=== PATIENT | female | born 1950 | race Caucasian/White ===

== ENCOUNTER 2023-10-06 13:03 | Outpatient (OUT) | payer MEDICARE, OTHER, SELFPAY ==
[2023-10-06 13:44] LABS: Microalbumin Urine Random <1.3 mg/dL (<=30.0)
[2023-10-06 13:48] LABS: Estimated Average Glucose 117 mg/dL; Glycohemoglobin A1C 5.7 % (4.5-6.2)
[2023-10-06 13:50] LABS: Basophils Absolute Auto 0.1 10^3/uL (0.0-0.1); Eosinophils Absolute Auto 0.1 10^3/uL (0.0-0.7); Hematocrit 39.3 % (36.0-48.0); Hemoglobin 13.2 g/dL (12.0-16.0); Immature Granulocytes Abs Auto 0.02 10^3/uL (0.00-0.03); Immature Granulocytes Pct Auto 0.2 % (0.0-0.5); Lymphocytes Absolute Auto 2.1 10^3/uL (1.2-3.8); Lymphocytes Percent Auto 24.6 % (20.5-60.0); Mean Corpuscular HGB Conc 33.6 g/dL (29.9-35.2); Mean Corpuscular Hemoglobin 33.3 pg (26.7-34.0); Mean Corpuscular Volume 99.2 fL (81.0-99.0); Mean Platelet Volume 9.7 fL (9.5-13.5); Monocytes Absolute Auto 0.8 10^3/uL (0.3-0.8); Monocytes Percent Auto 9.2 % (1.7-12.0); Neutrophils Absolute Auto 5.4 10^3/uL (1.4-6.5); Platelet Count 231 10^3/uL (150-450); Red Blood Count 3.96 10^6/uL (4.20-5.40); Red Cell Distribution Width 11.8 % (11.0-15.0); White Blood Count 8.4 10^3/uL (4.0-11.0)
[2023-10-06 14:02] LABS: Alanine Aminotransferase 23 U/L (14-59); Albumin Globulin Ratio 0.9; Albumin Level 3.4 g/dL (3.4-5.0); Alkaline Phosphatase 86 U/L (46-116); Anion Gap 11.9; Aspartate Amino Transferase 17 U/L (15-37); BUN Creatinine Ratio 17.5; Bilirubin Total 0.3 mg/dL (0.2-1.0); Carbon Dioxide 27.6 mmol/L (21.0-32.0); Chloride 104 mmol/L (98-107); Chol HDL Ratio 1.6; Cholesterol 119 mg/dL (<=200); Estimated GFR (African America >60 (>=60); Estimated GFR (Non-African Ame >60 (>=60); Globulin 3.6 g/dL; Glucose 82 mg/dL (74-106); HDL Cholesterol 74 mg/dL (40-60); Potassium 3.5 mmol/L (3.5-5.1); Sodium 140 mmol/L (136-145); Triglycerides 78 mg/dL (<=150); VLDL CHOLESTEROL 15.6 mg/dL
[2023-10-06 14:35] LABS: Bilirubin Urine NEGATIVE (NEGATIVE); Blood Urine NEGATIVE (NEGATIVE); Clarity Urine CLEAR (CLEAR); Color Urine YELLOW (YELLOW); Glucose Urine UA NEGATIVE (NEGATIVE); Ketones Urine NEGATIVE (NEGATIVE); Leukocyte Esterase Urine NEGATIVE (NEGATIVE); Nitrite Urine NEGATIVE (NEGATIVE); Protein Urine NEGATIVE (NEG/TRACE); Specific Gravity Urine 1.015 (1.005-1.025); Urobilinogen Urine 0.2 EU/dL (0.2-1.0)
[2023-10-06 14:56] LABS: Bacteria Urine NONE SEEN #/HPF (NONE SEEN); RBC Urine NONE SEEN #/HPF (0-2); WBC Urine NONE SEEN #/HPF (NONE SEEN)
[2023-10-06 14:57] LABS: Cast Seen? NONE SEEN #/LPF (NONE SEEN); Crystals Seen? None Seen #/HPF (None Seen); Mucus Urine NONE SEEN (NONE SEEN); Squamous Epithelial Cell Urine NONE SEEN #/LPF (NONE/RARE)
== END 2023-10-06 13:04 | disposition home or self-care (01) ==
LOC: LAB 13:08
PROVIDERS: PCP Nurse Practitioner; Visit Provider Nurse Practitioner
DX: I10 Essential (primary) hypertension (principal); E55.9 Vitamin D deficiency, unspecified; E11.9 Type 2 diabetes mellitus without complications; E78.5 Hyperlipidemia, unspecified
CPT/HCPCS: 36415; 80053; 80061; 81001; 82043; 82306; 83036; 85025

== ENCOUNTER 2023-12-25 12:46 | Outpatient (OUT) | payer MEDICARE, OTHER, SELFPAY ==
--- NOTE | 2023-12-25 12:52 | MM_ITS ---
Patient Name: SHAHRAM DAVIS MR#: [id number] : 1950 Exam Date: 12/25/2023 Ordering Doctor: PHILIP Medrano CNP RADIOLOGY REPORT PROCEDURE: MM TOMOSYNTHESIS SCREENING BI COMPARISON: MG MAMM SCREEN 3D ARIAN CAD, 12/23/2022. INDICATIONS: Screening Calculator Name NCI Breast Cancer Risk Assessment Tool 5 Year Breast Cancer Risk 1.50% Lifetime Breast Cancer Risk 4.10% Personal Breast Cancer No Personal Ovarian Cancer Yes, age 42 Treatments None Family Cancers Father with lung cancer at age 78. LOCATION: [facility] BREAST COMPOSITION: Heterogeneously dense,which may obscure small masses. FINDINGS: DIAGNOSTIC CATEGORY 2--BENIGN FINDING. NO CHANGE FROM COMPARISON. Scattered benign-appearing nodules are present. Scattered benign-appearing calcifications are present. Scattered benign-appearing lymph nodes are present. RIGHT BREAST: No significant suspicious finding. LEFT BREAST: No significant suspicious finding. RECOMMENDATIONS: ROUTINE MAMMOGRAM AND CLINICAL EVALUATION IN 12 MONTHS. PLEASE NOTE: A NORMAL MAMMOGRAM DOES NOT EXCLUDE THE POSSIBILITY OF BREAST CANCER. A CLINICALLY SUSPICIOUS PALPABLE LUMP SHOULD BE BIOPSIED. Dictated by: Pedro Anders MD on 12/25/2023 at 14:12 Approved by: Pedro Anders MD on 12/25/2023 at 14:24
--- OUTSIDE RECORDS SUMMARY | 2023-12-25 13:02 | XMS_ITS | CCD ---
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 Helper Name Role Phone Pedro Perez Primary Care Provider [phone] AICHHOLZ, SECURITIES BROKER NATALIE Admitting Unavailable AICHHOLZ, SECURITIES BROKER NATALIE Primary Care Unavailable AICHHOLZ, SECURITIES BROKER NATALIE Consulting Unavailable AICHHOLZ, SECURITIES BROKER NATALIE Attending Unavailable AICHHOLZ, SECURITIES BROKER NATALIE Primary Care Unavailable AICHHOLZ, SECURITIES BROKER NATALIE Attending Unavailable AICHHOLZ, SECURITIES BROKER NATALIE Admitting Unavailable DR LEDA CARRILLO V Consulting Unavailable AICHHOLZ, PHILIP NATALIE Consulting Unavailable Aichholz MICROARRAY SPECIALIST, Natalie Unavailable Daniel Lutz MD Primary Care Provider [phone] AICHHOLZ, NATALIE Attending Unavailable Allergies Allergy Classification Reported Allergen(s) Allergy Type Date of Onset Reaction(s) Facility Niacin (1 source) Niacin Drug Allergy 5 Itching [facility] (1 source) Niacin Drug Allergy 5 [facility] (3 sources) Niacin Drug Allergy 5 Itching, Unknown [facility] Work Phone: Medications Current Medications Medication Drug Class(es) Dates Sig (Normalized) Sig (Original) alendronic acid 35 mg oral tablet (4 sources) Bisphosphonate take 1 tablet by linda th in the morning alendronate (Fosamax) 35 MG tablet Take 35 mg by mouth every 7 (seven) days Take in the morning with a full glass of water, on an empty stomach, and do not take anything else by mouth or lie down for the next 30 min. 0 Active take 1 tablet by mouth every wee k alendronate (FOSAMAX) 35 mg tablet Take 35 mg by mouth once each week. 0 Active Comment on above: Take 35 mg by mouth once each week. aspirin 81 mg delayed release oral tablet (4 sources) Platelet Aggregation Inhibitor, Nonsteroidal Anti-inflammatory Drug take 1 tablet by mouth in the morning aspirin 81 MG EC tablet Take 81 mg by mouth in the morning. 0 Active Comment on above: Take 81 mg by mouth once daily. cholecalciferol 0.05 mg oral tablet (4 sources) Vitamin D take 1 tablet by mouth in the morning cholecalciferol 50 MCG (2000 UT) tablet Take 2,000 Units by mouth in the morning. 0 Active cholecalciferol (VITAMIN D3) 1,000 unit tab Take 6,000 Units by mouth once daily. 0 Active Comment on above: Take 6,000 Units by mouth once daily. dilTIAZem hydrochloride 30 mg oral tablet (4 sources) Calcium Channel Kateryna take 1 tablet by mouth every eight hours dilTIAZem (Cardizem) 30 MG immediate release tablet Take 30 mg by mouth every 8 (eight) hours 0 Active take 1 tablet by mouth three jose es daily diltiazem (CARDIZEM) 30 mg tablet Take 30 mg by mouth three times daily. 0 Active Comment on above: Take 30 mg by mouth three times daily. glipiZIDE 5 mg oral tablet (4 sources) Sulfonylurea take 1 tablet by mouth once daily glipiZIDE (Glucotrol) 5 MG tablet Take 5 mg by mouth 1 (one) time each day 0 Active take 1 tablet by linda th twice daily before mealtime glipiZIDE (GLUCOTROL) 10 mg tablet Take 10 mg by mouth twice daily before meals. 0 Active Comment on above: Take 10 mg by mouth twice daily before meals. 24 hr isosorbide mononitrate 30 mg extended release oral tablet (3 sources) Nitrate Vasodilator take 1 tablet by mouth in the morning, then take 1 tablet by mouth every twenty-four hours isosorbide mononitrate ER (Imdur) 30 MG 24 hr tablet Take 30 mg by mouth in the morning. Do not crush or chew.. 0 Active lisinopril 20 mg oral tablet (4 sources) Angiotensin Converting Enzyme Inhibitor take 1 tablet by mouth in the morning lisinopril 20 MG tablet Take 20 mg by mouth in the morning. 0 Active take 1 tablet by mouth once harman y lisinopril (ZESTRIL, PRINIVIL) 10 mg tablet Take 10 mg by mouth once daily. 0 Active Comment on above: Take 10 mg by mouth once daily. loratadine 10 mg oral capsule (4 sources) take 1 capsule by mouth once daily Loratadine 10 MG capsule Take 10 mg by mouth 1 (one) time each day 0 Active take 1 tablet by mouth once harman y loratadine (CLARITIN) 10 mg tablet Take 10 mg by mouth once daily. 0 Active Comment on above: Take 10 mg by mouth once daily. magnesium oxide 600 mg / pyridoxine hydrochloride 25 mg oral tablet (3 sources) take 1 tablet by mouth in the morning magnesium oxide-pyridoxine (Beelith) 362-20 MG tablet Take 1 tablet by mouth in the morning. 0 Active metFORMIN hydrochloride 500 mg oral tablet (4 sources) Biguanide take 1 tablet by mouth at mealtime metFORMIN (Glucophage) 500 MG tablet Take 500 mg by mouth in the morning. Take with meals. 0 Active Comment on above: Take 500 mg by mouth once daily. Multiple Vitamins-Minerals (CENTRUM SILVER PO) (3 sources) Multiple Vitamins-Minerals (CENTRUM SILVER PO) Take by mouth 0 Active [place]-3 Fatty Acids (Fish Oil) 1000 MG capsule delayed-release (3 sources) take 1 capsule by mouth in the morning [place]-3 Fatty Acids (Fish Oil) 1000 MG capsule delayed-release Take 1,000 mg by mouth in the morning and 1,000 mg before bedtime. 0 Active rosuvastatin calcium 20 mg oral tablet (3 sources) HMG-CoA Reductase Inhibitor take 1 tablet by mouth in the morning rosuvastatin (Crestor) 20 MG tablet Take 20 mg by mouth in the morning. 0 Active vitamin e 180 mg oral capsule (3 sources) take 1 capsule by mouth in the morning Vitamin E (E-400-Clear) 268 MG (400 UNIT) capsule Take 400 Units by mouth in the morning. 0 Active Completed/Discontinued Medications Medication Drug Class(es) Dates Sig (Normalized) Sig (Original) ascorbic acid 500 mg chewable tablet (1 source) Vitamin C take 500 mg by mouth once daily Ascorbic Acid chew Take 500 mg by mouth once daily. 0 Active Comment on above: Take 500 mg by mouth once daily. gemfibrozil 600 mg oral tablet (1 source) Peroxisome Proliferator Receptor alpha Agonist take 1 tablet by mouth once daily gemfibrozil (LOPID) 600 mg tablet Take 600 mg by mouth once daily. 0 Active Comment on above: Take 600 mg by mouth once daily. multivitamin tablet (1 source) take 1 tablet by mouth once daily multivitamin tablet Take 1 tablet by mouth once daily. 0 Active Comment on above: Take 1 tablet by linda th once daily. omeprazole 20 mg delayed release oral capsule (1 source) Proton Pump Inhibitor take 1 capsule by mouth once daily omeprazole (PRILOSEC) 20 mg capsule Take 20 mg by mouth once daily. 0 Active Comment on above: Take 20 mg by mouth once daily. simvastatin 20 mg oral tablet (1 source) HMG-CoA Reductase Inhibitor take 1 tablet by mouth once daily at bedtime simvastatin (ZOCOR) 20 mg tablet Take 20 mg by mouth daily at bedtime. 0 Active Comment on above: Take 20 mg by mouth daily at bedtime. Problems Active Problems Problem Classification Problem Date Documented Date Episodic/Chronic Chronic obstructive pulmonary disease and bronchiectasis (5 sources) Chronic obstructive lung disease; Translations: [Chronic obstructive pulmonary disease, unspecified] Onset: 10-26-2023 10-26-2023 Chronic Diabetes mellitus without complication (6 sources) Type 2 diabetes mellitus without complications; Translations: [Type 2 diabetes mellitus] Onset: 08-28-2022 10-26-2023 Chronic Disorders of lipid metabolism (4 sources) Hyperlipidemia, unspecified; Translations: [Hyperlipidemia] Onset: 08-28-2022 10-26-2023 Chronic Esophageal disorders (5 sources) Gastroesophageal reflux disease; Translations: [Gastro-esophageal reflux disease without esophagitis] Onset: 10-26-2023 10-26-2023 Chronic Essential hypertension (9 sources) Essential (primary) hypertension; Translations: [Hypertensive disorder] Onset: 08-24-2022 Chronic Nutritional deficiencies (6 sources) Vitamin D deficiency, unspecified; Translations: [Vitamin D deficiency] Onset: 08-28-2022 10-26-2023 Chronic Nutritional deficiencies (3 sources) Vitamin deficiency; Translations: [Vitamin deficiency, unspecified] Onset: 10-26-2023 10-26-2023 Episodic Osteoporosis (5 sources) Osteoporosis; Translations: [Age-related osteoporosis without current pathological fracture] Onset: 10-26-2023 10-26-2023 Chronic Other and ill-defined heart disease (3 sources) Heart disease; Translations: [Heart disease, unspecified] Onset: 10-26-2023 10-26-2023 Chronic Other ear and sense organ disorders (3 sources) Chronic right myringitis; Translations: [Chronic myringitis, right ear] Onset: 10-26-2023 10-26-2023 Chronic Other ear and sense organ disorders (3 sources) Mixed conductive and sensorineural hearing loss, bilateral; Translations: [Mixed conductive and sensorineural hearing loss, bilateral] Onset: 10-26-2023 10-26-2023 Chronic Other screening for suspected conditions (not mental disorders or infectious disease) (13 sources) Encounter for screening mammogram for malignant neoplasm of breast; Translations: [Patient encounter status] Onset: 12-23-2022 Episodic Otitis media and related conditions (6 sources) Otitis media; Translations: [Unspecified nonsuppurative otitis media, bilateral] Onset: 10-26-2023 10-26-2023 Episodic Residual codes; unclassified (1 source) Family history of malignant neoplasm of trachea, bronchus and lung; Translations: [FAM HX MALIG NEOPLSM TRACH BRON LNG] Onset: 12-29-2022 Episodic Residual codes; unclassified (3 sources) Tobacco user; Translations: [Tobacco use] Onset: 10-26-2023 10-26-2023 Episodic Spondylosis; intervertebral disc disorders; other back problems (3 sources) Lumbar radiculopathy; Translations: [Radiculopathy, lumbar region] Onset: 10-26-2023 10-26-2023 Episodic Past or Other Problems Problem Classification Problem Date Documented Da te Episodic/Chronic Mood disorders (2 sources) Mood disorders Onset: 10-26-2023 10-26-2023 Results Test Name Value Interpretation Reference Range Facility [facility] MAMM SCREEN 3D ARIAN CADon 12-23-2022 MG MAMM SCREEN 3D ARIAN CAD Patient: MARITZA ZAVALA Exam Date: 12/23/2022 : 1950 Gender:F Ordering : PHILIP MEDRANO CNP Admission #: [id number] Family : Order #: [id number] CLICK HERE TO VIEW EXAM RADIOLOGY REPORT PROCEDURE: MAMMOGRAM SCREENING 3D BILATERAL CAD COMPARISON: MG MAMM SCREEN ARIAN W CAD, 11/08/2018. MG MAMM SCREEN 3D ARIAN CAD, 01/13/2021. INDICATIONS: Screening mammography Calculator Name NCI Breast Cancer Risk Assessment Tool 5 Year Breast Cancer Risk 1.50% Lifetime Breast Cancer Risk 4.30% Personal Breast Cancer No Personal Ovarian Cancer No Treatments None Family Cancers Father with lung cancer at age 78. LOCATION: [facility] BREAST COMPOSITION: Heterogeneously dense,which may obscure small masses. FINDINGS: DIAGNOSTIC CATEGORY 2--BENIGN FINDING. NO CHANGE FROM COMPARISON. Scattered benign-appearing calcifications are present. Scattered benign-appearing lymph nodes are present. RIGHT BREAST: No significant suspicious finding. LEFT BREAST: No significant suspicious finding. RECOMMENDATIONS: ROUTINE MAMMOGRAM AND CLINICAL EVALUATION IN 12 MONTHS. PLEASE NOTE: A NORMAL MAMMOGRAM DOES NOT EXCLUDE THE POSSIBILITY OF BREAST CANCER. A CLINICALLY SUSPICIOUS PALPABLE LUMP SHOULD BE BIOPSIED. Dictated by: Leda Carrillo MD on 12/26/2022 at 10:01 Approved by: Leda Carrillo MD on 12/26/2022 at 10:[address] [facility] CBC AUTO DIFFon 08-24-2022 BASO # 0.1 103/ul Normal 0.0-0.1 [facility] Comment on above: Performed By: #### C BC #### [facility] [address] [place] [address] Dr. Steven Jones Basophils/100 WBC (Bld) 0.9 % Normal 0.2-2.0 [facility] Comment on above: Performed By: #### C BC #### [facility] [address] [place] [address] Dr. Steven Jones EO # 0.1 103/ul Normal 0.0-0.7 [facility] Comment on above: Performed By: #### C BC #### [facility] [address] [place] [address] Dr. Steven Jones Eosinophils/100 WBC (Bld) 0.9 % Normal 0.9-7.0 [facility] Comment on above: Performed By: #### C BC #### [facility] [address] [place] [address] Dr. Steven Jones Erythrocyte distribution width (RBC) [Ratio] 12.0 % Normal 11.0-15.0 [facility] Comment on above: Performed By: #### C BC #### [facility] [address] [place] [address] Dr. Steven Jones Hematocrit (Bld) [Volume fraction] 39.2 % Normal 36.0-48.0 [facility] Comment on above: Performed By: #### C BC #### [facility] [address] [place] [address] Dr. Steven Jones Hemoglobin (Bld) [Mass/Vol] 13.3 g/dL Normal 12.0-16.0 [facility] Comment on above: Performed By: #### C BC #### [facility] [address] [place] [address] Dr. Steven Jones IG # 0.02 10e3/ul Normal 0.00-0.03 [facility] Comment on above: Performed By: #### C BC #### [facility] [address] [place] [address] Dr. Steven Jones IG % 0.3 % Normal 0.0-0.5 [facility] Comment on above: Performed By: #### C BC #### [facility] [address] [place] [address] Dr. Steven Jones LYMPH # 2.1 103/ul Normal 1.2-3.8 [facility] Comment on above: Performed By: #### C BC #### [facility] [address] [place] [address] Dr. Steven Jones Lymphocytes/100 WBC (Bld) 25.8 % Normal 20.5-60.0 [facility] Comment on above: Performed By: #### C BC #### [facility] [address] [place] [address] Dr. Steven Jones MANUAL DIFF REQ NO Normal [facility] Comment on above: Performed By: #### C BC #### [facility] [address] [place] [address] Dr. Steven Jones MCH (RBC) [Entitic mass] 33.2 pg Normal 26.7-34.0 [facility] Comment on above: Performed By: #### C BC #### [facility] [address] [place] [address] Dr. Steven Jones MCHC (RBC) [Mass/Vol] 33.9 g/dL Normal 29.9-35.2 [facility] Comment on above: Performed By: #### C BC #### [facility] [address] [address] [address] Steven Jones MCV (RBC) [Entitic vol] 97.8 fL Normal 81.0-99.0 [facility] Comment on above: Performed By: #### C BC #### [facility] [address] [address] [address] Steven Jones MONO # 0.7 103/ul Normal 0.3-0.8 [facility] Comment on above: Performed By: #### C BC #### [facility] [address] [place] [address] Dr. Steven Jones Monocytes/100 WBC (Bld) 8.8 % Normal 1.7-12.0 [facility] Comment on above: Performed By: #### C BC #### [facility] [address] [place] [address] Dr. Steven Jones NEUT # 5.1 103/ul Normal 1.4-6.5 [facility] Comment on above: Performed By: #### C BC #### [facility] [address] [place] [address] Dr. Steven Jones Neutrophils/100 WBC (Bld) 63.3 % Normal 43.0-75.0 [facility] Comment on above: Performed By: #### C BC #### [facility] [address] [place] [address] Dr. Steven Jones Platelet mean volume (Bld) [Entitic vol] 9.6 fL Normal 9.5-13.5 [facility] Comment on above: Performed By: #### C BC #### [facility] [address] [place] [address] Dr. Steven Jones PLT 199 103/ul Normal 150-[address] [facility] Comment on above: Performed By: #### C BC #### [facility] [address] [place] [address] Dr. Steven Jones RBC 4.01 106/ul Critically low 4.20-5.40 [facility] Comment on above: Performed By: #### C BC #### [facility] [address] [address] [address] Steven Jones WBC 8.0 103/ul Normal 4.0-11.0 [facility] Comment on above: Performed By: #### C BC #### [facility] [address] [address] [address] Steven Jones GLYCOHEMOGLOBIN A1Con 2021 ADA RECOMMENDATION SEE BELOW Normal [facility] Comment on above: Result Comment: ADA RECOMMENDED LIMIT 4.0 - 6.0 ADA THERAPEUTIC TARGET < 7.0 ACTION SUGGESTED > 7.0 Performed By: #### A 1C #### [facility] [address] [place] [address] Dr. Steven Jones Glucose [Mass/Vol] 117 mg/dL Normal [facility] Comment on above: Performed By: #### A 1C #### [facility] [address] [place] [address] Dr. Steven Jones HbA1c (Bld) [Mass fraction] 5.7 % Normal 4.5-6.2 [facility] Comment on above: Performed By: #### A 1C #### [facility] [address] [place] [address] Dr. Steven Jones LIPID PROFILEon 08-24-2022 CHOL-HDL RATIO NORM SEE BELOW Normal [facility] Comment on above: Result Comment: 3.3 - 4.4 LOW RISK 4.4 - 7.1 AVERAGE RISK 7.1 - 11.0 MODERATE RISK >11.0 HIGH RISK Performed By: #### L IPID, CMP #### [facility] [address] [place] [address] Dr. Steven Jones Cholesterol [Mass/Vol] 110 mg/dL Normal <=200 [facility] Comment on above: Performed By: #### L IPID, CMP #### [facility] [address] [place] [address] Dr. Steven Jones Cholesterol in HDL [Mass/Vol] 64 mg/dL Critically high 40-60 [facility] Comment on above: Performed By: #### L IPID, CMP #### [facility] [address] [address] [address] Steven Jones Cholesterol in LDL [Mass/Vol] 21.2 mg/dL Normal [facility] Comment on above: Performed By: #### L IPID, CMP #### [facility] [address] [address] [address] Steven Jones Cholesterol.total/Cho lesterol in HDL [Mass ratio] 1.7 {ratio} Normal [facility] Comment on above: Performed By: #### L IPID, CMP #### [facility] [address] [address] [address] Steven Jones HDL NORMAL > or = 60 mg/dl - LO W CARDIOVASCULAR RISK <40 mg/dl - HIGH CARDIOVASCULAR RISK Normal [facility] Comment on above: Performed By: #### L IPID, CMP #### [facility] [address] [address] [address] Steven Jones LDL CALC NORMAL SEE BELOW Normal [facility] Comment on above: Result Comment: <100 mg/dl OPTIMAL 100 - 129 mg/dl NEAR OR ABOVE OPTIMAL 130 - 159 mg/dl BORDERLINE HIGH 160 - 189 mg/dl HIGH >190 mg/dl VERY HIGH Performed By: #### L IPID, CMP #### [facility] [address] [place] [address] Dr. Steven Jones Triglyceride [Mass/Vol] 124 mg/dL Normal <=150 [facility] Comment on above: Performed By: #### L IPID, CMP #### [facility] [address] [address] [address] Steven Jones VLDL CALC 24.8 mg/dL Normal [facility] Comment on above: Performed By: #### L IPID, CMP #### [facility] [address] [address] [address] Steven Jones MICROALBUMIN, RAND URon 12- mALB <1.3 Normal <=30.[address] [facility] Comment on above: Performed By: #### M ALBR #### [facility] [address] [address] [address] Steven Jones PROF 14(COMP METB)on 022 Albumin [Mass/Vol] 3.3 g/dL Critically low 3.4-5.0 [facility] Comment on above: Performed By: #### L IPID, CMP #### [facility] [address] [address] [address] Steven Jones Albumin/Globulin [Mass ratio] 0.9 {ratio} Normal [facility] Comment on above: Performed By: #### L IPID, CMP #### [facility] [address] [address] [address] Steven Jones ALP [Catalytic activity/Vol] 79 U/L Normal 46-116 [facility] Comment on above: Performed By: #### L IPID, CMP #### [facility] [address] [address] [address] Steven Jones ALT [Catalytic activity/Vol] 20 U/L Normal 14-59 [facility] Comment on above: Performed By: #### L IPID, CMP #### [facility] [address] [address] [address] Steven Jones Anion gap [Moles/Vol] 9.3 mmol/L Normal [facility] Comment on above: Performed By: #### L IPID, CMP #### [facility] [address] [address] [address] Steven Jones AST [Catalytic activity/Vol] 18 U/L Normal 15-37 [facility] Comment on above: Performed By: #### L IPID, CMP #### [facility] [address] [address] [address] Steven Jones Bilirubin [Mass/Vol] 0.4 mg/dL Normal 0.2-1.0 [facility] Comment on above: Performed By: #### L IPID, CMP #### [facility] [address] [address] [address] Steven Jones Calcium [Mass/Vol] 8.5 mg/dL Normal 8.5-10.1 [facility] Comment on above: Performed By: #### L IPID, CMP #### [facility] [address] [address] [address] Steven Jones Chloride [Moles/Vol] 105 mmol/L Normal 98-[address] [facility] Comment on above: Performed By: #### L IPID, CMP #### [facility] [address] [address] [address] Steven Jones CO2 [Moles/Vol] 29.7 mmol/L Normal 21.0-32.0 [facility] Comment on above: Performed By: #### L IPID, CMP #### [facility] [address] [address] [address] Steven Jones Creatinine [Mass/Vol] 0.54 mg/dL Critically low 0.55-1.[address] [facility] Comment on above: Performed By: #### L IPID, CMP #### [facility] [address] [address] [address] Steven Jones EGFR-AF PUERTO RICAN >60 Normal >=60 [facility] Comment on above: Performed By: #### L IPID, CMP #### [facility] [address] [address] [address] Steven Jones EGFR-NON AF PUERTO RICAN >60 Normal >=60 [facility] Comment on above: Performed By: #### L IPID, CMP #### [facility] [address] [address] [address] Steven Jones Globulin (S) [Mass/Vol] 3.5 g/dL Normal [facility] Comment on above: Performed By: #### L IPID, CMP #### [facility] [address] [address] [address] Steven Jones Glucose [Mass/Vol] 86 mg/dL Normal 74-106 [facility] Comment on above: Performed By: #### L IPID, CMP #### [facility] [address] [address] [address] Steven Jones Potassium [Moles/Vol] 4.0 mmol/L Normal 3.5-5.1 [facility] Comment on above: Performed By: #### L IPID, CMP #### [facility] [address] [place] [address] Dr. Steven Jones Protein [Mass/Vol] 6.8 g/dL Normal 6.4-8.2 [facility] Comment on above: Performed By: #### L IPID, CMP #### [facility] [address] [place] [address] Dr. Steven Jones Sodium [Moles/Vol] 140 mmol/L Normal 136-145 [facility] Comment on above: Performed By: #### L IPID, CMP #### [facility] [address] [place] [address] Dr. Steven Jones Urea nitrogen [Mass/Vol] 9.0 mg/dL Normal 7.0-18.0 [facility] Comment on above: Performed By: #### L IPID, CMP #### [facility] [address] [place] [address] Dr. Steven Jones Urea nitrogen/Creatinine [Mass ratio] 16.7 mg/mg Normal [facility] Comment on above: Performed By: #### L IPID, CMP #### [facility] [address] [place] [address] Dr. Steven Jones UA RANDOM W/MICROSCOPICon BACTERIA NONE SEEN Normal NONE SEEN [facility] Comment on above: Performed By: #### U AMIC #### [facility] [address] [place] [address] Dr. Steven Jones Bilirubin Ql (U) Negative Normal NEGATIVE [facility] Comment on above: Performed By: #### U AMIC #### [facility] [address] [place] [address] Dr. Steven Jones CAST NONE SEEN Normal NONE SEEN [facility] Comment on above: Performed By: #### U AMIC #### [facility] [address] [place] [address] Dr. Steven Jones Clarity (U) CLEAR Normal CLEAR [facility] Comment on above: Performed By: #### U AMIC #### [facility] [address] [place] [address] Dr. Steven Jones Color (U) YELLOW Normal YELLOW [facility] Comment on above: Performed By: #### U AMIC #### [facility] [address] [address] [address] Steven Jones Crystals LM Nom (Urine sed) NONE SEEN Normal NONE SEEN [facility] Comment on above: Performed By: #### U AMIC #### [facility] [address] [address] [address] Steven Jones Epithelial cells LM Ql (Urine sed) RARE Normal NONE SEEN /RARE [facility] Comment on above: Performed By: #### U AMIC #### [facility] [address] [address] [address] Steven Jones Glucose Ql (U) Negative Normal NEGATIVE [facility] Comment on above: Performed By: #### U AMIC #### [facility] [address] [address] [address] Steven Jones Hemoglobin Ql (U) Negative Normal NEGATIVE [facility] Comment on above: Performed By: #### U AMIC #### [facility] [address] [address] [address] Steven Jones Ketones Ql (U) Negative Normal NEGATIVE [facility] Comment on above: Performed By: #### U AMIC #### [facility] [address] [address] [address] Steven Jones LEUKOCYTES Negative Normal NEGATIVE [facility] Comment on above: Performed By: #### U AMIC #### [facility] [address] [address] [address] Steven Jones MUCOUS TRACE Abnormal NONE SEEN [facility] Comment on above: Performed By: #### U AMIC #### [facility] [address] [address] [address] Steven Jones Nitrite Ql (U) Negative Normal NEGATIVE [facility] Comment on above: Performed By: #### U AMIC #### [facility] [address] [address] [address] Steven Jones pH (U) 7.0 [pH] Normal 5-[address] [facility] Comment on above: Performed By: #### U AMIC #### [facility] [address] [place] [address] Dr. Steven Jones RBC 0-2 Normal 0-[address] [facility] Comment on above: Performed By: #### U AMIC #### [facility] [address] [place] [address] Dr. Steven Jones SPEC GRAVITY 1.020 Normal 1.005-<=1.025 [facility] Comment on above: Performed By: #### U AMIC #### [facility] [address] [place] [address] Dr. Steven Jones UA PROTEIN Negative Normal NEGATIVE/ TRACE [facility] Comment on above: Performed By: #### U AMIC #### [facility] [address] [place] [address] Dr. Steven Jones Urobilinogen Qn (U) 1.0 {Oracio'U}/dL Normal 0.2 - 1. 0 [facility] Comment on above: Performed By: #### U AMIC #### [facility] [address] [place] [address] Dr. Steven Jones WBC 0-2 Abnormal NONE SEEN [facility] Comment on above: Performed By: #### U AMIC #### [facility] [address] [place] [address] Dr. Steven Jones VITAMIN D 25 OHon 08-24-2022 VIT D 25-OH 36.1 ng/mL Normal [facility] Comment on above: Performed By: #### V ITAD #### [facility] [address] [place] [address] Dr. Steven Jones VIT D RANGES SEE BELOW Normal [facility] Comment on above: Result Comment: <20 ng/mL Vit D deficient 20 - <30 ng/mL Vit D insufficient 30 - 100 ng/mL Vit D sufficient >100 ng/mL Potential Toxicity Performed By: #### V ITAD #### [facility] [address] [place] [address] Dr. Steven Jones Vital Signs Date Time Vital Sign Value Performing Clinician Faci lity 10-26-2023 17:31-0500 Body height 165.1 cm Natalie Medrano MICROARRAY SPECIALIST Work Phone: [facility] 10-26-2023 17:31-0500 Body mass index (BMI) [Ratio] 20.97 kg/m2 Natalie Mitchell MICROARRAY SPECIALIST Work Phone: [facility] 10-26-2023 17:31-0500 Body temperature 97.11 [degF] Natalie Mitchell MICROARRAY SPECIALIST Work Phone: [facility] 10-26-2023 17:31-0500 Body weight 57.15 kg Natalie Mitchell MICROARRAY SPECIALIST Work Phone: [facility] 10-26-2023 17:31-0500 Diastolic blood pressure 78 mm[Hg] Natalie Mitchell MICROARRAY SPECIALIST Work Phone: [facility] 10-26-2023 17:31-0500 Heart rate 87 /min Natalie Mitchell MICROARRAY SPECIALIST Work Phone: [facility] 10-26-2023 17:31-0500 Respiratory rate 18 /min Natalie Mitchell MICROARRAY SPECIALIST Work Phone: [facility] 10-26-2023 17:31-0500 SaO2% (BldA) [Mass fraction] 97 % Natalie Mitchell MICROARRAY SPECIALIST Work Phone: [facility] 10-26-2023 17:31-0500 Systolic blood pressure 124 mm[Hg] Natalie Mitchell MICROARRAY SPECIALIST Work Phone: [facility] Healthcare Encounters Encounter Date Encounter Type Care Provider Facility Start: 10-26-2023 End: 10-26-2023 ambulatory NATALIE MITCHELL Not Available Start: 10-26-2023 Bamboo flowsheet Natalie Mitchell MICROARRAY SPECIALIST Work Phone: [facility] Start: 10-26-2023 Bamboo flowsheet Natalie Mitchell MICROARRAY SPECIALIST Work Phone: [facility] Start: 10-26-2023 End: 10-26-2023 Patient encounter procedure Natalie Medrano MICROARRAY SPECIALIST Work Phone: [facility] Comment on above: Encounter for subseq uent annual wellness visit (AWV) in Medicare patient (Primary Dx); Screening mammogram for breast cancer; Primary hypertension ([facility]); Chronic obstructive pulmonary disease, unspecified COPD type ([facility]); Gastroesophageal reflux disease, unspecified whether esophagitis present; Vitamin D deficiency; Type 2 diabetes mellitus without complication, without long-term current use of insulin ([facility]); Colon cancer screening; Osteoporosis, unspecified osteoporosis type, unspecified pathological fracture presence ([facility]) Start: 12-23-2022 End: 12-24-2022 ambulatory [employer] [facility] NATALIE MEDRANO Facility:[facility] Start: 08-24-2022 End: 08-25-2022 ambulatory [employer] NATALIE MEDRANO Facility:[facility] Start: 11-22-2016 End: 11-22-2016 Telephone encounter Caleb Avila MD Work Phone: Ophthalmology Comment on above: Future Appointment Procedures Date Procedure Procedure Detail Performing Clinician Start: 12-23-2022 Mammography Natalie rojas NP Work Phone: Plan of Treatment Date Care Activity Detail Author Start: 02-09-2025 Glaucoma screening Diabetes: R etinopathy Screening [facility] Start: 10-26-2024 Medicare Annual Wellness (AWV) Medicare Annual Wellness (AWV) [facility] Start: 10-06-2024 Urine screening for protein Diabetes: Urine Protein Screening [facility] Start: 04-25-2024 End: 04-25-2024 Patient encounter procedure 04/25/2024 1:20 PM EDT Office Visit [facility] [address] [place] [phone] Natalie Medrano NP [address] [place] [phone] [facility] Start: 04-11-2024 Pneumococcal Vaccine : 65+ Years (3 of 3 - PPSV23 or PCV20) Pneumococcal Vaccine: 65+ Years (3 of 3 - PPSV23 or PCV20) [facility] Comment on above: Postponed from 06/22 (Other Patient Reasons) Start: 01-05-2024 Hemoglobin A1c measurement Diabetes: Hemoglobin A1C [facility] Start: 12-25-2023 End: 12-24-2024 MG Breast - bilateral Screening Bilateral screening mammogram Imaging Routine Screening mammogram for breast cancer Expected: 12/25/2023 (Approximate), Expires: 12/24/2024 [facility] Work Phone: Comment on above: Expected: 12/25/2023 (Approximate), Expires: 12/24/2024 Start: 12-24-2023 Screening for malign ant neoplasm of breast Mammogram [facility] Start: 10-26-2023 End: 10-26-2023 Patient encounter procedure 10/26/2023 5:30 PM EST Office Visit [facility] [address] [place] [phone] Natalie Medrano NP [address] [place] [phone] Screening mammogram for breast cancer (Primary Dx) [facility] Comment on above: Screening mammogram for breast cancer (Primary Dx) Start: 10-26-2023 End: 10-26-2024 DXA Skeletal system Views for bone density DEXA bone density Imaging Routine Osteoporosis, unspecified osteoporosis type, unspecified pathological fracture presence ([facility]) Expected: 10/26/2023, Expires: 10/26/2024 [facility] Comment on above: Expected: 10/26/2023 , Expires: 10/26/2024 Start: 06-22-2021 Pneumococcal Vaccine : 65+ Years (3 of 3 - PPSV23 or PCV20) Pneumococcal Vaccine: 65+ Years (3 of 3 - PPSV23 or PCV20) [facility] Start: 05-12-2021 Influenza vaccination INFLUENZ A (Season Ended) [facility] Start: 2017 ADVANCE DIRECTIVE DISCUSSION ADVANCE DIRECTIVE DISCUSSION [facility] Start: 2017 BONE DENSITY BONE DENSITY [facility] Start: 2017 PNEUMOVAX AGE 65 AND OVER WITH 5YR LOOKBACK (#1) PNEUMOVAX AGE 65 AND OVER WITH 5YR LOOKBACK (#1) [facility] Start: 2002 Screening for malign ant neoplasm of colon [facility] Start: 2002 SHINGRIX VACCINE (1 of 2) SHINGRIX VACCINE (1 of 2) [facility] Start: 1997 DIABETES SCREEN DIABETES SCREEN [facility] Start: 1997 LIPID SCREEN LIPID SCREEN [facility] Start: 1992 Mammography MAMMOGRAM [facility] Start: 1971 Urine microalbumin profile DTAP,TDAP,TD (1 - Tdap) [facility] Start: 1970 HEPATITIS C SCREENING HEPATITIS C SC REENING [facility] Start: 1964 Adult depression screening assessment DEPRESSION SCREENING [facility] Start: 1962 Glaucoma screening Diabetes: R etinopathy Screening [facility] Start: 1952 Medicare Annual Wellness (AWV) Medicare Annual Wellness (AWV) [facility] Noninvasive colorect al cancer DNA and occult blood screening [Presence] in Stool Cologuard colon cancer screening Lab Routine Colon cancer screening Ordered: 10/26/2023 [facility] Comment on above: Ordered: 10/26/2023 Immunizations Immunization Date Immunization Notes Care Provider Fa [facility] 07-06-2023 Influenza, High-dose Seasonal, Quadrivalent, Preservative Free Natalie Aichholz MICROARRAY SPECIALIST Work Phone: [facility] 06-01-2022 Influenza, High-dose Seasonal, Quadrivalent, Preservative Free Natalie Aichholz MICROARRAY SPECIALIST Work Phone: [facility] 07-29-2021 Seasonal, quadrivale nt, recombinant, injectable influenza vaccine, preservative free Natalie Aichholz MICROARRAY SPECIALIST Work Phone: [facility] 06-06-2020 influenza, high dose seasonal, preservative-free Natalie Aichholz MICROARRAY SPECIALIST Work Phone: [facility] 06-05-2020 influenza, seasonal, injectable Natalie Aichholz MICROARRAY SPECIALIST Work Phone: [facility] 05-18-2019 influenza, high dose seasonal, preservative-free Natalie Aichholz MICROARRAY SPECIALIST Work Phone: [facility] 05-18-2019 pneumococcal conjuga te vaccine, 13 valent Natalie Aichholz MICROARRAY SPECIALIST Work Phone: [facility] 06-12-2018 influenza, high dose seasonal, preservative-free Natalie Aichholz MICROARRAY SPECIALIST Work Phone: [facility] 07-06-2017 influenza, high dose seasonal, preservative-free Natalie Aichholz MICROARRAY SPECIALIST Work Phone: [facility] 06-28-2017 influenza, injectabl e, quadrivalent, preservative free Natalie Aichholz MICROARRAY SPECIALIST Work Phone: [facility] 06-22-2016 pneumococcal polysaccharide vaccine, 23 valent Natalie Aichholz MICROARRAY SPECIALIST Work Phone: [facility] 06-22-2016 zoster vaccine, live Natalie chholz MICROARRAY SPECIALIST Work Phone: [facility] 06-17-2015 influenza, seasonal, injectable, preservative free Natalie Aichholz MICROARRAY SPECIALIST Work Phone: [facility] 04-07-2014 pneumococcal polysaccharide vaccine, 23 valent Natalie Aichholz MICROARRAY SPECIALIST Work Phone: [facility] 01-28-2014 zoster vaccine, live Natalie chholz MICROARRAY SPECIALIST Work Phone: [facility] 07-24-2013 influenza, seasonal, injectable Natalie Aichholz MICROARRAY SPECIALIST Work Phone: [facility] Healthcare Payers Date Payer Category Payer Unknown [employer] [id number] 2022-Present [address] [employer] [place] [address] [id number] 2017 Medicare MEDICARE MEDICAR E PART B [id number] 2017-[place] [address] [place] [address] Medicare [id number] 2015 Unknown [employer] [id number] 2015-Present PPO [id number] 1959 Medicare [id number] 1959 Unknown [id number] 1952 Unknown [id number] 1952 Unknown [id number] 1952 Unknown [id number] Social History Date Type Detail Facility Start: 07-31-2015 End: 10-26-2023 Tobacco smoking status DEIS Current every day smoker [facility] History of tobacco use Cigarette Smoker [facility] Start: 07-31-2015 End: 10-26-2023 Cigarettes smoked current (pack per day) - Reported [facility] Start: 07-31-2015 End: 10-26-2023 Alcohol intake Current drinker of alcohol (finding) [facility] Start: 1950 Sex Assigned [facility] Start: 10-23-2023 End: 10-26-2023 Tobacco use panel [facility] Start: 10-23-2023 Alcohol Comment caffeine 2-3 c ups per day [facility] Start: 10-26-2023 Tobacco use and exposure Smoke less tobacco non-user [facility] Within the last year , have you been afraid of your partner or ex-partner? No [facility] Do you belong to any clubs or organizations such as sikhism groups, unions, fraternal or athletic groups, or school groups? Yes [facility] Are you now , , , , never or living with a partner? [facility] How often to you hav e a drink containing alcohol? Monthly or less [facility] How many standard dr inks containing alcohol do you have on a typical day? Patient does not drink [facility] How often do you hav e 6 or more drinks on 1 occasion? Never [facility] Do you feel stress - tense, restless, nervous, or anxious, or unable to sleep at night because your mind is troubled all the time - these days [OSQ] Not at all [facility] (I/We) worried wheth er (my/our) food would run out before (I/we) got money to buy more. Never true [facility] History of Present illness Narrative 10-26-2023 Natalie Medrano NP - 10/26/2023 6:04 PM Jose Medrano, NURIA - 10/26/2023 6:03 PM Jose Medrano, NURIA - 10/26/2023 6:03 PM Jose Medrano, NURIA - 10/26/2023 6:02 PM EST Note Date & Type Note Facility 10-26-2023 History of Presen t illness Narrative Associated Problem(s): Encounter for subsequent annual wellness visit (AWV) in Medicare patient Reviewed Ht/Wt/BMI Recommend eye exam yearly Recommend dental exams twice a year Balance work/leisure activities Exercises is recommended most days of the week (appropriate as chronic conditions allow) Follow up yearly and prn Associated Problem(s): Type 2 diabetes mellitus ([facility]) Check blood sugars daily, notify if <70 or >200. Take medications (pills or insulin) as directed. Monitor for s/s of hypoglycemia (sweaty, dizziness, nausea, vomiting, or shakiness). Watch for increase in thirst, urination, or appetite. Inspect feet frequently monitoring for open wounds , and also recommend yearly eye exam. Pt should attempt to remain as physically active as chronic conditions allow, as well as trying to follow a diet low in carbohydrates, and simple sugars. Associated Problem(s): Vitamin D deficiency Reviewed labs Associated Problem(s): GERD (gastroesophageal reflux disease) stable Associated Problem(s): Hypertension (CMS/HCC) At goal Associated Problem(s): COPD (chronic obstructive pulmonary disease) (CMS/HCC) No changes in meds Stomach bug last week with cramps, gas, and diarrhea that lasted for a few days. 130/69 BP this morning Images from the original note were not included. Maritza Zavala is a 73 y.o. female presents with chief complaint of No chief complaint on file. HPI: AWV today Diabetes She has type 2 diabetes mellitus. Her disease course has been stable. There are no hypoglycemic associated symptoms. Pertinent negatives for hypoglycemia include no dizziness, headaches, nervousness/anxiousness, seizures or tremors. There are no diabetic associated symptoms. Pertinent negatives for diabetes include no chest pain, no foot ulcerations, no polydipsia, no polyphagia and no polyuria. There are no hypoglycemic complications. Symptoms are stable. There are no diabetic complications. Risk factors for coronary artery disease include dyslipidemia, diabetes mellitus, hypertension and tobacco exposure. Current diabetic treatment includes oral agent (monotherapy). She is compliant with treatment all of the time. She has not had a previous visit with a dietitian. Her overall blood glucose range is 110-130 mg/dl. An JENN inhibitor/angiotensin II receptor kateryna is being taken. She does not see a agronomy professor.Eye exam is current. Hypertension This is a chronic problem. The current episode started more than 1 year ago. The problem is unchanged. The problem is controlled. Pertinent negatives include no chest pain, headaches, palpitations or shortness of breath. There are no associated agents to hypertension. Risk factors for coronary artery disease include dyslipidemia, smoking/tobacco exposure and post-menopausal state. Past treatments include JENN inhibitors. The current treatment provides significant improvement. There are no compliance problems. SUBJECTIVE: MEDICATIONS: Current Outpatient Medications Medication Instructions alendronate (FOSAMAX) 35 mg, Oral, Every 7 days, Take in the morning with a full glass of water, on an empty stomach, and do not take anything else by mouth or lie down for the next 30 min. aspirin 81 mg, Oral, Daily cholecalciferol (CHOLECALCIFEROL) 2,000 Units, Oral, Daily dilTIAZem (CARDIZEM) 30 mg, Oral, Every 8 hours Fish Oil 1,000 mg, Oral, 2 times daily glipiZIDE (GLUCOTROL) 5 mg, Oral, Daily isosorbide mononitrate ER (IMDUR) 30 mg, Oral, Daily, Do not crush or chew. lisinopril 20 mg, Oral, Daily Loratadine 10 mg, Oral, Daily magnesium oxide-pyridoxine (Beelith) 362-20 MG tablet 1 tablet, Oral, Daily metFORMIN (GLUCOPHAGE) 500 mg, Oral, Daily with breakfast Multiple Vitamins-Minerals (CENTRUM SILVER PO) Oral rosuvastatin (CRESTOR) 20 mg, Oral, Daily Vitamin E (E-400-CLEAR) 400 Units, Oral, Daily ALLERGIES: Allergies Allergen Reactions Niacin Itching and Unknown REVIEW OF SYMPTOMS: Review of Systems Constitutional: Negative for appetite change, chills and fever. HENT: Negative for congestion, ear pain and sore throat. Eyes: Negative for pain, discharge, redness and visual disturbance. Respiratory: Negative for cough, shortness of breath and wheezing. Cardiovascular: Negative for chest pain, palpitations and leg swelling. Gastrointestinal: Negative for abdominal pain, blood in stool, constipation, diarrhea, nausea and vomiting. Genitourinary: Negative for difficulty urinating, dysuria and frequency. Musculoskeletal: Negative for arthralgias, back pain, joint swelling and myalgias. Skin: Negative for rash and wound. Neurological: Negative for dizziness, tremors, seizures, syncope and headaches. Psychiatric/Behavioral: Negative for behavioral problems, self-injury and suicidal ideas. The patient is not nervous/anxious. Hematological: Does not bruise/bleed easily. Endocrine: Negative for polydipsia, polyphagia and polyuria. Allergic/Immunologic: Negative for environmental allergies and food allergies. PAST MEDICAL HISTORY Past Medical History: Diagnosis Date Bilateral otitis media with effusion 10/26/2023 Chronic myringitis of right ear 10/26/2023 COPD (chronic obstructive pulmonary disease) ([facility] 10/26/2023 ETD (Eustachian tube dysfunction), bilateral 10/26/2023 GERD (gastroesophageal reflux disease) 10/26/2023 Heart problem 10/26/2023 Hyperlipidemia ([facility]) 10/26/2023 Hypertension ([facility]) 10/26/2023 Lumbar back pain with radiculopathy affecting left lower extremity 10/26/2023 Mixed conductive and sensorineural hearing loss of both ears 10/26/2023 Osteoporosis ([facility]) 10/26/2023 Tobacco user 10/26/2023 Type 2 diabetes mellitus ([facility]) 10/26/2023 Vitamin D deficiency 10/26/2023 Vitamin deficiency 10/26/2023 Past Surgical History: Procedure Laterality Date APPENDECTOMY 2007 with r/o 18 intestines BREAST LUMPECTOMY Right COLECTOMY Right MYRINGOTOMY W/ TUBES 08/25/2020 BMT, Timmis OTHER SURGICAL HISTORY 06/16/2015 bilat. T-tubes TONSILLECTOMY TOTAL ABDOMINAL HYSTERECTOMY 1993 family history includes Cancer in her paternal grandfather; Crohn's disease in her mother; Diabetes in her brother and paternal grandmother; Heart disease in her brother, maternal grandmother, and mother; fire in her maternal grandfather; high triglycerides in her mother. OBJECTIVE: Visit Vitals BP 124/78 (BP Location: Left arm, Patient Position: Sitting, BP Cuff Size: Adult long) Pulse 87 Temp 97.1 F (Temporal) Resp 18 Ht 5' 5 Wt 126 lb SpO2 97% BMI 20.97 kg/m Smoking Status Every Day BSA 1.62 m Physical Exam Vitals reviewed. Constitutional: General: She is not in acute distress. Appearance: Normal appearance. HENT: Head: Normocephalic and atraumatic. Right Ear: Tympanic membrane, ear canal and external ear normal. Left Ear: Tympanic membrane, ear canal and external ear normal. Ears: Comments: Scarring to TM's Nose: Nose normal. Mouth/Throat: Mouth: Mucous membranes are moist. Eyes: Extraocular Movements: Extraocular movements intact. Conjunctiva/sclera: Conjunctivae normal. Neck: Vascular: No carotid bruit. Cardiovascular: Rate and Rhythm: Normal rate and regular rhythm. Pulses: Normal pulses. Heart sounds: Normal heart sounds. Pulmonary: Effort: Pulmonary effort is normal. Breath sounds: Normal breath sounds. Abdominal: General: Bowel sounds are normal. There is no distension. Palpations: Abdomen is soft. There is no mass. Tenderness: There is no abdominal tenderness. Musculoskeletal: General: Normal range of motion. Cervical back: Normal range of motion and neck supple. Skin: General: Skin is warm and dry. Capillary Refill: Capillary refill takes 2 to 3 seconds. Findings: No rash. Neurological: General: No focal deficit present. Mental Status: She is alert and oriented to person, place, and time. Psychiatric: Mood and Affect: Mood normal. Behavior: Behavior normal. Thought Content: Thought content normal. Judgment: Judgment normal. ASSESSMENT AND PLAN: No follow-ups on file. Problem List Items Addressed This Visit COPD (chronic obstructive pulmonary disease) (CMS/HCC) No changes in meds Hypertension (CMS/[facility]) At goal GERD (gastroesophageal reflux disease) stable Osteoporosis ([facility]) Relevant Orders DEXA bone density Vitamin D deficiency Reviewed labs Type 2 diabetes mellitus ([facility]) Check blood sugars daily, notify if <70 or >200. Take medications (pills or insulin) as directed. Monitor for s/s of hypoglycemia (sweaty, dizziness, nausea, vomiting, or shakiness). Watch for increase in thirst, urination, or appetite. Inspect feet frequently monitoring for open wounds , and also recommend yearly eye exam. Pt should attempt to remain as physically active as chronic conditions allow, as well as trying to follow a diet low in carbohydrates, and simple sugars. Screening mammogram for breast cancer Relevant Orders Bilateral screening mammogram Encounter for subsequent annual wellness visit (AWV) in Medicare patient - Primary Reviewed Ht/Wt/BMI Recommend eye exam yearly Recommend dental exams twice a year Balance work/leisure activities Exercises is recommended most days of the week (appropriate as chronic conditions allow) Follow up yearly and prn Colon cancer screening Relevant Orders Cologuard colon cancer screening documented in this encounter [facility] Healthcare Note 11-22-2016 Telephone Encounter - Sole Fischer - 11/22/2016 12:30 PM EDT Note Date & Type Note Facility 11-22-2016 Miscellaneous Notes From: Sole Avila Sent: Tuesday, November 22, 2016 12:30 PM Left message on both # s to call back for scheduling. Thanks. From: Caleb Avila Sent: Tuesday, November 22, 2016 12:[address] Jordana Gallegos called me requesting that we see the patient below. Jennifer Zavala Her mom's cell# [phone] Could you call her and coordinate a time for us to see her in the next 1-3 weeks? documented in this encounter [facility] Evaluation note Note Date & Type Note Facility Evaluation note Diagnosis Encounter for subsequent annual wellness visit (AWV) in Medicare patient- Primary Screening mammogram for breast cancer Primary hypertension (CMS/HCC) Unspecified essential hypertension Chronic obstructive pulmonary disease, unspecified COPD type (CMS/HCC) Gastroesophageal reflux disease, unspecified whether esophagitis present Vitamin D deficiency Type 2 diabetes mellitus without complication, without long-term current use of insulin (CMS/HCC) Colon cancer screening Special screening for malignant neoplasms, colon Osteoporosis, unspecified osteoporosis type, unspecified pathological fracture presence (CMS/HCC) documented in this encounter [facility] Summary Purpose Family History No Family History Records FoundNo Family History Records Found Advance Directives No Advanced Directives Records FoundNo Advanced Directives Records Found Additional Source Comments Source Comments (unrecognize d section and content) In the event this informatio n is protected by the Federal Confidentiality of Alcohol and Drug Abuse Patient Records regulations: The Federal rules restrict any use of the information to criminally investigate or prosecute any alcohol or drug abuse patient.[facility] Reason for Visit (unrecogniz ed section and content) Reason Onset Date Comments Future Appointment 11/22/2016 INFORMATION SOURCE (unrecogn ized section and content) DATE CREATED AUTHOR 12/29/2022 [facility] DATE CREATED AUTHOR AUTHOR'S ORGANIZ ATION 10/28/2023 [facility] Care Teams (unrecognized sec tion and content) [employer]ber [employer]amer Helper Relationship Specialty Start Date End Date Daniel Lutz MD [address] [place] [id number] PCP - General Family Medicine 10/23/23 Natalie Medrano NP [address] [place] [phone] Nurse Practitioner Family Medicine 07/12/23 [employer] Helper Relationship Specialty Start Date End Date Daniel Lutz MD [address] [place] [id number] PCP - General Family Medicine 10/23/23 Natalie Medrano NP [address] [place] [phone] Nurse Practitioner Family Medicine 07/12/23 FOR RECORDS PERTAINING TO PATIENTS WHO ARE OR HAVE BEEN ENROLLED IN A CHEMICAL DEPENDENCY/SUBSTANCEABUSE PROGRAM, SOME INFORMATION MAY BE OMITTED. This clinical summary was aggregated from multiple sources. Caution should be exercised in using it in the provision of clinical care. This summary normalizes information from multiple sources, and as a consequence, information in this document may materially change the coding, format and clinical context of patient data. In addition, data may be omitted in some cases. CLINICAL DECISIONS SHOULD BE BASED ON THE PRIMARY CLINICAL RECORDS. [employer] [facility]. provides no warranty or guarantee of the accuracy or completeness of information in this document.
== END 2023-12-25 12:47 | disposition home or self-care (01) ==
LOC: MAMMO 12:46
PROVIDERS: PCP Nurse Practitioner; Visit Provider Nurse Practitioner
DX: Z12.31 Encounter for screening mammogram for malignant neoplasm of breast (principal); M81.0 Age-related osteoporosis without current pathological fracture; Z80.1 Family history of malignant neoplasm of trachea, bronchus and lung
CPT/HCPCS: 77063; 77067

== ENCOUNTER 2024-10-25 14:43 | Outpatient (OUT) | payer MEDICARE, OTHER, SELFPAY ==
--- OUTSIDE RECORDS SUMMARY | 2024-10-25 14:55 | XMS_ITS | CCD ---
Author Organization [facility] Inform ion Partnership [facility] Care Team Providers Care Geological Technician Name Role Phone Pedro Perez Primary Care Provider AICHHOLZ, MOTORCYCLE DESIGNER NATALIE Admitting Unavailable AICHHOLZ, MOTORCYCLE DESIGNER NATALIE Primary Care Unavailable AICHHOLZ, MOTORCYCLE DESIGNER NATALIE Consulting Unavailable AICHHOLZ, MOTORCYCLE DESIGNER NATALIE Attending Unavailable AICHHOLZ, MOTORCYCLE DESIGNER NATALIE Primary Care Unavailable AICHHOLZ, MOTORCYCLE DESIGNER NATALIE Attending Unavailable AICHHOLZ, MOTORCYCLE DESIGNER NATALIE Admitting Unavailable DR LEDA CARRILLO V Consulting Unavailable AICHHOLZ, MOTORCYCLE DESIGNER NATALIE Consulting Unavailable Aichholz PLASTIC MAKER, Natalie Unavailable Daniel Lutz MD Primary Care Provider AICHHOLZ, NATALIE Attending Unavailable AICHHOLZ, NATALIE Attending Unavailable Aichholz PLASTIC MAKER, Natalie Unavailable Allergies Allergy Classification Reported Allergen(s) Allergy Type Date of Onset Reaction(s) Facility Niacin (1 source) Niacin Drug Allergy 5 Itching [facility] (1 source) Niacin Drug Allergy 5 [facility] (6 sources) Niacin Drug Allergy 5 Itching, Unknown [facility] Work Phone: Medications Current Medications Medication Drug Class(es) Dates Sig (Normalized) Sig (Original) alendronic acid 35 mg oral tablet (8 sources) Bisphosphonate Start: 07-23-2024 End: 10-15-2024 take 1 tablet by mouth in the morning alendronate (Fosamax) 35 MG tablet Indications: Age-related osteoporosis without current pathological fracture (CMS/HCC) Take 1 tablet (35 mg) by mouth every 7 (seven) days Take in the morning with a full glass of water, on an empty stomach, and do not take anything else by mouth or lie down for the next 30 min. 12 tablet 1 07/23/2024 10/15/2024 Active take 1 tablet by mouth in the mo rn alendronate (Fosamax) 35 MG tablet Take 35 mg by mouth every 7 (seven) days Take in the morning with a full glass of water, on an empty stomach, and do not take anything else by mouth or lie down for the next 30 min. Active take 1 tablet by mouth every wee k alendronate (FOSAMAX) 35 mg tablet Take 35 mg by mouth once each week. 0 Active Comment on above: Take 35 mg by mouth once each week. aspirin 81 mg delayed release oral tablet (7 sources) Platelet Aggregation Inhibitor, Nonsteroidal Anti-inflammatory Drug take 1 tablet by mouth in the morning aspirin 81 MG EC tablet Take 81 mg by mouth in the morning. Active Comment on above: Take 81 mg by mouth once daily. cholecalciferol 0.05 mg oral tablet (7 sources) Vitamin D take 1 tablet by mouth in the morning cholecalciferol 50 MCG (2000 UT) tablet Take 2,000 Units by mouth in the morning. Active cholecalciferol (VITAMIN D3) 1,000 unit tab Take 6,000 Units by mouth once daily. 0 Active Comment on above: Take 6,000 Units by mouth once daily. dilTIAZem hydrochloride 30 mg oral tablet (8 sources) Calcium Channel Kateryna Start: 4 End: 4 take 1 tablet by mouth every eight hours dilTIAZem (Cardizem) 30 MG immediate release tablet Indications: Essential (primary) hypertension (CMS/HCC) Take 1 tablet (30 mg) by mouth every 8 (eight) hours 270 tablet 1 04/30/2024 Active take 1 tablet by mouth three [...] day 0 Active take 1 tablet by twice daily before mealtime glipiZIDE (GLUCOTROL) 10 mg tablet Take 10 mg by mouth twice daily before meals. 0 Active Comment on above: Take 10 mg by mouth twice daily before meals. 24 hr isosorbide mononitrate 30 mg extended release oral tablet (7 sources) Nitrate Vasodilator Start: 4 End: 4 take 1 tablet by mouth once daily isosorbide mononitrate ER (Imdur) 30 MG 24 hr tablet Indications: Essential (primary) hypertension (CMS/HCC) Take 1 tablet (30 mg) by mouth Daily 90 tablet 1 04/30/2024 Active lisinopril 20 mg oral tablet (7 sources) Angiotensin Converting Enzyme Inhibitor take 1 tablet by mouth in the morning lisinopril 20 MG tablet Take 20 mg by mouth in the morning. Active take 1 tablet by mouth once harman y lisinopril (ZESTRIL, PRINIVIL) 10 mg tablet Take 10 mg by mouth once daily. 0 Active Comment on above: Take 10 mg by mouth once daily. loratadine 10 mg oral capsule (7 sources) take 1 capsule by mouth once daily Loratadine 10 MG capsule Take 10 mg by mouth 1 (one) time each day Active take 1 tablet by mouth once harman y loratadine (CLARITIN) 10 mg tablet Take 10 mg by mouth once daily. 0 Active Comment on above: Take 10 mg by mouth once daily. magnesium oxide 600 mg / pyridoxine hydrochloride 25 mg oral tablet (6 sources) take 1 tablet by mouth in the morning magnesium oxide-pyridoxine (Beelith) 362-20 MG tablet Take 1 tablet by mouth in the morning. Active metFORMIN hydrochloride 500 mg oral tablet (8 sources) Biguanide Start: 04-30-20 24 End: 07-29-20 24 take 1 tablet by mouth at mealtime metFORMIN (Glucophage) 500 MG tablet Indications: Type 2 diabetes mellitus without complications (CMS/HCC) Take 1 tablet (500 mg) by mouth in the morning. Take with meals. 90 tablet 1 04/30/2024 Active Comment on above: Take 500 mg by mouth once daily. Multiple Vitamins-Minerals (CENTRUM SILVER PO) (6 sources) Multiple Vitamins-Minerals (CENTRUM SILVER PO) Take by mouth Active Multiple Vitamin s-Minerals (CENTRUM SILVER PO) Take by mouth 0 Active [place]-3 Fatty Acids (Fish Oi l) 1000 MG capsule delayed-release (6 sources) take 1 capsule by mouth in the morning [place]-3 Fatty Acids (Fish Oil) 1000 MG capsule delayed-release Take 1,000 mg by mouth in the morning and 1,000 mg before bedtime. Active take 1 capsule by mouth in the m orning [place]-3 Fatty Acids (Fish Oil) 1000 MG capsule delayed-release Take 1,000 mg by mouth in the morning and 1,000 mg before bedtime. 0 Active rosuvastatin calcium 20 mg oral tablet (7 sources) HMG-CoA Reductase Inhibitor Start: 04-30-2024 End: 07-29-2024 take 1 tablet by mouth at bedtime rosuvastatin (Crestor) 20 MG tablet Indications: Hyperlipidemia, unspecified (CMS/HCC) Take 1 tablet (20 mg) by mouth at bedtime 90 tablet 1 04/30/2024 Active timolol 2.5 mg/ml ophthalmic solution (3 sources) beta-Adrenergic Kateryna Start: 02-23-2024 take 1 drop(s) into the eye(s) in the morning timolol (Timoptic) 0.25 % ophthalmic solution instill 1 DROP IN BOTH EYES IN THE MORNING 02/23/2024 Active vitamin e 180 mg oral capsule (6 sources) take 1 capsule by mouth in the morning Vitamin E (E-400-Clear) 268 MG (400 UNIT) capsule Take 400 Units by mouth in the morning. Active Completed/Discontinued Medications Medication Drug Class(es) Dates [...] Episodic/Chronic Chronic obstructive pulmonary disease and bronchiectasis (8 sources) Chronic obstructive lung disease; Translations: [Chronic obstructive pulmonary disease, unspecified] Onset: 10-26-2023 10-26-2023 Chronic Diabetes mellitus without complication (10 sources) Type 2 diabetes mellitus without complications; Translations: [Type 2 diabetes mellitus] Onset: 08-28-2022 10-26-2023 Chronic Disorders of lipid metabolism (8 sources) Hyperlipidemia, unspecified; Translations: [Hyperlipidemia] Onset: 08-28-2022 10-26-2023 Chronic Esophageal disorders (8 sources) Gastroesophageal reflux disease; Translations: [Gastro-esophageal reflux disease without esophagitis] Onset: 10-26-2023 10-26-2023 Chronic Essential hypertension (13 sources) Essential (primary) hypertension; Translations: [Hypertensive disorder] Onset: 08-24-2022 Chronic Nutritional deficiencies (9 sources) Vitamin D deficiency, unspecified; Translations: [Vitamin D deficiency] Onset: 08-28-2022 10-26-2023 Chronic Osteoporosis (9 sources) Osteoporosis; Translations: [Age-related osteoporosis without current pathological fracture] Onset: 10-26-2023 10-26-2023 Chronic Other and ill-defined heart disease (6 sources) Heart disease; Translations: [Heart disease, unspecified] Onset: 10-26-2023 10-26-2023 Chronic Other ear and sense organ disorders (6 sources) Chronic right myringitis; Translations: [Chronic myringitis, right ear] Onset: 10-26-2023 10-26-2023 Chronic Other ear and sense organ disorders (6 sources) Mixed conductive and sensorineural hearing loss, bilateral; Translations: [Mixed conductive and sensorineural hearing loss, bilateral] Onset: 10-26-2023 10-26-2023 Chronic Residual codes; unclassified (1 source) Family history of malignant neoplasm of trachea, bronchus and lung; Translations: [FAM HX MALIG NEOPLSM TRACH BRON LNG] Onset: 12-29-2022 Episodic Past or Other Problems Problem Classification Problem Date Documented Date Episodic/Chronic Mood disorders (5 sources) Mood disorders Onset: 10-26-2023 10-26-2023 Nutritional deficiencies (6 sources) Vitamin deficiency; Translations: [Vitamin deficiency, unspecified] Onset: 10-26-2023 10-26-2023 Episodic Other screening for suspected conditions (not mental disorders or infectious disease) (19 sources) Encounter for screening mammogram for malignant neoplasm of breast; Translations: [Patient encounter status] Onset: 12-23-2022 Episodic Otitis media and related conditions (12 sources) Otitis media; Translations: [Unspecified nonsuppurative otitis media, bilateral] Onset: 10-26-2023 10-26-2023 Episodic Residual codes; unclassified (6 sources) Tobacco user; Translations: [Tobacco use] Onset: 10-26-2023 10-26-2023 Episodic Spondylosis; intervertebral disc disorders; other back problems (9 sources) Lumbar radiculopathy; Translations: [Radiculopathy, lumbar region] Onset: 10-26-2023 10-26-2023 Episodic Results Test Name Value Interpretation Reference Range Facility MG MAMM SCREEN 3D ARIAN CADon 12-23-2022 MG MAMM SCREEN 3D ARIAN CAD Patient: MARITZA ZAVALA Exam Date: 12/23/2022 : 1950 Gender:F Ordering : PHILIP MEDRANO [facility] Admission #: [id number] Family : Order #: [id number] CLICK HERE TO VIEW EXAM RADIOLOGY REPORT PROCEDURE: MAMMOGRAM SCREENING 3D BILATERAL CAD COMPARISON: MG MAMM SCREEN ARIAN W CAD, 11/08/2018. MG MAMM SCREEN 3D ARINA CAD, 01/13/2021. INDICATIONS: Screening mammography Calculator Name NCI Breast Cancer Risk Assessment Tool 5 Year Breast Cancer Risk 1.50% Lifetime Breast Cancer Risk 4.30% Personal Breast Cancer No Personal Ovarian Cancer No Treatments None Family Cancers Father with lung cancer at age 78. LOCATION: [facility] BREAST COMPOSITION: Heterogeneously dense,which may obscure [...] MD on 12/26/2022 at 10:03 Normal [facility] CBC AUTO DIFFon 08-24-2022 BASO # 0.1 103/ul Normal 0.0-0.1 [facility] Comment on above: Performed By: #### C BC #### [facility] [address] [place] [address] Dr. Steven Jones Basophils/100 WBC (Bld) 0.9 % Normal 0.2-2.0 [facility] Comment on above: Performed By: #### C BC #### [facility] [address] [place] [address] Dr. Steven Jones EO # 0.1 103/ul Normal 0.0-0.7 [facility] Comment on above: Performed By: #### C BC #### [facility] [address] [place] [address] Dr. Steven Jones Eosinophils/100 WBC (Bld) 0.9 % Normal 0.9-7.0 [facility] Comment on above: Performed By: #### C BC #### [facility] [address] [place] [address] Dr. Steven Jones Erythrocyte distribution width (RBC) [Ratio] 12.0 % Normal 11.0-15.0 [facility] Comment on above: Performed By: #### C BC #### [facility] [address] [place] [address] Dr. Steven Jones Hematocrit (Bld) [Volume fraction] 39.2 % Normal 36.0-48.0 [facility] Comment on above: Performed By: #### C BC #### [facility] [address] [place] [address] Dr. Steven Jones Hemoglobin (Bld) [Mass/Vol] 13.3 g/dL Normal 12.0-16.0 [facility] Comment on above: Performed By: #### C BC #### [facility] [address] [place] [address] Dr. Steven Jones IG # 0.02 10e3/ul Normal 0.00-0.03 [facility] Comment on above: Performed By: #### C BC #### [facility] [address] [place] [address] Dr. Steven Jones IG % 0.3 % Normal 0.0-0.5 [facility] Comment on above: Performed By: #### C BC #### [facility] [address] [place] [address] Dr. Steven Jones LYMPH # 2.1 103/ul Normal 1.2-3.8 [facility] Comment on above: Performed By: #### C BC #### [facility] [address] [place] [address] Dr. Steven Jones Lymphocytes/100 WBC (Bld) 25.8 % Normal 20.5-60.0 [facility] Comment on above: Performed By: #### C BC #### [facility] [address] [place] [address] Dr. Steven Jones MANUAL DIFF REQ NO Normal [facility] Comment on above: Performed By: #### C BC #### [facility] [address] [place] [address] Dr. Steven Jones MCH (RBC) [Entitic mass] 33.2 pg Normal 26.7-34.0 [facility] Comment on above: Performed By: #### C BC #### [facility] [address] [place] [address] Dr. Steven Jones MCHC (RBC) [Mass/Vol] 33.9 g/dL Normal 29.9-35.2 [facility] Comment on above: Performed By: #### C BC #### [facility] [address] [place] [address] Dr. Steven Jones MCV (RBC) [Entitic vol] 97.8 fL Normal 81.0-99.0 [facility] Comment on above: Performed By: #### C BC #### [facility] [address] [place] [address] Dr. Steven Jones MONO # 0.7 103/ul Normal 0.3-0.8 [facility] Comment on above: Performed By: #### C BC #### [facility] [address] [place] [address] Dr. Steven Jones Monocytes/100 WBC (Bld) 8.8 % Normal 1.7-12.0 [facility] Comment on above: Performed By: #### C BC #### [facility] [address] [place] [address] Dr. Steven Jones NEUT # 5.1 103/ul Normal 1.4-6.5 [facility] Comment on above: Performed By: #### C BC #### [facility] [address] [place] [address] Dr. Steven Jones Neutrophils/100 WBC (Bld) 63.3 % Normal 43.0-75.0 [facility] Comment on above: Performed By: #### C BC #### [facility] [address] [place] [address] Dr. Steven Jones Platelet mean volume (Bld) [Entitic vol] 9.6 fL Normal 9.5-13.5 [facility] Comment on above: Performed By: #### C BC #### [facility] [address] [place] [address] Dr. Steven Jones PLT 199 103/ul Normal 150-450 [facility] Comment on above: Performed By: #### C BC #### [facility] [address] [place] [address] Dr. Steven Jones RBC 4.01 106/ul Critically low 4.20-5.[address] [facility] Comment on above: Performed By: #### C BC #### [facility] [address] [place] [address] Dr. Steven Jones WBC 8.0 103/ul Normal 4.0-11.0 [facility] Comment on above: Performed By: #### C BC #### [facility] [address] [place] [address] Dr. Steven Jones GLYCOHEMOGLOBIN A1Con 2021 ADA RECOMMENDATION SEE BELOW Normal [facility] Comment on above: Result Comment: ADA RECOMMENDED LIMIT 4.0 - 6.0 ADA THERAPEUTIC TARGET < 7.0 ACTION SUGGESTED > 7.0 Performed By: #### A 1C #### [facility] [address] [address] [address] Steven Jones Glucose [Mass/Vol] 117 mg/dL Normal [facility] Comment on above: Performed By: #### A 1C #### [facility] [address] [address] [address] Steven Jones HbA1c (Bld) [Mass fraction] 5.7 % Normal 4.5-6.2 [facility] Comment on above: Performed By: #### A 1C #### [facility] [address] [place] [address] Dr. Steven Jones LIPID PROFILEon 08-24-2022 CHOL-HDL RATIO NORM SEE BELOW Normal [facility] Comment on above: Result Comment: 3.3 - 4.4 LOW RISK 4.4 - 7.1 AVERAGE RISK 7.1 - 11.0 MODERATE RISK >11.0 HIGH RISK Performed By: #### L IPID, CMP #### [facility] [address] [place] [address] Dr. Steven Jones Cholesterol [Mass/Vol] 110 mg/dL Normal <=200 [facility] Comment on above: Performed By: #### L IPID, CMP #### [facility] [address] [address] [address] Steven Jones Cholesterol in HDL [Mass/Vol] 64 mg/dL Critically high 40-60 [facility] Comment on above: Performed By: #### L IPID, CMP #### [facility] [address] [address] [address] Steven Jones Cholesterol in LDL [Mass/Vol] 21.2 mg/dL Normal [facility] Comment on above: Performed By: #### L IPID, CMP #### [facility] [address] [address] [address] Steven Jones Cholesterol.total/Cho lesterol in HDL [Mass ratio] 1.7 {ratio} Normal [facility] Comment on above: Performed By: #### L IPID, CMP #### [facility] [address] [address] [address] Steven Jones HDL NORMAL > or = 60 mg/dl - LO W CARDIOVASCULAR RISK <40 mg/dl - HIGH CARDIOVASCULAR RISK Normal [facility] Comment on above: Performed By: #### L IPID, CMP #### [facility] [address] [address] [address] Steven Jones LDL CALC NORMAL SEE BELOW Normal [facility] Comment on above: Result Comment: <100 mg/dl OPTIMAL 100 - 129 mg/dl NEAR OR ABOVE OPTIMAL 130 - 159 mg/dl BORDERLINE HIGH 160 - 189 mg/dl HIGH >190 mg/dl VERY HIGH Performed By: #### L IPID, CMP #### [facility] [address] [address] [address] Steven Jones Triglyceride [Mass/Vol] 124 mg/dL Normal <=150 [facility] Comment on above: Performed By: #### L IPID, CMP #### [facility] [address] [address] [address] Steven Jones VLDL CALC 24.8 mg/dL Normal [facility] Comment on above: Performed By: #### L IPID, CMP #### [facility] [address] [address] [address] Steven Jones MICROALBUMIN, RAND URon 08-11 mALB <1.3 Normal <=30.0 [facility] Comment on above: Performed By: #### M ALBR #### [facility] [address] [address] [address] Steven Jones PROF 14(COMP METB)on 022 Albumin [Mass/Vol] 3.3 g/dL Critically low 3.4-5.0 [facility] Comment on above: Performed By: #### L IPID, CMP #### [facility] [address] [address] [address] Steven Jones Albumin/Globulin [Mass ratio] 0.9 {ratio} Normal [facility] Comment on above: Performed By: #### L IPID, CMP #### [facility] [address] [address] [address] Steven Jones ALP [Catalytic activity/Vol] 79 U/L Normal 46-116 [facility] Comment on above: Performed By: #### L IPID, CMP #### [facility] [address] [address] [address] Steven Jones ALT [Catalytic activity/Vol] 20 U/L Normal 14-59 [facility] Comment on above: Performed By: #### L IPID, CMP #### [facility] [address] [address] [address] Steven Jones Anion gap [Moles/Vol] 9.3 mmol/L Normal [facility] Comment on above: Performed By: #### L IPID, CMP #### [facility] [address] [address] [address] Steven Jones AST [Catalytic activity/Vol] 18 U/L Normal 15-37 [facility] Comment on above: Performed By: #### L IPID, CMP #### [facility] [address] [address] [address] Steven Jones Bilirubin [Mass/Vol] 0.4 mg/dL Normal 0.2-1.0 [facility] Comment on above: Performed By: #### L IPID, CMP #### [facility] [address] [address] [address] Steven Jones Calcium [Mass/Vol] 8.5 mg/dL Normal 8.5-10.1 [facility] Comment on above: Performed By: #### L IPID, CMP #### [facility] [address] [address] [address] Steven Jones Chloride [Moles/Vol] 105 mmol/L Normal 98-107 [facility] Comment on above: Performed By: #### L IPID, CMP #### [facility] [address] [address] [address] Steven Jones CO2 [Moles/Vol] 29.7 mmol/L Normal 21.0-32.0 [facility] Comment on above: Performed By: #### L IPID, CMP #### [facility] [address] [address] [address] Steven Jones Creatinine [Mass/Vol] 0.54 mg/dL Critically low 0.55-1.02 [facility] Comment on above: Performed By: #### L IPID, CMP #### [facility] [address] [address] [address] Steven Jones EGFR-AF NIGERIEN >60 Normal >=60 [facility] Comment on above: Performed By: #### L IPID, CMP #### [facility] [address] [address] [address] Steven Jones EGFR-NON AF NIGERIEN >60 Normal >=60 [facility] Comment on above: Performed By: #### L IPID, CMP #### [facility] [address] [address] [address] Steven Jones Globulin (S) [Mass/Vol] 3.5 g/dL Normal [facility] Comment on above: Performed By: #### L IPID, CMP #### [facility] [address] [address] [address] Steven Jones Glucose [Mass/Vol] 86 mg/dL Normal 74-106 [facility] Comment on above: Performed By: #### L IPID, CMP #### [facility] [address] [address] [address] Steven Jones Potassium [Moles/Vol] 4.0 mmol/L Normal 3.5-5.1 [facility] Comment on above: Performed By: #### L IPID, CMP #### [facility] [address] [address] [address] Steven Jones Protein [Mass/Vol] 6.8 g/dL Normal 6.4-8.2 [facility] Comment on above: Performed By: #### L IPID, CMP #### [facility] [address] [address] [address] Steven Jones Sodium [Moles/Vol] 140 mmol/L Normal 136-145 [facility] Comment on above: Performed By: #### L IPID, CMP #### [facility] [address] [place] [address] Dr. Steven Jones Urea nitrogen [Mass/Vol] 9.0 mg/dL Normal 7.0-18.0 [facility] Comment on above: Performed By: #### L IPID, CMP #### [facility] [address] [place] [address] Dr. Steven Jones Urea nitrogen/Creatinine [Mass ratio] 16.7 mg/mg Normal [facility] Comment on above: Performed By: #### L IPID, CMP #### [facility] [address] [place] [address] Dr. Steven Jones UA RANDOM W/MICROSCOPICon BACTERIA NONE SEEN Normal NONE SEEN [facility] Comment on above: Performed By: #### U AMIC #### [facility] [address] [place] [address] Dr. Steven Jones Bilirubin Ql (U) Negative Normal NEGATIVE [facility] Comment on above: Performed By: #### U AMIC #### [facility] [facility] [address] [place] [address] Dr. Steven Jones CAST NONE SEEN Normal NONE SEEN [facility] Comment on above: Performed By: #### U AMIC #### [facility] [address] [place] [address] Dr. Steven Jones Clarity (U) CLEAR Normal CLEAR [facility] Comment on above: Performed By: #### U AMIC #### [facility] [address] [place] [address] Dr. Steven Jones Color (U) YELLOW Normal YELLOW [facility] Comment on above: Performed By: #### U AMIC #### [facility] [address] [place] [address] Dr. Steven Jones Crystals LM Nom (Urine sed) NONE SEEN Normal NONE SEEN [facility] Comment on above: Performed By: #### U AMIC #### [facility] [address] [place] [address] Dr. Steven Jones Epithelial cells LM Ql (Urine sed) RARE Normal NONE SEEN /RARE [facility] Comment on above: Performed By: #### U AMIC #### [facility] [address] [address] [address] Steven Jones Glucose Ql (U) Negative Normal NEGATIVE [facility] Comment on above: Performed By: #### U AMIC #### [facility] [address] [address] [address] Steven Jones Hemoglobin Ql (U) Negative Normal NEGATIVE [facility] Comment on above: Performed By: #### U AMIC #### [facility] [address] [address] [address] Steven Jones Ketones Ql (U) Negative Normal NEGATIVE [facility] Comment on above: Performed By: #### U AMIC #### [facility] [address] [place] [address] Dr. Steven Jones LEUKOCYTES Negative Normal NEGATIVE [facility] Comment on above: Performed By: #### U AMIC #### [facility] [address] [address] [address] Steven Jones MUCOUS TRACE Abnormal NONE SEEN [facility] Comment on above: Performed By: #### U AMIC #### [facility] [address] [address] [address] Steven Jones Nitrite Ql (U) Negative Normal NEGATIVE [facility] Comment on above: Performed By: #### U AMIC #### [facility] [address] [address] [address] Steven Jones pH (U) 7.0 [pH] Normal 5-9 [facility] Comment on above: Performed By: #### U AMIC #### [facility] [address] [address] [address] Steven Jones RBC 0-2 Normal 0-2 [facility] Comment on above: Performed By: #### U AMIC #### [facility] [address] [address] [address] Steven Jones SPEC GRAVITY 1.020 Normal 1.005-<=1.025 [facility] Comment on above: Performed By: #### U AMIC #### [facility] [address] [address] [address] Steven Jones UA PROTEIN Negative Normal NEGATIVE/ TRACE [facility] Comment on above: Performed By: #### U AMIC #### [facility] [address] [address] [address] Steven Jones Urobilinogen Qn (U) 1.0 {Oracio'U}/dL Normal 0.2 - 1. 0 [facility] Comment on above: Performed By: #### U AMIC #### [facility] [address] [address] [address] Steven Jones WBC 0-2 Abnormal NONE SEEN [facility] Comment on above: Performed By: #### U AMIC #### [facility] [address] [place] [address] Dr. Steven Jones VITAMIN D 25 OHon 08-24-2022 VIT D 25-OH 36.1 ng/mL Normal [facility] Comment on above: Performed By: #### V ITAD #### [facility] [address] [place] [address] Dr. Steven Jones VIT D RANGES SEE BELOW Normal [facility] Comment on above: Result Comment: <20 ng/mL Vit D deficient 20 - <30 ng/mL Vit D insufficient 30 - 100 ng/mL Vit D sufficient >100 ng/mL Potential Toxicity Performed By: #### V ITAD #### [facility] [address] [place] [address] Dr. Steven Jones Vital Signs Date Time Vital Sign Value Performing Clinician Faci lity 10-26-2023 17:31-0500 Body height 165.1 cm Natalie Medrano PLASTIC MAKER Work Phone: [facility] 10-26-2023 17:31-0500 Body mass index (BMI) [Ratio] 20.97 kg/m2 Natalie Medrano PLASTIC MAKER Work Phone: [facility] 10-26-2023 17:31-0500 Body temperature 97.11 [degF] Natalie Medrano PLASTIC MAKER Work Phone: [facility] 10-26-2023 17:31-0500 Body weight 57.15 kg Natalie Aichholz PLASTIC MAKER Work Phone: [facility] 10-26-2023 17:31-0500 Diastolic blood pressure 78 mm[Hg] Natalie Aichholz PLASTIC MAKER Work Phone: [facility] 10-26-2023 17:31-0500 Heart rate 87 /min Natalie Aichholz PLASTIC MAKER Work Phone: [facility] 10-26-2023 17:31-0500 Respiratory rate 18 /min Natalie Aichholz PLASTIC MAKER Work Phone: [facility] 10-26-2023 17:31-0500 SaO2% (BldA) [Mass fraction] 97 % Natalie Aichholz PLASTIC MAKER Work Phone: [facility] 10-26-2023 17:31-0500 Systolic blood pressure 124 mm[Hg] Natalie Aichholz PLASTIC MAKER Work Phone: [facility] Healthcare Encounters Encounter Date Encounter Type Care Provider Facility Start: 07-23-2024 End: 07-23-2024 Refill Natalie Aichholz PLASTIC MAKER Work Phone: [facility] Comment on above: Age-related osteopor osis without current pathological fracture ([facility]/HCC) Start: 04-30-2024 End: 04-30-2024 Refill Natalie Aichholz PLASTIC MAKER Work Phone: [facility] Comment on above: Hyperlipidemia, unsp ecified (CMS/HCC); Essential (primary) hypertension ([facility]) Type 2 diabetes ana itus without complications ([facility]) Start: 04-25-2024 End: 04-25-2024 ambulatory NATALIE AICHHOLZ Not Available Start: 10-26-2023 End: 10-26-2023 ambulatory NATALIE AICHHOLZ Not Available Start: 10-26-2023 Bamboo flowsheet Natalie Aichholz PLASTIC MAKER Work Phone: [facility] Start: 10-26-2023 Bamboo flowsheet Natalie Medrano PLASTIC MAKER Work Phone: [facility] Start: 10-26-2023 End: 10-26-2023 Patient encounter procedure Natalie Medrano PLASTIC MAKER Work Phone: [facility] Comment on above: Encounter for subseq uent annual wellness visit (AWV) in Medicare patient (Primary Dx); Screening mammogram for breast cancer; Primary hypertension ([facility]/HCC); Chronic obstructive pulmonary disease, unspecified COPD type ([facility]); Gastroesophageal reflux disease, unspecified whether esophagitis present; Vitamin D deficiency; Type 2 diabetes mellitus without complication, without long-term current use of insulin ([facility]); Colon cancer screening; Osteoporosis, unspecified osteoporosis type, unspecified pathological fracture presence ([facility]) Start: 12-23-2022 End: 12-24-2022 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:[facility] Start: 08-24-2022 End: 08-25-2022 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 LELIA Facility:[facility] Start: 11-22-2016 End: 11-22-2016 Telephone encounter Caleb Avila MD Work Phone: Ophthalmology Comment on above: Future Appointment Procedures Date Procedure Procedure Detail Performing Clinician Start: 12-25-2023 Mammography Natalie rojas PLASTIC MAKER Work Phone: Start: 12-23-2022 Mammography Natalie rojas PLASTIC MAKER Work Phone: Plan of Treatment Date Care Activity Detail Author Start: 02-09-2025 Glaucoma screening Diabetes: R etinopathy Screening [facility] Start: 12-24-2024 Screening for malign ant neoplasm of breast Mammogram [facility] Start: 10-30-2024 End: 10-30-2024 Patient encounter procedure 10/30/2024 4:30 PM EST Office Visit [facility] [address] [place] [phone] Natalie Medrano NP [address] [place] [phone] [facility] Start: 10-26-2024 Medicare Annual Wellness (AWV) Medicare Annual Wellness (AWV) [facility] Start: 10-06-2024 Urine screening for protein Diabetes: Urine Protein Screening [facility] Start: 05-12-2024 Influenza vaccination Influenza Vacc ine (#1) [facility] Start: 04-25-2024 End: 04-25-2024 Patient encounter procedure 04/25/2024 1:20 PM EDT Office Visit [facility] [address] [place] [phone] Natalie Medrano, NURIA [address] [place] [phone] [facility] Start: 04-11-2024 Pneumococcal Vaccine : 65+ Years (3 of 3 - PPSV23 or PCV20) Pneumococcal Vaccine: 65+ Years (3 of 3 - PPSV23 or PCV20) [facility] Comment on above: Postponed from 06/22 (Other Patient Reasons) Start: 01-05-2024 Hemoglobin A1c measurement Diabetes: Hemoglobin A1C [facility] Start: 12-25-2023 End: 12-24-2024 MG Breast - bilateral Screening Bilateral screening mammogram Imaging Routine Screening mammogram for breast cancer Expected: 12/25/2023 (Approximate), Expires: 12/24/2024 [facility] Work Phone: Comment on above: Expected: 12/25/2023 (Approximate), Expires: 12/24/2024 Start: 12-24-2023 Screening for malign ant neoplasm of breast Mammogram [facility] Start: 10-26-2023 End: 10-26-2023 Patient encounter procedure 10/26/2023 5:30 PM EST Office Visit [facility] [address] [place] [phone] Natalie Medrano, PLASTIC MAKER [address] [place] [phone] Screening mammogram for breast cancer (Primary Dx) [facility] Comment on above: Screening mammogram for breast cancer (Primary Dx) Start: 10-26-2023 End: 10-26-2024 DXA Skeletal system Views for bone density DEXA bone density Imaging Routine Osteoporosis, unspecified osteoporosis type, unspecified pathological fracture presence (CMS/HCC) Expected: 10/26/2023, Expires: 10/26/2024 [facility] Comment on above: Expected: 10/26/2023 , Expires: 10/26/2024 Start: 06-22-2021 Pneumococcal Vaccine : 65+ Years (3 of 3 - PPSV23 or PCV20) Pneumococcal Vaccine: 65+ Years (3 of 3 - PPSV23 or PCV20) [facility] Start: 05-12-2021 Influenza vaccination INFLUENZ A (Season Ended) [facility] Start: 2017 ADVANCE DIRECTIVE DISCUSSION ADVANCE DIRECTIVE DISCUSSION [facility] Start: 2017 BONE DENSITY BONE DENSITY [facility] Start: 2017 PNEUMOVAX AGE 65 AND OVER WITH 5YR LOOKBACK (#1) PNEUMOVAX AGE 65 AND OVER WITH 5YR LOOKBACK (#1) [facility] Start: 2002 Screening for malign ant neoplasm of colon [facility] Start: 2002 SHINGRIX VACCINE (1 of 2) SHINGRIX VACCINE (1 of 2) [facility] Start: 1997 DIABETES SCREEN DIABETES SCREEN [facility] Start: 1997 LIPID SCREEN LIPID SCREEN [facility] Start: 1992 Mammography MAMMOGRAM [facility] Start: 1971 Urine microalbumin profile DTAP,TDAP,TD (1 - Tdap) [facility] Start: 1970 HEPATITIS C SCREENING HEPATITIS C SC MERCEDEZNING [facility] Start: 1964 Adult depression screening assessment DEPRESSION SCREENING [facility] Start: 1962 Glaucoma screening Diabetes: R etinopathy Screening [facility] Start: 1952 Medicare Annual Wellness (AWV) Medicare Annual Wellness (AWV) [facility] Noninvasive colorect al cancer DNA and occult blood screening [Presence] in Stool Cologuard colon cancer screening Lab Routine Colon cancer screening Ordered: 10/26/2023 [facility] Comment on above: Ordered: 10/26/2023 Immunizations Immunization Date Immunization Notes Care Provider Sameer ronquillo 07-06-2023 Influenza, High-dose Seasonal, Quadrivalent, Preservative Free Natalie Aichholz PLASTIC MAKER Work Phone: [facility] 07-06-2023 influenza virus vacc ine, unspecified formulation Natalie Aichholz PLASTIC MAKER Work Phone: [facility] 06-01-2022 Influenza, High-dose Seasonal, Quadrivalent, Preservative Free Natalie Aichholz PLASTIC MAKER Work Phone: [facility] 07-29-2021 Seasonal, quadrivale nt, recombinant, injectable influenza vaccine, preservative free Natalie Aichholz PLASTIC MAKER Work Phone: [facility] 06-06-2020 influenza, high dose seasonal, preservative-free Natalie Aichholz PLASTIC MAKER Work Phone: [facility] 06-05-2020 influenza, seasonal, injectable Natalie Aichholz PLASTIC MAKER Work Phone: [facility] 05-18-2019 influenza, high dose seasonal, preservative-free Natalie Aichholz PLASTIC MAKER Work Phone: [facility] 05-18-2019 pneumococcal conjuga te vaccine, 13 valent Natalie Aichholz PLASTIC MAKER Work Phone: [facility] 06-12-2018 influenza, high dose seasonal, preservative-free Natalie Aichholz PLASTIC MAKER Work Phone: [facility] 07-06-2017 influenza, high dose seasonal, preservative-free Natalie Aichholz PLASTIC MAKER Work Phone: [facility] 06-28-2017 influenza, injectabl e, quadrivalent, preservative free Natalie Aichholz PLASTIC MAKER Work Phone: [facility] 06-22-2016 pneumococcal polysaccharide vaccine, 23 valent Natalie Aichholz PLASTIC MAKER Work Phone: [facility] 06-22-2016 zoster vaccine, live Natalie chholz PLASTIC MAKER Work Phone: [facility] 06-17-2015 influenza, seasonal, injectable, preservative free Natalie Medrano PLASTIC MAKER Work Phone: [facility] Healthcare 04-07-2014 pneumococcal polysaccharide vaccine, 23 valent Natalie Medrano PLASTIC MAKER Work Phone: [facility] 01-28-2014 zoster vaccine, live Natalie chow PLASTIC MAKER Work Phone: [facility] 07-24-2013 influenza, seasonal, injectable Natalie Medrano PLASTIC MAKER Work Phone: [facility] Healthcare Payers Date Payer Category Payer Private Health Insurance [facility] [id number] 2022 Unknown [facility] [id number] 2022- [address] [place] [address] [id number] 2017 Medicare [id number] 2015 Unknown [employer] [id number] 2015-Present PPO [id number] 1959 Medicare [id number] 1959 Unknown [id number] 1952 Unknown [id number] 1952 Unknown [id number] 1952 Unknown [id number] 1952 Unknown [id number] Social History Date Type Detail Facility Start: 07-31-2015 End: 10-26-2023 Tobacco smoking status OKIS Current every day smoker [facility] History of tobacco use Cigarette [facility] Start: 07-31-2015 End: 10-26-2023 Cigarettes smoked current (pack per day) - Reported [facility] Start: 07-31-2015 End: 10-26-2023 Alcohol intake Current drinker of alcohol (finding) [facility] Start: 1950 Sex Assigned At Not on file [facility] Start: 10-23-2023 End: 10-26-2023 Tobacco use panel [facility] Start: 10-23-2023 Alcohol Comment caffeine 2-3 c ups per day [facility] Start: 10-26-2023 Tobacco use and exposure Smoke less tobacco non-user [facility] Within the last year , have you been afraid of your partner or ex-partner? No [facility] Do you belong to any clubs or organizations such as sabianism groups, unions, fraternal or athletic groups, or [...] Medrano, NURIA - 10/26/2023 6:03 PM Jose Medrano NP - 10/26/2023 6:03 PM Jose Medrano, NURIA [...] prn Associated Problem(s): Type 2 diabetes mellitus (CMS/HCC) Check blood sugars daily, notify if <70 [...] Associated Problem(s): COPD (chronic obstructive pulmonary disease) ([facility]) No changes in meds Stomach bug last [...] being taken. She does not see a deposition reporter.Eye exam is current. Hypertension This is a [...] ear 10/26/2023 COPD (chronic obstructive pulmonary disease) ([facility]) 10/26/2023 ETD (Eustachian tube dysfunction), bilateral 10/26/2023 GERD (gastroesophageal reflux disease) 10/26/2023 Heart problem 10/26/2023 Hyperlipidemia ([facility]) 10/26/2023 Hypertension ([facility]) 10/26/2023 Lumbar back pain with radiculopathy affecting left lower extremity 10/26/2023 Mixed conductive and sensorineural hearing loss of both ears 10/26/2023 Osteoporosis ([facility]) 10/26/2023 Tobacco user 10/26/2023 Type 2 diabetes mellitus ([facility]) 10/26/2023 Vitamin D deficiency 10/26/2023 Vitamin deficiency [...] This Visit COPD (chronic obstructive pulmonary disease) ([facility]) No changes in meds Hypertension ([facility]) At goal GERD (gastroesophageal reflux disease) stable Osteoporosis ([facility]) Relevant Orders DEXA bone density Vitamin D deficiency Reviewed labs Type 2 diabetes mellitus ([facility]) Check blood sugars daily, notify if <70 [...] colon cancer screening documented in this encounter [facility] Healthcare Note 11-22-2016 Telephone Encounter - Sole [...] patient below. Jennifer Zavala Her mom's cell# [phone] Could you call her and coordinate a time for us to see her in the next 1-3 weeks? 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 Age-related osteoporosis without current pathological fracture (CMS/HCC) documented in this encounter [facility] Evaluation note Note Date & Type Note Facility Evaluation note Diagnosis Hyperlipidemia, unspecified (CMS/HCC) Essential (primary) hypertension (CMS/HCC) Unspecified essential hypertension documented in this encounter [facility] Evaluation note Note Date & Type Note Facility Evaluation note Diagnosis Type 2 diabetes mellitus without complications (CMS/HCC) documented in this encounter [facility] [...] or prosecute any alcohol or drug abuse patient.[facility] Reason for Visit (unrecogniz ed section and content) Reason Onset Date Comments Future Appointment 11/22/2016 Reason Comments Med Refill INFORMATION SOURCE (unrecogn ized section and content) DATE CREATED AUTHOR 12/29/2022 [facility] DATE CREATED AUTHOR AUTHOR'S ORGANIZ ATION 04/27/2024 [facility] EPIC Care Teams (unrecognized sec tion and content) Geological Technician Relationship Specialty Start Date End Date Daniel Lutz MD [address] [place] [phone] PCP - General Family Medicine 10/23/23 Natalie Medrano NP [address] [place] [address] Nurse Practitioner Family Medicine 07/12/23 Geological Technician Relationship Specialty Start Date End Date Daniel Lutz MD [address] [place] [address] PCP - General Family Medicine 10/23/23 Natalie Medrano NP [address] [place] [address] Nurse Practitioner Family Medicine 07/12/23 Geological Technician Relationship Specialty Start Date End Date Daniel Lutz MD [address] [place] [phone] PCP - General Family Medicine 10/23/23 Natalie Medrano NP [address] [place] [phone] Nurse Practitioner Family Medicine 07/12/23 Geological Technician Relationship Specialty Start Date End Date Daniel Lutz MD [address] [place] [phone] PCP - General Family Medicine 10/23/23 Natalie Medrano NP [address] [place] [phone] Nurse Practitioner Family Medicine 07/12/23 Geological Technician Relationship Specialty Start Date End Date Daniel Lutz MD [address] [place] [phone] PCP - General Family Medicine 10/23/23 Natalie Medrano NP [address] [place] [phone] Nurse Practitioner Family Medicine 07/12/23 FOR RECORDS [...] BE BASED ON THE PRIMARY CLINICAL RECORDS. [facility]. provides no warranty or guarantee of the accuracy or completeness of information in this document.
[2024-10-25 15:23] LABS: Estimated Average Glucose 126 mg/dL
== END 2024-10-25 14:44 | disposition home or self-care (01) ==
LOC: LAB 14:44
PROVIDERS: PCP Nurse Practitioner; Visit Provider Nurse Practitioner
DX: E11.9 Type 2 diabetes mellitus without complications (principal)
CPT/HCPCS: 36415; 83036

== ENCOUNTER 2024-11-28 07:28 | Outpatient (OUT) | payer MEDICARE, OTHER, SELFPAY ==
--- OUTSIDE RECORDS SUMMARY | 2024-11-28 07:33 | XMS_ITS | CCD ---
Author Organization [facility] Inform ion Partnership [facility] Care Team Providers Care Senior Statistical Programmer Name Role Phone Pedro Perez Primary Care Provider [phone] AICHHOLZ, DOCTOR OF NURSE ANESTHESIA PRACTICE NATALIE Admitting Unavailable AICHHOLZ, DOCTOR OF NURSE ANESTHESIA PRACTICE NATALIE Primary Care Unavailable AICHHOLZ, DOCTOR OF NURSE ANESTHESIA PRACTICE NATALIE Consulting Unavailable AICHHOLZ, DOCTOR OF NURSE ANESTHESIA PRACTICE NATALIE Attending Unavailable AICHHOLZ, DOCTOR OF NURSE ANESTHESIA PRACTICE NATALIE Primary Care Unavailable AICHHOLZ, DOCTOR OF NURSE ANESTHESIA PRACTICE NATALIE Attending Unavailable AICHHOLZ, DOCTOR OF NURSE ANESTHESIA PRACTICE NATALIE Admitting Unavailable DR LEDA CARRILLO V Consulting Unavailable AICHHOLZ, DOCTOR OF NURSE ANESTHESIA PRACTICE NATALIE Consulting Unavailable Aichholz LOAN SPECIALIST, Natalie Unavailable Daniel Lutz MD Primary Care Provider Aichholz LOAN SPECIALIST, Natalie Unavailable AICPARUL NATALIE Attending Unavailable AICHHOLZ, NATALIE Attending Unavailable Allergies Allergy Classification Reported Allergen(s) Allergy Type Date of Onset Reaction(s) Facility Niacin (1 source) Niacin Drug Allergy 5 Itching [facility] (1 source) Niacin Drug Allergy 5 [facility] (9 sources) Niacin Drug Allergy 5 Itching, Unknown [facility] Work Phone: Medications Current Medications Medication Drug Class(es) Dates Sig (Normalized) Sig (Original) alendronic acid 35 mg oral tablet (13 sources) Bisphosphonate Start: 07-23-2024 End: 01-22-2025 take 1 tablet by mouth in the [...] the next 30 min. 12 tablet 1 10/30/2024 01/22/2025 Active take 1 tablet by mouth in the mo rning alendronate (Fosamax) 35 MG tablet Take 35 [...] 35 mg by mouth once each week. amoxicillin 875 mg / clavulanate 125 mg oral tablet (2 sources) Penicillin-class Antibacterial Start: End: take 1 tablet by mouth in the morning amoxicillin-clavulanat e (Augmentin) 875-125 MG tablet Indications: Acute non-recurrent maxillary sinusitis Take 1 tablet (875 mg) by mouth in the morning and 1 tablet (875 mg) before bedtime. Do all this for 10 days. Take with food. 20 tablet 10/30/2024 11/09/2024 Active aspirin 81 mg delayed release oral tablet (10 sources) Platelet Aggregation Inhibitor, Nonsteroidal Anti-inflammatory Drug take 1 tablet by mouth in the morning aspirin 81 MG EC tablet Take 81 mg by mouth in the morning. Active Comment on above: Take 81 mg by mouth once daily. benzonatate 100 mg oral capsule (2 sources) Non-narcotic Antitussive Start: End: take 1 capsule by mouth every eight hours for cough benzonatate (Tessalon) 100 MG capsule Indications: Acute cough Take 1 capsule (100 mg) by mouth every 8 (eight) hours if needed for cough for up to 10 days Do not crush or chew. 30 capsule 10/30/2024 11/09/2024 Active cholecalciferol 0.05 mg oral tablet (10 sources) Vitamin D take 1 tablet by mouth in the morning cholecalciferol 50 MCG (2000 UT) tablet Take 2,000 Units by mouth in the morning. Active cholecalciferol (VITAMIN D3) 1,000 unit tab Take 6,000 Units by mouth once daily. 0 Active Comment on above: Take 6,000 Units by mouth once daily. dilTIAZem hydrochloride 30 mg oral tablet (13 sources) Calcium Channel Kateryna Start: 4 End: 5 take 1 tablet by mouth every eight hours dilTIAZem (Cardizem) 30 MG immediate release tablet Indications: Essential (primary) hypertension (CMS/HCC) Take 1 tablet (30 mg) by mouth every 8 (eight) hours 270 tablet 1 10/30/2024 01/28/2025 Active take 1 tablet by mouth three [...] mononitrate 30 mg extended release oral tablet (12 sources) Nitrate Vasodilator Start: 4 End: 5 take 1 tablet by mouth once daily isosorbide mononitrate ER (Imdur) 30 MG 24 hr tablet Indications: Essential (primary) hypertension (CMS/HCC) Take 1 tablet (30 mg) by mouth Daily 90 tablet 1 10/30/2024 01/28/2025 Active lisinopril 20 mg oral tablet (10 sources) Angiotensin Converting Enzyme Inhibitor take 1 [...] once daily. loratadine 10 mg oral capsule (10 sources) take 1 capsule by mouth once daily Loratadine 10 MG capsule Take 10 mg by mouth 1 (one) time each day Active take 1 tablet by mouth once harman y loratadine (CLARITIN) 10 mg tablet Take 10 mg by mouth once daily. 0 Active Comment on above: Take 10 mg by mouth once daily. magnesium oxide 400 mg oral tablet (2 sources) Start: 04-30-20 take 1 tablet by mouth once daily magnesium oxide (Mag-Ox) 400 (240 Mg) MG tablet Take 400 mg by mouth Daily 04/30/2024 Active metFORMIN hydrochloride 500 mg oral tablet (13 sources) Biguanide Start: 04-30-20 End: 01-29-20 take 1 tablet by mouth at mealtime metFORMIN (Glucophage) 500 MG tablet Indications: Type 2 diabetes mellitus without complications (CMS/HCC) Take 1 tablet (500 mg) by mouth in the morning. Take with meals. 90 tablet 1 10/30/2024 01/28/2025 Active Comment on above: Take 500 mg by mouth once daily. Multiple Vitamins-Minerals (CENTRUM SILVER PO) (9 sources) Multiple Vitamins-Minerals (CENTRUM SILVER PO) Take by mouth Active Multiple Vitamin s-Minerals (CENTRUM SILVER PO) Take by mouth 0 Active Tyronza-3 Fatty Acids (Fish Oi l) 1000 MG capsule delayed-release (9 sources) take 1 capsule by mouth in the morning Tyronza-3 Fatty Acids (Fish Oil) 1000 MG capsule delayed-release Take 1,000 mg by mouth in the morning and 1,000 mg before bedtime. Active take 1 capsule by mouth in the m orning Tyronza-3 Fatty Acids (Fish Oil) 1000 MG capsule delayed-release Take 1,000 mg by mouth in the morning and 1,000 mg before bedtime. 0 Active rosuvastatin calcium 20 mg oral tablet (12 sources) HMG-CoA Reductase Inhibitor Start: 04-30-2024 End: 01-28-2025 take 1 tablet by mouth at bedtime rosuvastatin (Crestor) 20 MG tablet Indications: Hyperlipidemia, unspecified (CMS/HCC) Take 1 tablet (20 mg) by mouth at bedtime 90 tablet 1 10/30/2024 01/28/2025 Active timolol 2.5 mg/ml ophthalmic solution (6 sources) beta-Adrenergic Kateryna Start: 02-23-2024 take 1 drop(s) into the eye(s) in the morning timolol (Timoptic) 0.25 % ophthalmic solution instill 1 DROP IN BOTH EYES IN THE MORNING 02/23/2024 Active vitamin e 180 mg oral capsule (9 sources) take 1 capsule by mouth in [...] Take 600 mg by mouth once daily. magnesium oxide 600 mg / pyridoxine hydrochloride 25 mg oral tablet (9 sources) End: 10-30-2024 take 1 tablet by mouth in the morning magnesium oxide-pyridoxine (Beelith) 362-20 MG tablet Take 1 tablet by mouth in the morning. 10/30/2024 Discontinued (Therapy completed) multivitamin tablet (1 source) take 1 tablet [...] Episodic/Chronic Chronic obstructive pulmonary disease and bronchiectasis (13 sources) Chronic obstructive lung disease; Translations: [Chronic obstructive pulmonary disease, unspecified] Onset: 10-26-2023 10-26-2023 Chronic Diabetes mellitus without complication (17 sources) Type 2 diabetes mellitus without complications; Translations: [Type 2 diabetes mellitus] Onset: 08-28-2022 10-26-2023 Chronic Disorders of lipid metabolism (15 sources) Hyperlipidemia, unspecified; Translations: [Hyperlipidemia] Onset: 08-28-2022 10-26-2023 Chronic Esophageal disorders (11 sources) Gastroesophageal reflux disease; Translations: [Gastro-esophageal reflux disease without esophagitis] Onset: 10-26-2023 10-26-2023 Chronic Essential hypertension (20 sources) Essential (primary) hypertension; Translations: [Hypertensive disorder] Onset: 08-24-2022 Chronic Nutritional deficiencies (14 sources) Vitamin D deficiency, unspecified; Translations: [Vitamin D deficiency] Onset: 08-28-2022 10-26-2023 Chronic Osteoporosis (16 sources) Osteoporosis; Translations: [Age-related osteoporosis without current pathological fracture] Onset: 10-26-2023 10-26-2023 Chronic Other and ill-defined heart disease (9 sources) Heart disease; Translations: [Heart disease, unspecified] Onset: 10-26-2023 10-26-2023 Chronic Other ear and sense organ disorders (9 sources) Chronic right myringitis; Translations: [Chronic myringitis, right ear] Onset: 10-26-2023 10-26-2023 Chronic Other ear and sense organ disorders (9 sources) Mixed conductive and sensorineural hearing loss, bilateral; Translations: [Mixed conductive and sensorineural hearing loss, bilateral] Onset: 10-26-2023 10-26-2023 Chronic Other lower respiratory disease (4 sources) Cough; Translations: [Acute cough] Onset: 10-30-2024 10-30-2024 Episodic Other screening for suspected conditions (not mental disorders or infectious disease) (20 sources) Encounter for screening mammogram for malignant neoplasm of breast; Translations: [Patient encounter status] Onset: 12-23-2022 Episodic Other upper respiratory infections (4 sources) Acute maxillary sinusitis; Translations: [Acute maxillary sinusitis, unspecified] Onset: 10-30-2024 10-30-2024 Episodic Residual codes; unclassified (1 source) Family history of malignant neoplasm of trachea, bronchus and lung; Translations: [FAM HX MALIG NEOPLSM TRACH BRON LNG] Onset: 12-29-2022 Episodic Residual codes; unclassified (9 sources) Tobacco user; Translations: [Tobacco use] Onset: 10-26-2023 10-26-2023 Episodic Substance-related disorders (6 sources) Tobacco dependence caused by cigarettes; Translations: [Nicotine dependence, cigarettes, uncomplicated] Onset: 10-26-2023 10-30-2024 Chronic Past or Other Problems Problem Classification Problem Date Documented Date Episodic/Chronic Mood disorders (8 sources) Mood disorders Onset: 10-26-2023 Resolved: 10-30-2024 10-26-2023 Nutritional deficiencies (9 sources) Vitamin deficiency; Translations: [Vitamin deficiency, unspecified] Onset: 10-26-2023 10-26-2023 Episodic Otitis media and related conditions (18 sources) Otitis media; Translations: [Unspecified nonsuppurative otitis media, bilateral] Onset: 10-26-2023 Resolved: 10-30-2024 10-26-2023 Episodic Spondylosis; intervertebral disc disorders; other back problems (15 sources) Lumbar radiculopathy; Translations: [Radiculopathy, lumbar region] Onset: 10-26-2023 10-26-2023 Episodic Unclassified (2 sources) Patient encounter status 10-30-2024 Results Test Name Value Interpretation Reference Range Facility [facility] HEMOGLOBIN A1Con 025 Glucose [Mass/Vol] 126 mg/dL [facility] HbA1c (Bld) [Mass fraction] 6 % 4.5 - 6.2 % [facility] Comment on above: ADA RECOMMENDED LIMI T 4.0 - 6.0 ADA THERAPEUTIC TARGET < 7.0 ACTION SUGGESTED > 7.0 [facility] MG MAMM SCREEN 3D ARIAN CADon 12-23-2022 MG MAMM SCREEN 3D ARIAN CAD Patient: MARITZA ZAVALA Exam Date: 12/23/2022 : 1950 Gender:F Ordering : [facility] Admission #: [id number] Family : Order #: [id number] CLICK HERE TO VIEW EXAM RADIOLOGY REPORT [...] lung cancer at age 80. LOCATION: [facility] BREAST COMPOSITION: Heterogeneously dense,which may obscure small [...] MD on 12/26/2022 at 10:03 Normal [facility] CBC AUTO DIFFon 08-24-2022 BASO # 0.1 103/ul Normal 0.0-0.1 [facility] Comment on above: Performed By: #### C BC #### [facility] [address] [place] [address] Dr. Steven Jones Basophils/100 WBC (Bld) 0.9 % Normal 0.2-2.0 [facility] Comment on above: Performed By: #### C BC #### [facility] [address] [place] [address] Dr. Steven Jones EO # 0.1 103/ul Normal 0.0-0.7 [facility] Comment on above: Performed By: #### C BC #### [facility] [address] [place] [address] Dr. Steven Jones Eosinophils/100 WBC (Bld) 0.9 % Normal 0.9-7.0 [facility] Comment on above: Performed By: #### C BC #### [facility] [address] [place] [address] Dr. Steven Jones Erythrocyte distribution width (RBC) [Ratio] 12.0 % Normal 11.0-15.0 [facility] Comment on above: Performed By: #### C BC #### [facility] [address] [place] [address] Dr. Steven Jones Hematocrit (Bld) [Volume fraction] 39.2 % Normal 36.0-48.0 [facility] Comment on above: Performed By: #### C BC #### [facility] [address] [place] [address] Dr. Steven Jones Hemoglobin (Bld) [Mass/Vol] 13.3 g/dL Normal 12.0-16.0 [facility] Comment on above: Performed By: #### C BC #### [facility] [address] [place] [address] Dr. Steven Jones IG # 0.02 10e3/ul Normal 0.00-0.03 [facility] Comment on above: Performed By: #### C BC #### [facility] [address] [place] [address] Dr. Steven Jones IG % 0.3 % Normal 0.0-0.5 [facility] Comment on above: Performed By: #### C BC #### [facility] [address] [place] [address] Dr. Steven Jones LYMPH # 2.1 103/ul Normal 1.2-3.8 [facility] Comment on above: Performed By: #### C BC #### [facility] [address] [place] [address] Dr. Steven Jones Lymphocytes/100 WBC (Bld) 25.8 % Normal 20.5-60.0 [facility] Comment on above: Performed By: #### C BC #### [facility] [address] [place] [address] Dr. Steven Jones MANUAL DIFF REQ NO Normal [facility] Comment on above: Performed By: #### C BC #### [facility] [address] [place] [address] Dr. Steven Jones MCH (RBC) [Entitic mass] 33.2 pg Normal 26.7-34.0 [facility] Comment on above: Performed By: #### C BC #### [facility] [address] [place] [address] Dr. Steven Jones MCHC (RBC) [Mass/Vol] 33.9 g/dL Normal 29.9-35.2 [facility] Comment on above: Performed By: #### C BC #### [facility] [address] [place] [address] Dr. Steven Jones MCV (RBC) [Entitic vol] 97.8 fL Normal 81.0-99.0 [facility] Comment on above: Performed By: #### C BC #### [facility] [address] [place] [address] Dr. Steven Jones MONO # 0.7 103/ul Normal 0.3-0.8 [facility] Comment on above: Performed By: #### C BC #### [facility] [address] [place] [address] Dr. Steven Jones Monocytes/100 WBC (Bld) 8.8 % Normal 1.7-12.0 [facility] Comment on above: Performed By: #### C BC #### [facility] [address] [place] [address] Dr. Steven Jones NEUT # 5.1 103/ul Normal 1.4-6.5 [facility] Comment on above: Performed By: #### C BC #### [facility] [address] [place] [address] Dr. Steven Jones Neutrophils/100 WBC (Bld) 63.3 % Normal 43.0-75.0 [facility] Comment on above: Performed By: #### C BC #### [facility] [address] [place] [address] Dr. Steven Jones Platelet mean volume (Bld) [Entitic vol] 9.6 fL Normal 9.5-13.5 [facility] Comment on above: Performed By: #### C BC #### [facility] [address] [place] [address] Dr. Steven Jones PLT 199 103/ul Normal 150-450 [facility] Comment on above: Performed By: #### C BC #### [facility] [address] [place] [address] Dr. Steven Jones RBC 4.01 106/ul Critically low 4.20-5.40 [facility] Comment on above: Performed By: #### C BC #### [facility] [address] [place] [address] Dr. Steven Jones WBC 8.0 103/ul Normal 4.0-11.0 [facility] Comment on above: Performed By: #### C BC #### [facility] [address] [address] [address] Steven Jones GLYCOHEMOGLOBIN A1Con 2021 ADA RECOMMENDATION SEE BELOW Normal [facility] Comment on above: Result Comment: ADA RECOMMENDED LIMIT 4.0 - 6.0 ADA THERAPEUTIC TARGET < 7.0 ACTION SUGGESTED > 7.0 Performed By: #### A 1C #### [facility] [address] [address] [address] Steven Jones Glucose [Mass/Vol] 117 mg/dL Normal [facility] Comment on above: Performed By: #### A 1C #### [facility] [address] [place] [address] Dr. Steven Jones HbA1c (Bld) [Mass fraction] 5.7 % Normal 4.5-6.2 [facility] Comment on above: Performed By: #### A 1C #### [facility] [address] [place] [address] Dr. Steven Jones LIPID PROFILEon 08-24-2022 CHOL-HDL RATIO NORM SEE BELOW Normal [facility] Comment on above: Result Comment: 3.3 - 4.4 LOW RISK 4.4 - 7.1 AVERAGE RISK 7.1 - 11.0 MODERATE RISK >11.0 HIGH RISK Performed By: #### L IPID, CMP #### [facility] [address] [place] [address] Dr. Steven Jones Cholesterol [Mass/Vol] 110 mg/dL Normal <=200 [facility] Comment on above: Performed By: #### L IPID, CMP #### [facility] [address] [address] [address] Steven Jones Cholesterol in HDL [Mass/Vol] 64 mg/dL Critically high 40-60 [facility] Comment on above: Performed By: #### L IPID, CMP #### [facility] [address] [place] [address] Dr. Steven Jones Cholesterol in LDL [Mass/Vol] 21.2 mg/dL Normal [facility] Comment on above: Performed By: #### L IPID, CMP #### [facility] [address] [address] [address] Steven Jones Cholesterol.total/Ch olesterol in HDL [Mass ratio] 1.7 {ratio} Normal [facility] Comment on above: Performed By: #### L IPID, CMP #### [facility] [address] [address] [address] Steven Jones HDL NORMAL > or = 60 mg/dl - LOW CARDIOVASCULAR RISK <40 mg/dl - HIGH CARDIOVASCULAR RISK Normal [facility] Comment on above: Performed By: #### L IPID, CMP #### [facility] [address] [address] [address] Steven Jones LDL CALC NORMAL SEE BELOW Normal [facility] Comment on above: Result Comment: <100 mg/dl OPTIMAL 100 - 129 mg/dl NEAR OR ABOVE OPTIMAL 130 - 159 mg/dl BORDERLINE HIGH 160 - 189 mg/dl HIGH >190 mg/dl VERY HIGH Performed By: #### L IPID, CMP #### [facility] [address] [place] [address] Dr. Steven Jones Triglyceride [Mass/Vol] 124 mg/dL Normal <=150 [facility] Comment on above: Performed By: #### L IPID, CMP #### [facility] [address] [place] [address] Dr. Steven Jones VLDL CALC 24.8 mg/dL Normal [facility] Comment on above: Performed By: #### L IPID, CMP #### [facility] [address] [place] [address] Dr. Steven Jones MICROALBUMIN, RAND URon 08-11 mALB <1.3 Normal <=30.0 [facility] Comment on above: Performed By: #### M ALBR #### [facility] [address] [place] [address] Dr. Steven Jones PROF 14(COMP METB)on 022 Albumin [Mass/Vol] 3.3 g/dL Critically low 3.4-5.0 [facility] Comment on above: Performed By: #### L IPID, CMP #### [facility] [address] [address] [address] Steven Jones Albumin/Globulin [Mass ratio] 0.9 {ratio} Normal [facility] Comment on above: Performed By: #### L IPID, CMP #### [facility] [address] [address] [address] Steven Jones ALP [Catalytic activity/Vol] 79 U/L Normal 46-116 [facility] Comment on above: Performed By: #### L IPID, CMP #### [facility] [address] [address] [address] Steven Jones ALT [Catalytic activity/Vol] 20 U/L Normal 14-59 [facility] Comment on above: Performed By: #### L IPID, CMP #### [facility] [address] [address] [address] Steven Jones Anion gap [Moles/Vol] 9.3 mmol/L Normal [facility] Comment on above: Performed By: #### L IPID, CMP #### [facility] [address] [address] [address] Steven Jones AST [Catalytic activity/Vol] 18 U/L Normal 15-37 [facility] Comment on above: Performed By: #### L IPID, CMP #### [facility] [address] [address] [address] Steven Jones Bilirubin [Mass/Vol] 0.4 mg/dL Normal 0.2-1.0 [facility] Comment on above: Performed By: #### L IPID, CMP #### [facility] [address] [address] [address] Steven Jones Calcium [Mass/Vol] 8.5 mg/dL Normal 8.5-10.1 [facility] Comment on above: Performed By: #### L IPID, CMP #### [facility] [address] [address] [address] Steven Jones Chloride [Moles/Vol] 105 mmol/L Normal 98-107 [facility] Comment on above: Performed By: #### L IPID, CMP #### [facility] [address] [address] [address] Steven Jones CO2 [Moles/Vol] 29.7 mmol/L Normal 21.0-32.0 [facility] Comment on above: Performed By: #### L IPID, CMP #### [facility] [address] [address] [address] Steven Jones Creatinine [Mass/Vol] 0.54 mg/dL Critically low 0.55-1.02 [facility] Comment on above: Performed By: #### L IPID, CMP #### [facility] [address] [address] [address] Steven Jones EGFR-AF AFGHAN >60 Normal >=60 [facility] Comment on above: Performed By: #### L IPID, CMP #### [facility] [address] [address] [address] Steven Jones EGFR-NON AF AFGHAN >60 Normal >=60 [facility] Comment on above: Performed By: #### L IPID, CMP #### [facility] [address] [address] [address] Steven Jones Globulin (S) [Mass/Vol] 3.5 g/dL Normal [facility] Comment on above: Performed By: #### L IPID, CMP #### [facility] [address] [address] [address] Steven Jones Glucose [Mass/Vol] 86 mg/dL Normal 74-106 [facility] Comment on above: Performed By: #### L IPID, CMP #### [facility] [address] [address] [address] Steven Jones Potassium [Moles/Vol] 4.0 mmol/L Normal 3.5-5.1 [facility] Comment on above: Performed By: #### L IPID, CMP #### [facility] [address] [address] [address] Steven Jones Protein [Mass/Vol] 6.8 g/dL Normal 6.4-8.2 [facility] Comment on above: Performed By: #### L IPID, CMP #### [facility] [address] [address] [address] Steven Jones Sodium [Moles/Vol] 140 mmol/L Normal 136-145 [facility] Comment on above: Performed By: #### L IPID, CMP #### [facility] [address] [address] [address] Steven Jones Urea nitrogen [Mass/Vol] 9.0 mg/dL Normal 7.0-18.0 [facility] Comment on above: Performed By: #### L IPID, CMP #### [facility] [address] [address] [address] Steven Jones Urea nitrogen/Creatinine [Mass ratio] 16.7 mg/mg Normal [facility] Comment on above: Performed By: #### L IPID, CMP #### [facility] [address] [place] [address] Dr. Steven Jones UA RANDOM W/MICROSCOPICon BACTERIA NONE SEEN Normal NONE SEEN [facility] Comment on above: Performed By: #### U AMIC #### [facility] [address] [place] [address] Dr. Steven Jones Bilirubin Ql (U) Negative Normal NEGATIVE [facility] Comment on above: Performed By: #### U AMIC #### [facility] [address] [place] [address] Dr. Steven Jones CAST NONE SEEN Normal NONE SEEN [facility] Comment on above: Performed By: #### U AMIC #### [facility] [address] [place] [address] Dr. Steven Jones Clarity (U) CLEAR Normal CLEAR [facility] Comment on above: Performed By: #### U AMIC #### [facility] [address] [place] [address] Dr. Steven Jones Color (U) YELLOW Normal YELLOW [facility] Comment on above: Performed By: #### U AMIC #### [facility] [address] [place] [address] Dr. Steven Jones Crystals LM Nom (Urine sed) NONE SEEN Normal NONE SEEN [facility] Comment on above: Performed By: #### U AMIC #### [facility] [address] [address] [address] Steven Jones Epithelial cells LM Ql (Urine sed) RARE Normal NONE SEEN /RARE [facility] Comment on above: Performed By: #### U AMIC #### [facility] [address] [address] [address] Steven Jones Glucose Ql (U) Negative Normal NEGATIVE The [facility] Comment on above: Performed By: #### U AMIC #### [facility] [address] [address] [address] Steven Jones Hemoglobin Ql (U) Negative Normal NEGATIVE The [facility] Comment on above: Performed By: #### U AMIC #### [facility] [address] [place] [address] Dr. Steven Jones Ketones Ql (U) Negative Normal NEGATIVE The [facility] Comment on above: Performed By: #### U AMIC #### [facility] [address] [address] [address] Steven Jnoes LEUKOCYTES Negative Normal NEGATIVE [facility] Comment on above: Performed By: #### U AMIC #### [facility] [address] [address] [address] Steven Jones MUCOUS TRACE Abnormal NONE SEEN [facility] Comment on above: Performed By: #### U AMIC #### [facility] [address] [address] [address] Steven Jones Nitrite Ql (U) Negative Normal NEGATIVE The [facility] Comment on above: Performed By: #### U AMIC #### [facility] [address] [address] [address] Steven Jones pH (U) 7.0 [pH] Normal 5-9 [facility] Comment on above: Performed By: #### U AMIC #### [facility] [address] [place] [address] Dr. Steven Jones RBC 0-2 Normal 0-2 [facility] Comment on above: Performed By: #### U AMIC #### [facility] [address] [address] [address] Steven Jones SPEC GRAVITY 1.020 Normal 1.005-<=1.025 The [facility] Comment on above: Performed By: #### U AMIC #### [facility] [address] [address] [address] Steven Jones UA PROTEIN Negative Normal NEGATIVE/ TRACE [facility] Comment on above: Performed By: #### U AMIC #### [facility] [address] [address] [address] Steven Jones Urobilinogen Qn (U) 1.0 {Oracio'U}/dL Normal 0.2 - 1. 0 [facility] Comment on above: Performed By: #### U AMIC #### [facility] [address] [place] [address] Dr. Steven Jones WBC 0-2 Abnormal NONE SEEN [facility] Comment on above: Performed By: #### U AMIC #### [facility] [address] [place] [address] Dr. Steven Jones VITAMIN D 25 OHon 08-24-2022 VIT D 25-OH 36.1 ng/mL Normal [facility] Comment on above: Performed By: #### V ITAD #### [facility] [address] [place] [address] Dr. Steven Jones VIT D RANGES SEE BELOW Normal [facility] Comment on above: Result Comment: <20 ng/mL Vit D deficient 20 - <30 ng/mL Vit D insufficient 30 - 100 ng/mL Vit D sufficient >100 ng/mL Potential Toxicity Performed By: #### V ITAD #### [facility] [address] [place] [address] Dr. Steven Jones Vital Signs Date Time Vital Sign Value Performing Clinician Faci lity 10-30-2024 16:52-0500 Body mass index (BMI) [Ratio] 20.34 kg/m2 Natalie Medrano NP Work Phone: [facility] 10-30-2024 16:52-0500 Body temperature 98.2 [degF] Natalie Aichholz LOAN SPECIALIST Work Phone: [facility] 10-30-2024 16:52-0500 Body weight 55.43 kg Natalie Aichholz LOAN SPECIALIST Work Phone: [facility] 10-30-2024 16:52-0500 Diastolic blood pressure 70 mm[Hg] Natalie Aichholz LOAN SPECIALIST Work Phone: [facility] 10-30-2024 16:52-0500 Heart rate 116 /min Natalie Aichholz LOAN SPECIALIST Work Phone: [facility] 10-30-2024 16:52-0500 Respiratory rate 18 /min Natalie Aichholz LOAN SPECIALIST Work Phone: [facility] 10-30-2024 16:52-0500 SaO2% (BldA) [Mass fraction] 94 % Natalie Aichholz LOAN SPECIALIST Work Phone: [facility] 10-30-2024 16:52-0500 Systolic blood pressure 102 mm[Hg] Natalie Aichholz LOAN SPECIALIST Work Phone: [facility] 10-26-2023 17:31-0500 Body height 165.1 cm Natalie Aichholz LOAN SPECIALIST Work Phone: [facility] 10-26-2023 17:31-0500 Body mass index (BMI) [Ratio] 20.97 kg/m2 Natalie Aichholz LOAN SPECIALIST Work Phone: [facility] 10-26-2023 17:31-0500 Body temperature 97.11 [degF] Natalie Vipinhholz LOAN SPECIALIST Work Phone: [facility] 10-26-2023 17:31-0500 Body weight 57.15 kg Natalie Aichholz LOAN SPECIALIST Work Phone: [facility] 10-26-2023 17:31-0500 Diastolic blood pressure 78 mm[Hg] Natalie Aichholz LOAN SPECIALIST Work Phone: [facility] 10-26-2023 17:31-0500 Heart rate 87 /min Natalie Hanyz LOAN SPECIALIST Work Phone: [facility] 10-26-2023 17:31-0500 Respiratory rate 18 /min Natalie Medrano LOAN SPECIALIST Work Phone: [facility] 10-26-2023 17:31-0500 SaO2% (BldA) [Mass fraction] 97 % Natalie Maganarfanklyndamian LOAN SPECIALIST Work Phone: [facility] 10-26-2023 17:31-0500 Systolic blood pressure 124 mm[Hg] Natalie Medrano LOAN SPECIALIST Work Phone: [facility] Healthcare Encounters Encounter Date Encounter Type Care Provider Facility Start: 10-30-2024 End: 10-30-2024 ambulatory NATALIE MAGANAFRANKLYNDamian Not Available Start: 10-30-2024 End: 10-30-2024 Patient encounter procedure Natalie Maganajose elias LOAN SPECIALIST Work Phone: [facility] Comment on above: Encounter for screen ing for lung cancer (Primary Dx); Chronic obstructive pulmonary disease, unspecified ([facility]/HCC); Primary hypertension ([facility]/HCC); Osteoporosis, unspecified osteoporosis type, unspecified pathological fracture presence ([facility]); Type 2 diabetes mellitus without complication, without long-term current use of insulin ([facility]); Vitamin D deficiency; Mixed hyperlipidemia ([facility]/HCC); Screening mammogram for breast cancer; Tobacco user; Age-related osteoporosis without current pathological fracture ([facility]/HCC); Essential (primary) hypertension ([facility]/HCC); Type 2 diabetes mellitus without complications ([facility]/HCC); Hyperlipidemia, unspecified ([facility]); Encounter for subsequent annual wellness visit (AWV) in Medicare patient; Acute non-recurrent maxillary sinusitis; Acute cough; Cigarette nicotine dependence without complication Start: 10-25-2024 End: 10-25-2024 Clinisync Result Encounter Natalie Maganajose elias LOAN SPECIALIST Work Phone: [facility] External Department Unsolicited Start: 10-25-2024 End: 10-25-2024 Clinisync Result Encounter Natalie Maganajose elias LOAN SPECIALIST Work Phone: [facility] External Department Unsolicited Start: 07-23-2024 End: 07-23-2024 Refill Natalie Aichholz LOAN SPECIALIST Work Phone: [facility] Comment on above: Age-related osteopor osis without current pathological fracture ([facility]/HCC) Start: 04-30-2024 End: 04-30-2024 Refill Natalie Aichholz LOAN SPECIALIST Work Phone: [facility] Comment on above: Hyperlipidemia, unsp ecified ([facility]/HCC); Essential (primary) hypertension ([facility]/HCC) Type 2 diabetes ana itus without complications ([facility]/HCC) Start: 04-25-2024 End: 04-25-2024 ambulatory NATALIE AICHHOLZ Not Available Start: 10-26-2023 Bamboo flowsheet Natalie Aichholz LOAN SPECIALIST Work Phone: [facility] Start: 10-26-2023 Bamboo flowsheet Natalie Aichholz LOAN SPECIALIST Work Phone: [facility] Start: 10-26-2023 End: 10-26-2023 Patient encounter procedure Natalie Aichholz LOAN SPECIALIST Work Phone: [facility] Comment on above: Encounter for subseq uent annual wellness visit (AWV) in Medicare patient (Primary Dx); Screening mammogram for breast cancer; Primary hypertension ([facility]); Chronic obstructive pulmonary disease, unspecified COPD type ([facility]); Gastroesophageal reflux disease, unspecified whether esophagitis present; Vitamin D deficiency; Type 2 diabetes mellitus without complication, without long-term current use of insulin ([facility]); Colon cancer screening; Osteoporosis, unspecified osteoporosis type, unspecified pathological fracture presence ([facility]) Start: 12-23-2022 End: 12-24-2022 ambulatory DOCTOR OF NURSE ANESTHESIA PRACTICE NATALIE AICHHOLZ Facility:[facility] Start: 08-24-2022 End: 08-25-2022 ambulatory DOCTOR OF NURSE ANESTHESIA PRACTICE NATALIE AICHHOLZ Facility:[facility] Start: 11-22-2016 End: 11-22-2016 Telephone encounter Caleb Avila MD Work Phone: [facility] Comment on above: Future Appointment Procedures Date Procedure Procedure Detail Performing Clinician Start: 10-25-2024 MLR HEMOGLOBIN A1C Natalie Aichholdamian LOAN SPECIALIST Work Phone: Start: 12-25-2023 Mammography Natalie rojas LOAN SPECIALIST Work Phone: Start: 12-23-2022 Mammography Natalie rojas LOAN SPECIALIST Work Phone: Plan of Treatment Date Care Activity Detail Author Start: 08-28-2026 Glaucoma screening Diabetes: R etinopathy Screening [facility] Start: 11-03-2025 End: 11-03-2025 Patient encounter procedure 11/03/2025 4:15 PM EST Office Visit [facility] [address] [place] [phone] Natalie Medrano, NURIA [address] [place] [phone] [facility] Start: 10-30-2025 Medicare Annual Wellness (AWV) Medicare Annual Wellness (AWV) [facility] Start: 04-29-2025 End: 04-29-2025 Patient encounter procedure 04/29/2025 3:40 PM EDT Office Visit [facility] [address] [place] [phone] Natalie Medrano, LOAN SPECIALIST [address] [place] [phone] [facility] Start: 02-09-2025 Glaucoma screening Diabetes: R etinopathy Screening [facility] Start: 12-30-2024 End: 10-30-2025 DXA Skeletal system Views for bone density DEXA bone density Imaging Routine Osteoporosis, unspecified osteoporosis type, unspecified pathological fracture presence ([facility]) Expected: 12/30/2024 (Approximate), Expires: 10/30/2025 [facility] Comment on above: Expected: 12/30/2024 (Approximate), Expires: 10/30/2025 Start: 12-30-2024 End: 12-28-2025 MG Breast - bilateral Screening Bilateral screening mammogram Imaging Routine Screening mammogram for breast cancer Expected: 12/30/2024 (Approximate), Expires: 12/28/2025 [facility] Work Phone: Comment on above: Expected: 12/30/2024 (Approximate), Expires: 12/28/2025 Start: 12-24-2024 Screening for malign ant neoplasm of breast Mammogram [facility] Start: 10-30-2024 End: 10-30-2024 Patient encounter procedure 10/30/2024 4:30 PM EST Office Visit [facility] [address] [place] [phone] Natalie Medrano, LOAN SPECIALIST [address] [place] [phone] [facility] Start: 10-30-2024 End: 10-30-2025 25-hydroxyvitamin D3 [Mass/volume] in Serum or Plasma Vitamin D 25 hydroxy Lab Routine Vitamin D deficiency Expected: 10/30/2024 (Approximate), Expires: 10/30/2025 [facility] Comment on above: Expected: 10/30/2024 (Approximate), Expires: 10/30/2025 Start: 10-30-2024 End: 10-30-2025 CBC W Auto Differential panel - Blood CBC and differential Lab Routine Chronic obstructive pulmonary disease, unspecified (CMS/HCC) Tobacco user Expected: 10/30/2024 (Approximate), Expires: 10/30/2025 [facility] Comment on above: Expected: 10/30/2024 (Approximate), Expires: 10/30/2025 Start: 10-30-2024 End: 10-30-2025 Comprehensive metabolic 2000 panel - Serum or Plasma Comprehensive metabolic panel Lab Routine Primary hypertension (CMS/HCC) Osteoporosis, unspecified osteoporosis type, unspecified pathological fracture presence (CMS/HCC) Type 2 diabetes mellitus without complication, without long-term current use of insulin (CMS/HCC) Vitamin D deficiency Mixed hyperlipidemia (CMS/HCC) Expected: 10/30/2024 (Approximate), Expires: 10/30/2025 [facility] Comment on above: Expected: 10/30/2024 (Approximate), Expires: 10/30/2025 Start: 10-30-2024 End: 10-30-2025 CT Chest for screening WO contrast CT lung screening low dose Imaging Routine Encounter for screening for lung cancer Cigarette nicotine dependence without complication Expected: 10/30/2024 (Approximate), Expires: 10/30/2025 [facility] Comment on above: Expected: 10/30/2024 (Approximate), Expires: 10/30/2025 Start: 10-30-2024 End: 10-30-2025 Lipid 1996 panel - Serum or Plasma Lipid panel Lab Routine Mixed hyperlipidemia (CMS/HCC) Expected: 10/30/2024 (Approximate), Expires: 10/30/2025 [facility] Comment on above: Expected: 10/30/2024 (Approximate), Expires: 10/30/2025 Start: 10-30-2024 End: 10-30-2025 Microalbumin/Creatinine panel in random Urine Microalbumin / creatinine, urine ratio Lab Routine Primary hypertension (CMS/[facility]) Type 2 diabetes mellitus without complication, without long-term current use of insulin (CMS/HCC) Expected: 10/30/2024 (Approximate), Expires: 10/30/2025 [facility] Comment on above: Expected: 10/30/2024 (Approximate), Expires: 10/30/2025 Start: 10-30-2024 End: 10-30-2025 Urinalysis complete panel - Urine Urinalysis with reflex microscopic (clean catch) Lab Routine Primary hypertension (CMS/HCC) Type 2 diabetes mellitus without complication, without long-term current use of insulin ([facility]/HCC) Tobacco user Expected: 10/30/2024 (Approximate), Expires: 10/30/2025 [facility] Comment on above: Expected: 10/30/2024 (Approximate), Expires: 10/30/2025 Start: 10-26-2024 Medicare Annual Wellness (AWV) Medicare Annual Wellness (AWV) [facility] Start: 10-06-2024 Urine screening for protein Diabetes: Urine Protein Screening [facility] Start: 05-12-2024 Influenza vaccination Influenza Vacc ine (#1) [facility] Start: 04-25-2024 End: 04-25-2024 Patient encounter procedure 04/25/2024 1:20 PM EDT Office Visit [facility] [address] [place] [phone] Natalie Medrano, NURIA [address] [place] [phone] [facility] Start: 04-11-2024 Pneumococcal Vaccine : 65+ Years (3 of 3 - PPSV23 or PCV20) Pneumococcal Vaccine: 65+ Years (3 of 3 - PPSV23 or PCV20) [facility] Comment on above: Postponed from 06/22 (Other Patient Reasons) Start: 01-05-2024 Hemoglobin A1c measurement Diabetes: Hemoglobin A1C [facility] Start: 12-25-2023 End: 12-24-2024 MG Breast - bilateral Screening Bilateral screening mammogram Imaging Routine Screening mammogram for breast cancer Expected: 12/25/2023 (Approximate), Expires: 12/24/2024 [facility] Work Phone: Comment on above: Expected: 12/25/2023 (Approximate), Expires: 12/24/2024 Start: 12-24-2023 Screening for malign ant neoplasm of breast Mammogram [facility] Start: 10-26-2023 End: 10-26-2023 Patient encounter procedure 10/26/2023 5:30 PM EST Office Visit [facility] [address] [place] [phone] Natalie Medrano, NURIA [address] [place] [phone] Screening mammogram for breast cancer (Primary Dx) [facility] Comment on above: Screening mammogram for breast cancer (Primary Dx) Start: 10-26-2023 End: 10-26-2024 DXA Skeletal system Views for bone density DEXA bone density Imaging Routine Osteoporosis, unspecified osteoporosis type, unspecified pathological fracture presence (CMS/HCC) Expected: 10/26/2023, Expires: 10/26/2024 [facility] Comment on above: Expected: 10/26/2023 , Expires: 10/26/2024 Start: 06-22-2021 Pneumococcal Vaccine : 65+ Years (3 of 3 - PPSV23 or PCV20) Pneumococcal Vaccine: 65+ Years (3 of 3 - PPSV23 or PCV20) [facility] Start: 05-12-2021 Influenza vaccination INFLUENZA (Sea son Ended) [facility] Start: 2017 ADVANCE DIRECTIVE DISCUSSION ADVANCE DIRECTIVE DISCUSSION [facility] Start: 2017 BONE DENSITY BONE DENSITY [facility] Start: 2017 PNEUMOVAX AGE 65 AND OVER WITH 5YR LOOKBACK (#1) PNEUMOVAX AGE 65 AND OVER WITH 5YR LOOKBACK (#1) [facility] Start: 2002 Screening for malign ant neoplasm of colon [facility] Start: 2002 SHINGRIX VACCINE (1 of 2) SHINGRIX VACCINE (1 of 2) [facility] Start: 1997 DIABETES SCREEN DIABETES SCREEN [facility] Start: 1997 LIPID SCREEN LIPID SCREEN [facility] Start: 1992 Mammography MAMMOGRAM [facility] Start: 1971 Urine microalbumin profile DTAP,TDAP,TD (1 - Tdap) [facility] Start: 1970 HEPATITIS C SCREENING HEPATITIS C SC REENING [facility] Start: 1964 Adult depression screening assessment DEPRESSION SCREENING [facility] Start: 1962 Glaucoma screening Diabetes: R etinopathy Screening [facility] Start: 1952 Medicare Annual Wellness (AWV) Medicare Annual Wellness (AWV) [facility] Noninvasive colorect al cancer DNA and occult blood screening [Presence] in Stool Cologuard colon cancer screening Lab Routine Colon cancer screening Ordered: 10/26/2023 [facility] Comment on above: Ordered: 10/26/2023 Immunizations Immunization Date Immunization Notes Care Provider Sameer [email or web address] 07-06-2023 Influenza, High-dose Seasonal, Quadrivalent, Preservative Free Natalie Aicdellaholz LOAN SPECIALIST Work Phone: [facility] 07-06-2023 influenza virus vacc ine, unspecified formulation Natalie Aichholz LOAN SPECIALIST Work Phone: [facility] 06-01-2022 Influenza, High-dose Seasonal, Quadrivalent, Preservative Free Natalie Aichholz LOAN SPECIALIST Work Phone: [facility] 07-29-2021 Seasonal, quadrivale nt, recombinant, injectable influenza vaccine, preservative free Natalie Aichholz LOAN SPECIALIST Work Phone: [facility] 06-06-2020 influenza, high dose seasonal, preservative-free Natalie Aichholz LOAN SPECIALIST Work Phone: [facility] 06-05-2020 influenza, seasonal, injectable Natalie Aichholz LOAN SPECIALIST Work Phone: [facility] 05-18-2019 influenza, high dose seasonal, preservative-free Natalie Aichholz LOAN SPECIALIST Work Phone: [facility] 05-18-2019 pneumococcal conjuga te vaccine, 13 valent Natalie Aichholz LOAN SPECIALIST Work Phone: [facility] 06-12-2018 influenza, high dose seasonal, preservative-free Natalie Aichholz LOAN SPECIALIST Work Phone: [facility] 07-06-2017 influenza, high dose seasonal, preservative-free Natalie Aichholz LOAN SPECIALIST Work Phone: [facility] 06-28-2017 influenza, injectabl e, quadrivalent, preservative free Natalie Aichholz LOAN SPECIALIST Work Phone: [facility] 06-22-2016 pneumococcal polysaccharide vaccine, 23 valent Natalie Aichholz LOAN SPECIALIST Work Phone: [facility] 06-22-2016 zoster vaccine, live Natalie chholz LOAN SPECIALIST Work Phone: [facility] 06-17-2015 influenza, seasonal, injectable, preservative free Natalie Aichholz LOAN SPECIALIST Work Phone: [facility] 04-07-2014 pneumococcal polysaccharide vaccine, 23 valent Natalie Aichholz LOAN SPECIALIST Work Phone: [facility] 01-28-2014 zoster vaccine, live Natalie chholz LOAN SPECIALIST Work Phone: [facility] 07-24-2013 influenza, seasonal, injectable Natalie Aichholz LOAN SPECIALIST Work Phone: [facility] Payers Date Payer Category Payer Private Health Insurance [facility] [id number] 2022 [place] [facility] [id number] 2022-Present [address] [facility] [place] [address] [id number] 2017 Medicare [id number] 2015 Unknown [employer] [id number] 2015-Present PPO [id number] 1959 Medicare [id number] 1959 Unknown [id number] 1952 Unknown [id number] 1952 Unknown [id number] 1952 Unknown [id number] 1952 Unknown [id number] Social History Date Type Detail Facility Start: 07-31-2015 End: 10-26-2023 Tobacco smoking status NHIS Current every day smoker [facility] History of tobacco use Cigarette Smoker [facility] Start: 07-31-2015 End: 10-26-2023 Cigarettes smoked current (pack per day) - Reported [facility] Start: 07-31-2015 End: 10-30-2024 Alcohol intake Current drinker of alcohol (finding) [facility] Start: 1950 Sex Assigned At Not on file [facility] Start: 10-23-2023 End: 10-26-2023 Tobacco use panel [facility] Start: 10-23-2023 Alcohol Comment caffeine 2-3 c ups per day [facility] Start: 10-26-2023 Tobacco use and exposure Smoke less tobacco non-user [facility] Within the last year , have you been afraid of your partner or ex-partner? No [facility] Do you belong to any clubs or organizations such as restorationist groups, [employer], [employer] or athletic groups, or school groups? Yes [...] [facility] History of Present illness Narrative 10-30-2024 Natalie Medrano NP - 10/30/2024 5:48 PM Jose Medrano NP - 10/30/2024 5:31 PM Jose Medrano NP - 10/30/2024 4:30 PM [facility] - 10/30/2024 4:30 PM EST Note Date & Type Note Facility 10-30-2024 History of Presen t illness Narrative Associated Problem(s): Encounter for screening for lung cancer Patient meets requirements for low dose CT scan for lung cancer screening: age 55-80, patient is a current smoker or has quit in the last 15 years. Smoking history is > or equal to 30 pack-year. If needed the patient is able or willing to receive treatment. The patient is not currently exhibiting any s/s of lung cancer. We have discussed the benefits as well as harms of screening, follow up testing if needed, false positive rates. We have also discussed that this type of CT scan has less radiation exposure than a traditional lung CT scan. We have also discussed that it is important to follow with annual screening for this. The patient has also been counseled on the importance of smoking cessation. Associated Problem(s): Encounter for subsequent annual wellness visit (AWV) in Medicare patient Reviewed Ht/Wt/BMI Recommend eye exam yearly Recommend dental exams twice a year Exercises is recommended most days of the week (appropriate as chronic conditions allow) Follow up yearly and prn Associated Problem(s): Cigarette nicotine dependence without complication >>ASSESSMENT AND PLAN FOR TOBACCO USER WRITTEN ON 10/30/2024 5:46 PM BY NATALIE MEDRANO NP The patient has been advised of the risks of continued smoking: stroke, NM, all forms of cancer, lung disease, and . Options for quitting smoking include: cold turkey, hypnosis, acupuncture, nicotine replacement meds (gum, lozenges, and patches), Buproprion, and Varenicline. Patient meets requirements for low dose CT scan for lung cancer screening: age 55-80, patient is a current smoker or has quit in the last 15 years. Smoking history is > or equal to 30 pack-year. If needed the patient is able or willing to receive treatment. The patient is not currently exhibiting any s/s of lung cancer. We have discussed the benefits as well as harms of screening, follow up testing if needed, false positive rates. We have also discussed that this type of CT scan has less radiation exposure than a traditional lung CT scan. We have also discussed that it is important to follow with annual screening for this. The patient has also been counseled on the importance of smoking cessation. Agrees to CT scan Pt has had a bad cold since last . Symptoms include: headache, right ear plugged, sinus pressure, vertigo, itchy watery eye, fatigue, runny/stuffy nose, chest congestion, wet cough, coughing light yellowing mucus, tightness in the chest, and drainage. No diarrhea, no nausea, no vomiting, no temperature. Images from the original note were not included. Maritza Zavala is a 74 y.o. female presents with chief complaint of No chief complaint on file. HPI: Diet: balanced Activity: no Mental Health Concerns: none Falls in the last year: none Still driving: yes Do you pay your bills:yes Any hearing problems: none Any Vision problems: glasses , every 6 months Any Hospitalizations in the last year: none Specialist: Aleta eye doctor, HCPOA/Living Will: yes Concerns: Pt has had a bad cold since last . Symptoms include: headache, right ear plugged, sinus pressure, vertigo, itchy watery eye, fatigue, runny/stuffy nose, chest congestion, wet cough, coughing light yellowing mucus, tightness in the chest, and drainage. No diarrhea, no nausea, no vomiting, no temperature. Diabetes She has type 2 diabetes mellitus. Her disease course has been stable. There are no hypoglycemic associated symptoms. Pertinent negatives for hypoglycemia include no dizziness, headaches, nervousness/anxiousness, seizures or tremors. Pertinent negatives for diabetes include no chest pain, no foot paresthesias, no polydipsia, no polyphagia, no polyuria, no visual change and no weight loss. There are no hypoglycemic complications. Symptoms are stable. Diabetic complications include heart disease. Risk factors for coronary artery disease include diabetes mellitus, dyslipidemia, hypertension, sedentary lifestyle and tobacco exposure. Current diabetic treatment includes oral agent (monotherapy). Her overall blood glucose range is 90-110 mg/dl. An JENN inhibitor/angiotensin II receptor kateryna is being taken. She does not see a rn clinical review.Eye exam is current. Hypertension This is a chronic problem. The problem is unchanged. The problem is controlled. Pertinent negatives include no chest pain, headaches, neck pain, palpitations, peripheral edema or shortness of breath. There are no associated agents to hypertension. Risk factors for coronary artery disease include diabetes mellitus, dyslipidemia, post-menopausal state and smoking/tobacco exposure. Past treatments include calcium channel blockers and JENN inhibitors. The current treatment provides significant improvement. There are no compliance problems. There is no history of kidney disease. SUBJECTIVE: MEDICATIONS: Current Outpatient Medications Medication Instructions alendronate (FOSAMAX) 35 mg, Oral, Every 7 days, Take in the morning with a full glass of water, on an empty stomach, and do not take anything else by mouth or lie down for the next 30 min. amoxicillin-clavulanate (Augmentin) 875-125 MG tablet 875 mg, Oral, 2 times daily, Take with food aspirin 81 mg, Daily benzonatate (TESSALON) 100 mg, Oral, Every 8 hours PRN, Do not crush or chew. cholecalciferol (VITAMIN D-3) 2,000 Units, Daily dilTIAZem (CARDIZEM) 30 mg, Oral, Every 8 hours Fish Oil 1,000 mg, 2 times daily isosorbide mononitrate ER (IMDUR) 30 mg, Oral, Daily lisinopril 20 mg, Daily Loratadine 10 mg, Daily magnesium oxide (MAG-OX) 400 mg, Daily metFORMIN (GLUCOPHAGE) 500 mg, Oral, Daily with breakfast Multiple Vitamins-Minerals (CENTRUM SILVER PO) Take by mouth rosuvastatin (CRESTOR) 20 mg, Oral, Nightly timolol (Timoptic) 0.25 % ophthalmic solution instill 1 DROP IN BOTH EYES IN THE MORNING Vitamin E (E-400-CLEAR) 400 Units, Daily ALLERGIES: Allergies Allergen Reactions Niacin Itching and Unknown REVIEW OF SYMPTOMS: Review of Systems Constitutional: Negative for appetite change, chills, fever and weight loss. HENT: Positive for congestion, ear pain and sinus pressure. Negative for sore throat. Eyes: Negative for pain, discharge, redness and visual disturbance. Respiratory: Positive for cough and wheezing. Negative for shortness of breath. Cardiovascular: Negative for chest pain, palpitations and leg swelling. Gastrointestinal: Negative for abdominal pain, blood in stool, constipation, diarrhea, nausea and vomiting. Genitourinary: Negative for difficulty urinating, dysuria and frequency. Musculoskeletal: Negative for arthralgias, back pain, joint swelling, myalgias and neck pain. Skin: Negative for rash and wound. Neurological: [...] ear 10/26/2023 COPD (chronic obstructive pulmonary disease) ([facility]) 10/26/2023 ETD (Eustachian tube dysfunction), bilateral 10/26/2023 GERD (gastroesophageal reflux disease) 10/26/2023 Heart problem 10/26/2023 Hyperlipidemia ([facility]) 10/26/2023 Hypertension ([facility]) 10/26/2023 Lumbar back pain with radiculopathy affecting left lower extremity 10/26/2023 Mixed conductive and sensorineural hearing loss of both ears 10/26/2023 Osteoporosis ([facility]) 10/26/2023 Tobacco user 10/26/2023 Type 2 diabetes mellitus ([facility]) 10/26/2023 Vitamin D deficiency 10/26/2023 Vitamin deficiency 10/26/2023 Past Surgical History: Procedure Laterality Date APPENDECTOMY 2007 with r/o 18 intestines BREAST LUMPECTOMY Right COLECTOMY Right MYRINGOTOMY W/ TUBES 08/25/2020 Salome JARVIS OTHER SURGICAL HISTORY 06/16/2015 bilat. T-tubes TONSILLECTOMY TOTAL ABDOMINAL HYSTERECTOMY 1993 family history includes Cancer in her paternal grandfather; Crohn's disease in her mother; Diabetes in her brother and paternal grandmother; Heart disease in her brother, maternal grandmother, and mother; fire in her maternal grandfather; high triglycerides in her mother. OBJECTIVE: Visit Vitals BP 102/70 (BP Location: Left arm, Patient Position: Sitting, BP Cuff Size: Adult) Pulse (!) 116 Temp 98.2 F (Temporal) Resp 18 Wt 122 lb 3.2 oz SpO2 94% BMI 20.34 kg/m Smoking Status Every Day BSA 1.59 m Physical Exam Vitals and nursing note reviewed. Constitutional: General: She is not in acute distress. Appearance: Normal appearance. She is not ill-appearing. HENT: Head: Normocephalic and atraumatic. Right Ear: Ear canal and external ear normal. Left Ear: Ear canal and external ear normal. Ears: Comments: Fluid bilat TM's Nose: Congestion present. No rhinorrhea. Mouth/Throat: Mouth: Mucous membranes are moist. Pharynx: No oropharyngeal exudate or posterior oropharyngeal erythema. Eyes: Extraocular Movements: Extraocular movements intact. Conjunctiva/sclera: Conjunctivae normal. Neck: Vascular: No carotid bruit. Cardiovascular: Rate and Rhythm: Regular rhythm. Tachycardia present. Pulses: Normal pulses. Heart sounds: Normal heart sounds. Comments: Pt took an allergy decongestant prior to coming today, likely side effect Rhythm is regular Pulmonary: Effort: Pulmonary effort is normal. Breath sounds: Normal breath sounds. No wheezing, rhonchi or rales. Comments: Moist hacky cough Abdominal: General: Bowel sounds are normal. There is no distension. Palpations: Abdomen is soft. There is no mass. Tenderness: There is no abdominal tenderness. Musculoskeletal: General: Normal range of motion. Cervical back: Normal range of motion and neck supple. Right lower leg: No edema. Left lower leg: No edema. Lymphadenopathy: Cervical: No cervical adenopathy. Skin: General: Skin is warm and dry. Capillary Refill: Capillary refill takes 2 to 3 seconds. Findings: No rash. Neurological: General: No focal deficit present. Mental Status: She is alert and oriented to person, place, and time. Psychiatric: Mood and Affect: Mood normal. Behavior: Behavior normal. Thought Content: Thought content normal. Judgment: Judgment normal. ASSESSMENT AND PLAN: Follow up in about 6 months (around 04/29/2025) for Recheck. Problem List Items Addressed This Visit Chronic obstructive pulmonary disease, unspecified (CMS/HCC) Current meds: none Relevant Orders CBC and differential Hypertension (CMS/HCC) - Primary Please check blood pressure daily and record DASH diet Limit caffeine Take medication as directed Contact office if chest pain, pressure, dizziness, shortness of breath, swelling legs Recommend slow position changes Current meds: cardizem, imdur, lisinopril, Relevant Orders Comprehensive metabolic panel Microalbumin / creatinine, urine ratio Urinalysis with reflex microscopic (clean catch) Osteoporosis ([facility]) Calcium and Vit D Order DEXA Relevant Medications alendronate (Fosamax) 35 MG tablet Other Relevant Orders DEXA bone density Comprehensive metabolic panel Vitamin D deficiency Takes supplement Check labs yearly and prn Relevant Orders Comprehensive metabolic panel Vitamin D 25 hydroxy Type 2 diabetes mellitus ([facility]) Check blood sugars daily, notify if <70 [...] diet low in carbohydrates, and simple sugars. Current meds: asa, jenn, metformin, statin A1c 6% on 10/25/24 Relevant Orders Comprehensive metabolic panel Microalbumin / creatinine, urine ratio Urinalysis with reflex microscopic (clean catch) Hyperlipidemia ([facility]) On statin therapy Check labs yearly and prn dose changes Relevant Orders Comprehensive metabolic panel Lipid panel Screening mammogram for breast cancer Relevant Orders Bilateral screening mammogram Encounter for subsequent annual wellness visit (AWV) in Medicare patient Reviewed Ht/Wt/BMI Recommend eye exam yearly Recommend dental exams twice a year Exercises is recommended most days of the week (appropriate as chronic conditions allow) Follow up yearly and prn Acute non-recurrent maxillary sinusitis Relevant Medications amoxicillin-clavulanate (Augmentin) 875-125 MG tablet Acute cough Relevant Medications benzonatate (Tessalon) 100 MG capsule Encounter for screening for lung cancer Patient meets requirements for low dose CT scan for lung cancer screening: age 55-80, patient is a current smoker or has quit in the last 15 years. Smoking history is > or equal to 30 pack-year. If needed the patient is able or willing to receive treatment. The patient is not currently exhibiting any s/s of lung cancer. We have discussed the benefits as well as harms of screening, follow up testing if needed, false positive rates. We have also discussed that this type of CT scan has less radiation exposure than a traditional lung CT scan. We have also discussed that it is important to follow with annual screening for this. The patient has also been counseled on the importance of smoking cessation. Relevant Orders CT lung screening low dose Cigarette nicotine dependence without complication >>ASSESSMENT AND PLAN FOR TOBACCO USER WRITTEN ON 10/30/2024 5:46 PM BY NATALIE MEDRANO NP The patient has been advised of the risks of continued smoking: stroke, NM, all forms of cancer, lung disease, and . Options for quitting smoking include: cold turkey, hypnosis, acupuncture, nicotine replacement meds (gum, lozenges, and patches), Buproprion, and Varenicline. Patient meets requirements for low dose CT scan for lung cancer screening: age 55-80, patient is a current smoker or has quit in the last 15 years. Smoking history is > or equal to 30 pack-year. If needed the patient is able or willing to receive treatment. The patient is not currently exhibiting any s/s of lung cancer. We have discussed the benefits as well as harms of screening, follow up testing if needed, false positive rates. We have also discussed that this type of CT scan has less radiation exposure than a traditional lung CT scan. We have also discussed that it is important to follow with annual screening for this. The patient has also been counseled on the importance of smoking cessation. Agrees to CT scan Relevant Orders CT lung screening low dose Other Visit Diagnoses Tobacco user Relevant Orders CBC and differential Urinalysis with reflex microscopic (clean catch) Essential (primary) hypertension (CMS/HCC) Relevant Medications dilTIAZem (Cardizem) 30 MG immediate release tablet isosorbide mononitrate ER (Imdur) 30 MG 24 hr tablet Type 2 diabetes mellitus without complications (CMS/HCC) Relevant Medications metFORMIN (Glucophage) 500 MG tablet Other Relevant Orders Comprehensive metabolic panel Microalbumin / creatinine, urine ratio Urinalysis with reflex microscopic (clean catch) Hyperlipidemia, unspecified (CMS/HCC) Relevant Medications rosuvastatin (Crestor) 20 MG tablet Other Relevant Orders Comprehensive metabolic panel Lipid panel Associated Problem(s): Tobacco user (Deleted) The patient has been advised of the risks of continued smoking: stroke, NM, all forms of cancer, lung disease, and . Options for quitting smoking include: cold turkey, hypnosis, acupuncture, nicotine replacement meds (gum, lozenges, and patches), Buproprion, and Varenicline. Patient meets requirements for low dose CT scan for lung cancer screening: age 55-80, patient is a current smoker or has quit in the last 15 years. Smoking history is > or equal to 30 pack-year. If needed the patient is able or willing to receive treatment. The patient is not currently exhibiting any s/s of lung cancer. We have discussed the benefits as well as harms of screening, follow up testing if needed, false positive rates. We have also discussed that this type of CT scan has less radiation exposure than a traditional lung CT scan. We have also discussed that it is important to follow with annual screening for this. The patient has also been counseled on the importance of smoking cessation. Agrees to CT scan Associated Problem(s): Hyperlipidemia (CMS/HCC) On statin therapy Check labs yearly and prn dose changes Associated Problem(s): Vitamin D deficiency Takes supplement Check labs yearly and prn Associated Problem(s): Type 2 [...] diet low in carbohydrates, and simple sugars. Current meds: asa, jenn, metformin, statin A1c 6% on 10/25/24 Associated Problem(s): Osteoporosis (CMS/HCC) Calcium and Vit D Order DEXA Associated Problem(s): Hypertension (CMS/HCC) Please check blood pressure daily and record DASH diet Limit caffeine Take medication as directed Contact office if chest pain, pressure, dizziness, shortness of breath, swelling legs Recommend slow position changes Current meds: cardizem, imdur, lisinopril, Associated Problem(s): Chronic obstructive pulmonary disease, unspecified (CMS/HCC) Current meds: none documented in this encounter [facility] Instructions 10-30-2024 Patient Instructions Note Date & Type Note Facility 10-30-2024 Instructions Natalie Medrano NP - 10/30/2024 4:30 PM EST Take atb twice a day for 10 days with food, also take tessalon 100mg every 8 hours as needed for cough Get labs Needs mammogram and bone density in December 2024-I will fax to [facility] documented in this encounter [facility] History of Present illness Narrative 10-26-2023 Natalie Medrano NP - 10/26/2023 6:04 PM Jose Medrano NP - 10/26/2023 6:03 PM Jose Medrano NP - 10/26/2023 6:03 PM Jose Medrano NP - 10/26/2023 6:02 PM EST Note Date [...] being taken. She does not see a rn clinical review.Eye exam is current. Hypertension This is a [...] ear 10/26/2023 COPD (chronic obstructive pulmonary disease) ([facility]) 10/26/2023 ETD (Eustachian tube dysfunction), bilateral 10/26/2023 GERD (gastroesophageal reflux disease) 10/26/2023 Heart problem 10/26/2023 Hyperlipidemia ([facility]) 10/26/2023 Hypertension ([facility]) 10/26/2023 Lumbar back pain with radiculopathy affecting left lower extremity 10/26/2023 Mixed conductive and sensorineural hearing loss of both ears 10/26/2023 Osteoporosis ([facility]) 10/26/2023 Tobacco user 10/26/2023 Type 2 diabetes mellitus ([facility]) 10/26/2023 Vitamin D deficiency 10/26/2023 Vitamin deficiency 10/26/2023 Past Surgical History: Procedure Laterality Date APPENDECTOMY 2007 with r/o 18 intestines BREAST LUMPECTOMY Right COLECTOMY Right MYRINGOTOMY W/ TUBES 08/25/2020 BMT, Salome OTHER SURGICAL HISTORY 06/16/2015 bilat. T-tubes TONSILLECTOMY [...] This Visit COPD (chronic obstructive pulmonary disease) ([facility]) No changes in meds Hypertension ([facility]) At goal GERD (gastroesophageal reflux disease) stable Osteoporosis ([facility]) Relevant Orders DEXA bone density Vitamin D deficiency Reviewed labs Type 2 diabetes mellitus ([facility]) Check blood sugars daily, notify if <70 [...] colon cancer screening documented in this encounter [facility] Healthcare Note 11-22-2016 Telephone Encounter - Sole [...] patient below. Jennifer Zavala Her mom's cell# [phone] Could you call her and coordinate a time for us to see her in the next 1-3 weeks? documented in this encounter [facility] Evaluation note Note Date & Type [...] fracture presence (CMS/HCC) documented in this encounter [facility] Healthcare Evaluation note Note Date & Type [...] pathological fracture (CMS/HCC) documented in this encounter [facility] Evaluation note Note Date & Type Note Facility Evaluation note Diagnosis Hyperlipidemia, unspecified (CMS/HCC) Essential (primary) hypertension (CMS/HCC) Unspecified essential hypertension documented in this encounter [facility] Evaluation note Note Date & Type Note Facility Evaluation note Diagnosis Type 2 diabetes mellitus without complications (CMS/HCC) documented in this encounter [facility] Evaluation note Note Date & Type [...] complication, without long-term current use of insulin ([facility]) Colon cancer screening Special screening for malignant neoplasms, colon Osteoporosis, unspecified osteoporosis type, unspecified pathological fracture presence ([facility]) Primary hypertension ([facility])- Primary Unspecified essential hypertension Type 2 diabetes mellitus without complication, without long-term current use of insulin ([facility]) Tobacco user Tobacco use disorder Chronic SI joint pain Disorders of sacrum Encounter for screening for lung cancer- Primary Chronic obstructive pulmonary disease, unspecified ([facility]) Primary hypertension ([facility]) Unspecified essential hypertension Osteoporosis, unspecified osteoporosis type, unspecified pathological fracture presence ([facility]) Type 2 diabetes mellitus without complication, without long-term current use of insulin ([facility]) Vitamin D deficiency Mixed hyperlipidemia ([facility]) Mixed hyperlipidemia Screening mammogram for breast cancer Tobacco user Tobacco use disorder Age-related osteoporosis without current pathological fracture ([facility]) Essential (primary) hypertension ([facility]) Unspecified essential hypertension Type 2 diabetes mellitus without complications ([facility]) Hyperlipidemia, unspecified ([facility]) Encounter for subsequent annual wellness visit (AWV) in Medicare patient Acute non-recurrent maxillary sinusitis Acute cough Cigarette nicotine dependence without complication documented in this encounter [facility] Summary [...] or prosecute any alcohol or drug abuse patient.[facility] Reason for Visit (unrecogniz ed section and content) Reason Onset Date Comments Future Appointment 11/22/2016 Reason Comments Med Refill INFORMATION SOURCE (unrecogn ized section and content) DATE CREATED AUTHOR 12/29/2022 [facility] DATE CREATED AUTHOR AUTHOR'S KAROL ATVENKATESH 11/01/2024 [facility] Care Teams (unrecognized sec tion and content) Senior Statistical Programmer Relationship Specialty Start Date End Date Daniel Lutz MD [address] [place] [phone] PCP - General Family Medicine 10/23/23 Natalie Medrano NP [address] [place] [phone] Nurse Practitioner Family Medicine 07/12/23 Senior Statistical Programmer Relationship Specialty Start Date End Date Daniel Lutz MD [address] [place] [id number] PCP - General Family Medicine 10/23/23 Natalie Medrano NP [address] [place] [phone] Nurse Practitioner Family Medicine 07/12/23 Senior Statistical Programmer Relationship Specialty Start Date End Date Daniel Ltuz MD [address] [place] [phone] PCP - General Family Medicine 10/23/23 Natalie Medrano NP [address] [place] [phone] Nurse Practitioner Family Medicine 07/12/23 Senior Statistical Programmer Relationship Specialty Start Date End Date Daniel Lutz MD [address] [place] [phone] PCP - General Family Medicine 10/23/23 Natalie Medrano NP [address] [place] [phone] Nurse Practitioner Family Medicine 07/12/23 Senior Statistical Programmer Relationship Specialty Start Date End Date Daniel Lutz MD [address] [place] [phone] PCP - General Family Medicine 10/23/23 Natalie Medrano NP [address] [place] [phone] Nurse Practitioner Family Medicine 07/12/23 Senior Statistical Programmer Relationship Specialty Start Date End Date Daniel Lutz MD [address] [place] [phone] PCP - General Family Medicine 10/23/23 Natalie Medrano NP [address] [place] [phone] Nurse Practitioner Family Medicine 07/12/23 Senior Statistical Programmer Relationship Specialty Start Date End Date Daniel Lutz MD [address] [place] [phone] PCP - General Family Medicine 10/23/23 Natalie Medrano NP [address] [place] [phone] Nurse Practitioner Family Medicine 07/12/23 FOR RECORDS [...] BE BASED ON THE PRIMARY CLINICAL RECORDS. [facility] provides no warranty or guarantee of the accuracy or completeness of information in this document.
[2024-11-28 07:56] LABS: Basophils Absolute Auto 0.1 10^3/uL (0.0-0.1); Eosinophils Absolute Auto 0.2 10^3/uL (0.0-0.7); Eosinophils Percent Auto 2.2 % (0.9-7.0); Hematocrit 39.4 % (36.0-48.0); Hemoglobin 13.4 g/dL (12.0-16.0); Immature Granulocytes Abs Auto 0.02 10^3/uL (0.00-0.03); Immature Granulocytes Pct Auto 0.2 % (0.0-0.5); Lymphocytes Absolute Auto 2.8 10^3/uL (1.2-3.8); Lymphocytes Percent Auto 34.4 % (20.5-60.0); Mean Corpuscular Hemoglobin 33.3 pg (26.7-34.0); Mean Corpuscular Volume 97.8 fL (81.0-99.0); Mean Platelet Volume 10.1 fL (9.5-13.5); Monocytes Absolute Auto 0.8 10^3/uL (0.3-0.8); Monocytes Percent Auto 9.1 % (1.7-12.0); Neutrophils Absolute Auto 4.4 10^3/uL (1.4-6.5); Neutrophils Percent Auto 53.1 % (43.0-75.0); Platelet Count 210 10^3/uL (150-450); Red Blood Count 4.03 10^6/uL (4.20-5.40); Red Cell Distribution Width 12.1 % (11.0-15.0); White Blood Count 8.3 10^3/uL (4.0-11.0)
[2024-11-28 08:00] LABS: Bilirubin Urine NEGATIVE (NEGATIVE); Blood Urine NEGATIVE (NEGATIVE); Clarity Urine CLEAR (CLEAR); Glucose Urine UA NEGATIVE (NEGATIVE); Ketones Urine TRACE mg/dL (NEGATIVE); Leukocyte Esterase Urine NEGATIVE (NEGATIVE); Nitrite Urine NEGATIVE (NEGATIVE); Protein Urine NEGATIVE (NEG/TRACE); Specific Gravity Urine >=1.030 (1.005-1.025); Urobilinogen Urine 0.2 EU/dL (0.2-1.0)
[2024-11-28 08:01] LABS: Color Urine YELLOW (YELLOW); Urine Microscopic Indicated NO
[2024-11-28 08:16] LABS: Creatinine Urine Random 142.43 mg/dL (20.00-300.00); Microalbum Creatinine Ratio Ur 9.8 mg/g (0.0-29.9); Microalbumin Urine Random 1.4 mg/dL (<=30.0)
[2024-11-28 08:33] LABS: Alanine Aminotransferase 18 U/L (14-59); Albumin Level 3.3 g/dL (3.4-5.0); Alkaline Phosphatase 97 U/L (46-116); Anion Gap 9.8; Aspartate Amino Transferase 15 U/L (15-37); BUN Creatinine Ratio 12.7; Bilirubin Total 0.3 mg/dL (0.2-1.0); Calcium 9.2 mg/dL (8.5-10.1); Carbon Dioxide 31.9 mmol/L (21.0-32.0); Chloride 107 mmol/L (98-107); Chol HDL Ratio 1.9; Cholesterol 137 mg/dL (<=200); Estimated GFR (African America >60 (>=60 mL/min/1.73m^2); Estimated GFR (Non-African Ame >60 (>=60 mL/min/1.73m^2); Globulin 3.4 g/dL; Glucose 124 mg/dL (74-106); HDL Cholesterol 74 mg/dL (40-60); Potassium 3.7 mmol/L (3.5-5.1); Sodium 145 mmol/L (136-145); Total Protein 6.7 g/dL (6.4-8.2); Triglycerides 84 mg/dL (<=150); VLDL CHOLESTEROL 16.8 mg/dL
== END 2024-11-28 07:29 | disposition home or self-care (01) ==
LOC: LAB 07:30
PROVIDERS: PCP Nurse Practitioner; Visit Provider Nurse Practitioner
DX: E55.9 Vitamin D deficiency, unspecified (principal); I10 Essential (primary) hypertension; J44.9 Chronic obstructive pulmonary disease, unspecified; Z72.0 Tobacco use; M81.0 Age-related osteoporosis without current pathological fracture; E11.9 Type 2 diabetes mellitus without complications; E78.2 Mixed hyperlipidemia
CPT/HCPCS: 36415; 80053; 80061; 81003; 82043; 82306; 82570; 85025

== ENCOUNTER 2024-12-25 13:21 | Outpatient (OUT) | payer MEDICARE, OTHER, SELFPAY ==
--- NOTE | 2024-12-25 13:26 | MM_ITS ---
Patient Name: SHAHRAM DAVIS MR#: [id number] : 1950 Exam Date: 12/25/2024 Ordering Doctor: PHILIP Medrano CNP RADIOLOGY REPORT PROCEDURE: MM TOMOSYNTHESIS SCREENING BI COMPARISON: MM TOMOSYNTHESIS SCREENING BI, 12/25/2023. MG MAMM SCREEN 3D ARIAN CAD, 12/23/2022. MG MAMM SCREEN 3D ARIAN CAD, 01/13/2021. MG MAMM ARIAN SCRN W CAD DIG, 01/07/2016. INDICATIONS: Screening Calculator Name NCI Breast Cancer Risk Assessment Tool 5 Year Breast Cancer Risk 1.50% Lifetime Breast Cancer Risk 3.90% Personal Breast Cancer No Personal Ovarian Cancer Yes, age 42 Treatments None Family Cancers Father with lung cancer at age 78. LOCATION: [facility] BREAST COMPOSITION: The breasts are heterogeneously dense,which may obscure small masses. FINDINGS: RIGHT BREAST: No significant suspicious finding. LEFT BREAST: No significant suspicious finding. DIAGNOSTIC CATEGORY 1--NEGATIVE. RECOMMENDATIONS: ROUTINE MAMMOGRAM AND CLINICAL EVALUATION IN 12 MONTHS. PLEASE NOTE: A NORMAL MAMMOGRAM DOES NOT EXCLUDE THE POSSIBILITY OF BREAST CANCER. A CLINICALLY SUSPICIOUS PALPABLE LUMP SHOULD BE BIOPSIED. Dictated by: Aleksandr Rawls DO on 12/26/2024 at 11:53 Approved by: Aleksandr Rawls DO on 12/26/2024 at 12:01
--- NOTE | 2024-12-25 13:26 | CT_ITS ---
The [address] [address] Patient Name: SHAHRAM DAVIS MRN: [id number] date: 1950 Sex: F Assigned Patient Location: MAMMO Current Patient Location: [facility] Accession/Order Number: [id number] Exam Date: 12/25/2024 15:12 Report Date: 12/25/2024 15:17 At the request of: GUY ROWELL NP Procedure: CT lung screening low-dose v CT CHEST WITHOUT CONTRAST, LOW DOSE SCREENING: CLINICAL DATA: A 74-year old current smoker, smoking for 20 pack-years. COMPARISON: None TECHNIQUE: Noncontrast axial CT scan images of the chest were obtained under the low dose screening CT protocol. Coronal and sagittal reconstructed images were also submitted. FINDINGS: Mediastinum : Suboptimal evaluation due to low-dose technique. Thoracic aorta appears normal in caliber. Pulmonary trunk appears nondilated. No pericardial effusion. No lymphadenopathy. The esophagus is grossly unremarkable. Lungs: No focal consolidation, pneumothorax or pleural effusion. Trachea and distal airways appear patent. Diffuse bronchial wall thickening. Emphysema. No suspicious noncalcified pulmonary nodule or mass. Upper abdomen: No acute findings. Bony thorax and chest wall: Soft tissues surrounding the chest wall demonstrate no acute findings. Osseous structures demonstrate degenerative change. CT/CT lung screening low-dose IMPRESSION: NO SUSPICIOUS PULMONARY NODULE OR MASS. LUNG - RADS Version 1.0 Assessment: Category 1, Negative (No nodules and definitely benign nodules). Management: Continue annual lung screening with LDCT in 12 months. Impression dictated by: Bill Bahena Jr., D.O.12/25/2024 3:17 PM Dictation Location: [place] [address] Electronically authenticated by: [id number] Y Date: 12/25/2024 15:17
--- OUTSIDE RECORDS SUMMARY | 2024-12-25 13:47 | XMS_ITS | CCD ---
Author Organization [facility] Inform [facility] Care Team Providers Care Storage Receipt Poster Name Role Phone Pedro Perez Primary Care Provider AICHHOLZ, FAX MACHINE OPERATOR NATALIE Admitting Unavailable AICHHOLZ, FAX MACHINE OPERATOR NATALIE Primary Care Unavailable AICHHOLZ, FAX MACHINE OPERATOR NATALIE Consulting Unavailable AICHHOLZ, FAX MACHINE OPERATOR NATALIE Attending Unavailable AICHHOLZ, FAX MACHINE OPERATOR NATALIE Primary Care Unavailable AICHHOLZ, FAX MACHINE OPERATOR NATALIE Attending Unavailable AICHHOLZ, FAX MACHINE OPERATOR NATALIE Admitting Unavailable DR LEDA CARRILLO V Consulting Unavailable AICHHOLZ, FAX MACHINE OPERATOR NATALIE Consulting Unavailable Aichholz COLLATOR OPERATOR, Natalie Unavailable Daniel Lutz MD Primary Care Provider [phone] Aichholz COLLATOR OPERATOR, Natalie Unavailable AICPARUL NATALIE Attending Unavailable AICHHOLZ, NATALIE Attending Unavailable Allergies Allergy Classification Reported Allergen(s) Allergy Type Date of Onset Reaction(s) Facility Niacin (1 source) Niacin Drug Allergy 5 Itching [facility] (1 source) Niacin Drug Allergy 5 The [facility] (9 sources) Niacin Drug Allergy 5 Itching, Unknown [facility] Work Phone: Medications Current Medications [...] SILVER PO) Take by mouth 0 Active [place]-3 Fatty Acids (Fish Oi l) 1000 MG capsule delayed-release (9 sources) take 1 capsule by mouth in the morning [place]-3 Fatty Acids (Fish Oil) 1000 MG capsule delayed-release Take 1,000 mg by mouth in the morning and 1,000 mg before bedtime. Active take 1 capsule by mouth in the m orning [place]-3 Fatty Acids (Fish Oil) 1000 MG capsule [...] A1Con 025 Glucose [Mass/Vol] 126 mg/dL [facility] HbA1c (Bld) [Mass fraction] 6 % 4.5 - 6.2 % [facility] Comment on above: ADA RECOMMENDED LIMI T 4.0 - 6.0 ADA THERAPEUTIC TARGET < 7.0 ACTION SUGGESTED > 7.0 [facility] MG MAMM SCREEN 3D ARIAN CADon 12-23-2022 MG MAMM SCREEN 3D ARIAN CAD Patient: MARITZA ZAVALA Exam Date: 12/23/2022 : 1950 Gender:F Ordering : [facility] Admission #: [id number] Family : Order #: [id number] CLICK HERE TO VIEW EXAM RADIOLOGY REPORT [...] lung cancer at age 80. LOCATION: [facility] BREAST COMPOSITION: Heterogeneously dense,which may obscure [...] MD on 12/26/2022 at 10:03 Normal [facility] CBC AUTO DIFFon 08-24-2022 BASO # 0.1 103/ul Normal 0.0-0.1 [facility] Comment on above: Performed By: #### C BC #### [facility] [address] [place] [address] Dr. Steven Jones Basophils/100 WBC (Bld) 0.9 % Normal 0.2-2.0 [facility] Comment on above: Performed By: #### C BC #### [facility] [address] [place] [address] Dr. Steven Jones EO # 0.1 103/ul Normal 0.0-0.7 [facility] Comment on above: Performed By: #### C BC #### [facility] [address] [place] [address] Dr. Steven Jones Eosinophils/100 WBC (Bld) 0.9 % Normal 0.9-7.0 [facility] Comment on above: Performed By: #### C BC #### [facility] [address] [place] [address] Dr. Steven Jones Erythrocyte distribution width (RBC) [Ratio] 12.0 % Normal 11.0-15.0 [facility] Comment on above: Performed By: #### C BC #### [facility] [address] [place] [address] Dr. Steven Jones Hematocrit (Bld) [Volume fraction] 39.2 % Normal 36.0-48.0 [facility] Comment on above: Performed By: #### C BC #### [facility] [address] [place] [address] Dr. Steven Jones Hemoglobin (Bld) [Mass/Vol] 13.3 g/dL Normal 12.0-16.0 [facility] Comment on above: Performed By: #### C BC #### [facility] [address] [place] [address] Dr. Steven Jones IG # 0.02 10e3/ul Normal 0.00-0.03 [facility] Comment on above: Performed By: #### C BC #### [facility] [address] [place] [address] Dr. Steven Jones IG % 0.3 % Normal 0.0-0.5 [facility] Comment on above: Performed By: #### C BC #### [facility] [address] [place] [address] Dr. Steven Jones LYMPH # 2.1 103/ul Normal 1.2-3.8 [facility] Comment on above: Performed By: #### C BC #### [facility] [address] [place] [address] Dr. Steven Jones Lymphocytes/100 WBC (Bld) 25.8 % Normal 20.5-60.0 [facility] Comment on above: Performed By: #### C BC #### [facility] [address] [place] [address] Dr. Steven Jones MANUAL DIFF REQ NO Normal [facility] Comment on above: Performed By: #### C BC #### [facility] [address] [place] [address] Dr. Steven Jones MCH (RBC) [Entitic mass] 33.2 pg Normal 26.7-34.0 [facility] Comment on above: Performed By: #### C BC #### [facility] [address] [place] [address] Dr. Steven Jones MCHC (RBC) [Mass/Vol] 33.9 g/dL Normal 29.9-35.2 [facility] Comment on above: Performed By: #### C BC #### [facility] [address] [place] [address] Dr. Steven Jones MCV (RBC) [Entitic vol] 97.8 fL Normal 81.0-99.0 [facility] Comment on above: Performed By: #### C BC #### [facility] [address] [place] [address] Dr. Steven Jones MONO # 0.7 103/ul Normal 0.3-0.8 [facility] Comment on above: Performed By: #### C BC #### [facility] [address] [place] [address] Dr. Steven Jones Monocytes/100 WBC (Bld) 8.8 % Normal 1.7-12.0 [facility] Comment on above: Performed By: #### C BC #### [facility] [address] [place] [address] Dr. Steven Jones NEUT # 5.1 103/ul Normal 1.4-6.5 [facility] Comment on above: Performed By: #### C BC #### [facility] [address] [place] [address] Dr. Steven Jones Neutrophils/100 WBC (Bld) 63.3 % Normal 43.0-75.0 [facility] Comment on above: Performed By: #### C BC #### [facility] [address] [place] [address] Dr. Steven Jones Platelet mean volume (Bld) [Entitic vol] 9.6 fL Normal 9.5-13.5 [facility] Comment on above: Performed By: #### C BC #### [facility] [address] [place] [address] Dr. Steven Jones PLT 199 103/ul Normal 150-450 [facility] Comment on above: Performed By: #### C BC #### [facility] [address] [place] [address] Dr. Steven Jones RBC 4.01 106/ul Critically low 4.20-5.40 [facility] Comment on above: Performed By: #### C BC #### [facility] [address] [place] [address] Dr. Steven Jones WBC 8.0 103/ul Normal 4.0-11.0 [facility] Comment on above: Performed By: #### C BC #### [facility] [address] [address] [address] Steven Jones GLYCOHEMOGLOBIN A1Con 2021 ADA RECOMMENDATION SEE BELOW Normal [facility] Comment on above: Result Comment: ADA RECOMMENDED LIMIT 4.0 - 6.0 ADA THERAPEUTIC TARGET < 7.0 ACTION SUGGESTED > 7.0 Performed By: #### A 1C #### [facility] [address] [address] [address] Steven Jones Glucose [Mass/Vol] 117 mg/dL Normal [facility] Comment on above: Performed By: #### A 1C #### [facility] [address] [place] [address] Dr. Steven Jones HbA1c (Bld) [Mass fraction] 5.7 % Normal 4.5-6.2 [facility] Comment on above: Performed By: #### A 1C #### [facility] [address] [place] [address] Dr. Steven Jones LIPID PROFILEon 08-24-2022 CHOL-HDL RATIO NORM SEE BELOW Normal [facility] Comment on above: Result Comment: 3.3 - 4.4 LOW RISK 4.4 - 7.1 AVERAGE RISK 7.1 - 11.0 MODERATE RISK >11.0 HIGH RISK Performed By: #### L IPID, CMP #### [facility] [address] [place] [address] Dr. Steven Jones Cholesterol [Mass/Vol] 110 mg/dL Normal <=200 [facility] Comment on above: Performed By: #### L IPID, CMP #### [facility] [address] [address] [address] Steven Jones Cholesterol in HDL [Mass/Vol] 64 mg/dL Critically high 40-60 [facility] Comment on above: Performed By: #### L IPID, CMP #### [facility] [address] [place] [address] Dr. Steven Jones Cholesterol in LDL [Mass/Vol] 21.2 mg/dL Normal [facility] Comment on above: Performed By: #### L IPID, CMP #### [facility] [address] [address] [address] Steven Jones Cholesterol.total/Ch olesterol in HDL [Mass ratio] 1.7 {ratio} Normal [facility] Comment on above: Performed By: #### L IPID, CMP #### [facility] [address] [address] [address] Steven Jones HDL NORMAL > or = 60 mg/dl - LOW CARDIOVASCULAR RISK <40 mg/dl - HIGH CARDIOVASCULAR RISK Normal [facility] Comment on above: Performed By: #### L IPID, CMP #### [facility] [address] [address] [address] Steven Jones LDL CALC NORMAL SEE BELOW Normal [facility] Comment on above: Result Comment: <100 mg/dl OPTIMAL 100 - 129 mg/dl NEAR OR ABOVE OPTIMAL 130 - 159 mg/dl BORDERLINE HIGH 160 - 189 mg/dl HIGH >190 mg/dl VERY HIGH Performed By: #### L IPID, CMP #### [facility] [address] [place] [address] Dr. Steven Jones Triglyceride [Mass/Vol] 124 mg/dL Normal <=150 [facility] Comment on above: Performed By: #### L IPID, CMP #### [facility] [address] [place] [address] Dr. Steven Jones VLDL CALC 24.8 mg/dL Normal [facility] Comment on above: Performed By: #### L IPID, CMP #### [facility] [address] [place] [address] Dr. Steven Jones MICROALBUMIN, RAND URon 08-11 mALB <1.3 Normal <=30.0 [facility] Comment on above: Performed By: #### M ALBR #### [facility] [address] [place] [address] Dr. Steven Jones PROF 14(COMP METB)on 022 Albumin [Mass/Vol] 3.3 g/dL Critically low 3.4-5.0 [facility] Comment on above: Performed By: #### L IPID, CMP #### [facility] [address] [address] [address] Steven Jones Albumin/Globulin [Mass ratio] 0.9 {ratio} Normal [facility] Comment on above: Performed By: #### L IPID, CMP #### [facility] [address] [address] [address] Steven Jones ALP [Catalytic activity/Vol] 79 U/L Normal 46-116 [facility] Comment on above: Performed By: #### L IPID, CMP #### [facility] [address] [address] [address] Steven Jones ALT [Catalytic activity/Vol] 20 U/L Normal 14-59 [facility] Comment on above: Performed By: #### L IPID, CMP #### [facility] [address] [address] [address] Steven Jones Anion gap [Moles/Vol] 9.3 mmol/L Normal [facility] Comment on above: Performed By: #### L IPID, CMP #### [facility] [address] [address] [address] Steven Jones AST [Catalytic activity/Vol] 18 U/L Normal 15-37 [facility] Comment on above: Performed By: #### L IPID, CMP #### [facility] [address] [address] [address] Steven Jones Bilirubin [Mass/Vol] 0.4 mg/dL Normal 0.2-1.0 [facility] Comment on above: Performed By: #### L IPID, CMP #### [facility] [address] [address] [address] Steven Jones Calcium [Mass/Vol] 8.5 mg/dL Normal 8.5-10.1 [facility] Comment on above: Performed By: #### L IPID, CMP #### [facility] [address] [address] [address] Steven Jones Chloride [Moles/Vol] 105 mmol/L Normal 98-107 [facility] Comment on above: Performed By: #### L IPID, CMP #### [facility] [address] [address] [address] Steven Jones CO2 [Moles/Vol] 29.7 mmol/L Normal 21.0-32.0 [facility] Comment on above: Performed By: #### L IPID, CMP #### [facility] [address] [address] [address] Steven Jones Creatinine [Mass/Vol] 0.54 mg/dL Critically low 0.55-1.02 [facility] Comment on above: Performed By: #### L IPID, CMP #### [facility] [address] [address] [address] Steven Jones EGFR-AF [place] >60 Normal >=60 [facility] Comment on above: Performed By: #### L IPID, CMP #### [facility] [address] [address] [address] Steven Jones EGFR-NON AF [place] >60 Normal >=60 [facility] Comment on above: Performed By: #### L IPID, CMP #### [facility] [address] [address] [address] Steven Jones Globulin (S) [Mass/Vol] 3.5 g/dL Normal [facility] Comment on above: Performed By: #### L IPID, CMP #### [facility] [address] [address] [address] Steven Jones Glucose [Mass/Vol] 86 mg/dL Normal 74-106 [facility] Comment on above: Performed By: #### L IPID, CMP #### [facility] [address] [address] [address] Steven Jones Potassium [Moles/Vol] 4.0 mmol/L Normal 3.5-5.1 [facility] Comment on above: Performed By: #### L IPID, CMP #### [facility] [address] [address] [address] Steven Jones Protein [Mass/Vol] 6.8 g/dL Normal 6.4-8.2 [facility] Comment on above: Performed By: #### L IPID, CMP #### [facility] [address] [address] [address] Steven Jones Sodium [Moles/Vol] 140 mmol/L Normal 136-145 [facility] Comment on above: Performed By: #### L IPID, CMP #### [facility] [address] [address] [address] Steven Jones Urea nitrogen [Mass/Vol] 9.0 mg/dL Normal 7.0-18.0 [facility] Comment on above: Performed By: #### L IPID, CMP #### [facility] [address] [address] [address] Steven Jones Urea nitrogen/Creatinine [Mass ratio] 16.7 mg/mg Normal [facility] Comment on above: Performed By: #### L IPID, CMP #### [facility] [address] [place] [address] Dr. Steven Jones UA RANDOM W/MICROSCOPICon BACTERIA NONE SEEN Normal NONE SEEN [facility] Comment on above: Performed By: #### U AMIC #### [facility] [address] [place] [address] Dr. Steven Jones Bilirubin Ql (U) Negative Normal NEGATIVE [facility] Comment on above: Performed By: #### U AMIC #### [facility] [address] [place] [address] Dr. Steven Jones CAST NONE SEEN Normal NONE SEEN [facility] Comment on above: Performed By: #### U AMIC #### [facility] [address] [place] [address] Dr. Steven Jones Clarity (U) CLEAR Normal CLEAR [facility] Comment on above: Performed By: #### U AMIC #### [facility] [address] [place] [address] Dr. Steven Jones Color (U) YELLOW Normal YELLOW [facility] Comment on above: Performed By: #### U AMIC #### [facility] [address] [place] [address] Dr. Steven Jones Crystals LM Nom (Urine sed) NONE SEEN Normal NONE SEEN [facility] Comment on above: Performed By: #### U AMIC #### [facility] [address] [address] [address] Steven Jones Epithelial cells LM Ql (Urine sed) RARE Normal NONE SEEN /RARE [facility] Comment on above: Performed By: #### U AMIC #### [facility] [address] [address] [address] Steven Jones Glucose Ql (U) Negative Normal NEGATIVE [facility] Comment on above: Performed By: #### U AMIC #### [facility] [address] [address] [address] Steven Jones Hemoglobin Ql (U) Negative Normal NEGATIVE [facility] Comment on above: Performed By: #### U AMIC #### [facility] [address] [place] [address] Dr. Steven Jones Ketones Ql (U) Negative Normal NEGATIVE [facility] Comment on above: Performed By: #### U AMIC #### [facility] [address] [address] [address] Steven Jones LEUKOCYTES Negative Normal NEGATIVE [facility] Comment on above: Performed By: #### U AMIC #### [facility] [address] [address] [address] Steven Jones MUCOUS TRACE Abnormal NONE SEEN [facility] Comment on above: Performed By: #### U AMIC #### [facility] [address] [address] [address] Steven Jones Nitrite Ql (U) Negative Normal NEGATIVE [facility] Comment on above: Performed By: #### U AMIC #### [facility] [address] [address] [address] Steven Jones pH (U) 7.0 [pH] Normal 5-9 [facility] Comment on above: Performed By: #### U AMIC #### [facility] [address] [place] [address] Dr. Steven Jones RBC 0-2 Normal 0-2 [facility] Comment on above: Performed By: #### U AMIC #### [facility] [address] [address] [address] Steven Jones SPEC GRAVITY 1.020 Normal 1.005-<=1.025 [facility] Comment on above: Performed By: #### U AMIC #### [facility] [address] [address] [address] Steven Jones UA PROTEIN Negative Normal NEGATIVE/ TRACE [facility] Comment on above: Performed By: #### U AMIC #### [facility] [address] [address] [address] Steven Jones Urobilinogen Qn (U) 1.0 {Oracio'U}/dL Normal 0.2 - 1. 0 [facility] Comment on above: Performed By: #### U AMIC #### [facility] [address] [place] [address] Dr. Steven Jones WBC 0-2 Abnormal NONE SEEN [facility] Comment on above: Performed By: #### U AMIC #### [facility] [address] [place] [address] Dr. Steven Jones VITAMIN D 25 OHon 08-24-2022 VIT D 25-OH 36.1 ng/mL Normal [facility] Comment on above: Performed By: #### V ITAD #### [facility] [address] [place] [address] Dr. Steven Jones VIT D RANGES SEE BELOW Normal [facility] Comment on above: Result Comment: <20 ng/mL Vit D deficient 20 - <30 ng/mL Vit D insufficient 30 - 100 ng/mL Vit D sufficient >100 ng/mL Potential Toxicity Performed By: #### V ITAD #### [facility] [address] [place] [address] Dr. Steven Jones Vital Signs Date Time Vital Sign Value Performing Clinician Faci lity 10-30-2024 16:52-0500 Body mass index (BMI) [Ratio] 20.34 kg/m2 Natalie Medrano NP Work Phone: [facility] 10-30-2024 16:52-0500 Body temperature 98.2 [degF] Natalie Aichholz COLLATOR OPERATOR Work Phone: [facility] 10-30-2024 16:52-0500 Body weight 55.43 kg Natalie Aichholz COLLATOR OPERATOR Work Phone: [facility] 10-30-2024 16:52-0500 Diastolic blood pressure 70 mm[Hg] Natalie Aichholz COLLATOR OPERATOR Work Phone: [facility] 10-30-2024 16:52-0500 Heart rate 116 /min Natalie Aichholz COLLATOR OPERATOR Work Phone: [facility] 10-30-2024 16:52-0500 Respiratory rate 18 /min Natalie Aichholz COLLATOR OPERATOR Work Phone: [facility] 10-30-2024 16:52-0500 SaO2% (BldA) [Mass fraction] 94 % Natalie Aichholz COLLATOR OPERATOR Work Phone: [facility] 10-30-2024 16:52-0500 Systolic blood pressure 102 mm[Hg] Natalie Aichholz COLLATOR OPERATOR Work Phone: [facility] 10-26-2023 17:31-0500 Body height 165.1 cm Natalie Aichholz COLLATOR OPERATOR Work Phone: [facility] 10-26-2023 17:31-0500 Body mass index (BMI) [Ratio] 20.97 kg/m2 Natalie Aichholz COLLATOR OPERATOR Work Phone: [facility] 10-26-2023 17:31-0500 Body temperature 97.11 [degF] Natalie Vipinhholz COLLATOR OPERATOR Work Phone: [facility] 10-26-2023 17:31-0500 Body weight 57.15 kg Natalie Aichholz COLLATOR OPERATOR Work Phone: [facility] 10-26-2023 17:31-0500 Diastolic blood pressure 78 mm[Hg] Natalie Aichholz COLLATOR OPERATOR Work Phone: [facility] 10-26-2023 17:31-0500 Heart rate 87 /min Natalie Hanyz COLLATOR OPERATOR Work Phone: [facility] 10-26-2023 17:31-0500 Respiratory rate 18 /min Natalie Medrano COLLATOR OPERATOR Work Phone: [facility] 10-26-2023 17:31-0500 SaO2% (BldA) [Mass fraction] 97 % Natalie Maganafranklyndamian COLLATOR OPERATOR Work Phone: [facility] 10-26-2023 17:31-0500 Systolic blood pressure 124 mm[Hg] Natalie Medrano COLLATOR OPERATOR Work Phone: [facility] Healthcare Encounters Encounter Date Encounter Type Care Provider Facility Start: 10-30-2024 End: 10-30-2024 ambulatory NATALIE MAGANAFRANKLYNDamian Not Available Start: 10-30-2024 End: 10-30-2024 Patient encounter procedure Natalie Maganajose elias COLLATOR OPERATOR Work Phone: [facility] Comment on above: Encounter for screen ing for lung cancer (Primary Dx); Chronic obstructive pulmonary disease, unspecified ([facility]/HCC); Primary hypertension ([facility]/HCC); Osteoporosis, unspecified osteoporosis type, unspecified pathological fracture presence ([facility]); Type 2 diabetes mellitus without complication, without long-term current use of insulin ([facility]); Vitamin D deficiency; Mixed hyperlipidemia ([facility]/HCC); Screening mammogram for breast cancer; Tobacco user; Age-related osteoporosis without current pathological fracture ([facility]/HCC); Essential (primary) hypertension ([facility]/HCC); Type 2 diabetes mellitus without complications ([facility]/HCC); Hyperlipidemia, unspecified ([facility]); Encounter for subsequent annual wellness visit (AWV) in Medicare patient; Acute non-recurrent maxillary sinusitis; Acute cough; Cigarette nicotine dependence without complication Start: 10-25-2024 End: 10-25-2024 [facility] Result Encounter Natalie Maganajose elias COLLATOR OPERATOR Work Phone: [facility] External Department Unsolicited Start: 10-25-2024 End: 10-25-2024 [facility] Result Encounter Natalie Maganajose elias COLLATOR OPERATOR Work Phone: [facility] External Department Unsolicited Start: 07-23-2024 End: 07-23-2024 Refill Natalie Aichholz COLLATOR OPERATOR Work Phone: [facility] Comment on above: Age-related osteopor osis without current pathological fracture ([facility]/HCC) Start: 04-30-2024 End: 04-30-2024 Refill Natalie Aichholz COLLATOR OPERATOR Work Phone: [facility] Comment on above: Hyperlipidemia, unsp ecified ([facility]/HCC); Essential (primary) hypertension ([facility]/HCC) Type 2 diabetes ana itus without complications ([facility]/HCC) Start: 04-25-2024 End: 04-25-2024 ambulatory NATALIE AICHHOLZ Not Available Start: 10-26-2023 Bamboo flowsheet Natalie Aichholz COLLATOR OPERATOR Work Phone: [facility] Start: 10-26-2023 Bamboo flowsheet Natalie Aichholz COLLATOR OPERATOR Work Phone: [facility] Start: 10-26-2023 End: 10-26-2023 Patient encounter procedure Natalie Aichholz COLLATOR OPERATOR Work Phone: [facility] Comment on above: Encounter for subseq uent annual wellness visit (AWV) in Medicare patient (Primary Dx); Screening mammogram for breast cancer; Primary hypertension ([facility]); Chronic obstructive pulmonary disease, unspecified COPD type ([facility]); Gastroesophageal reflux disease, unspecified whether esophagitis present; Vitamin D deficiency; Type 2 diabetes mellitus without complication, without long-term current use of insulin ([facility]); Colon cancer screening; Osteoporosis, unspecified osteoporosis type, unspecified pathological fracture presence ([facility]) Start: 12-23-2022 End: 12-24-2022 ambulatory FAX MACHINE OPERATOR NATALIE AICHHOLZ Facility:[facility] Start: 08-24-2022 End: 08-25-2022 ambulatory FAX MACHINE OPERATOR NATALIE AICHHOLZ Facility:[facility] Start: 11-22-2016 End: 11-22-2016 Telephone encounter Caleb Avila MD Work Phone: Ophthalmology Comment on above: Future Appointment Procedures Date Procedure Procedure Detail Performing Clinician Start: 10-25-2024 MLR HEMOGLOBIN A1C Natalie Aichholdamian COLLATOR OPERATOR Work Phone: Start: 12-25-2023 Mammography Natalie rojas COLLATOR OPERATOR Work Phone: Start: 12-23-2022 Mammography Natalie rojas COLLATOR OPERATOR Work Phone: Plan of Treatment Date Care Activity Detail Author Start: 08-28-2026 Glaucoma screening Diabetes: R etinopathy Screening [facility] Start: 11-03-2025 End: 11-03-2025 Patient encounter procedure 11/03/2025 4:15 PM EST Office Visit [facility] [address] [place] [phone] Natalie Medrano, NURIA [address] [place] [phone] [facility] Start: 10-30-2025 Medicare Annual Wellness (AWV) Medicare Annual Wellness (AWV) [facility] Start: 04-29-2025 End: 04-29-2025 Patient encounter procedure 04/29/2025 3:40 PM EDT Office Visit [facility] [address] [place] [phone] Natalie Medrano, COLLATOR OPERATOR [address] [place] [phone] [facility] Start: 02-09-2025 Glaucoma screening Diabetes: R etinopathy Screening [facility] Start: 12-30-2024 End: 10-30-2025 DXA Skeletal system Views for bone density DEXA bone density Imaging Routine Osteoporosis, unspecified osteoporosis type, unspecified pathological fracture presence ([facility]) Expected: 12/30/2024 (Approximate), Expires: 10/30/[address] [facility] Comment on above: Expected: 12/30/2024 (Approximate), Expires: 10/30/2025 Start: 12-30-2024 End: 12-28-2025 MG Breast - bilateral Screening Bilateral screening mammogram Imaging Routine Screening mammogram for breast cancer Expected: 12/30/2024 (Approximate), Expires: 12/28/[address] [facility] Work Phone: Comment on above: Expected: 12/30/2024 (Approximate), Expires: 12/28/2025 Start: 12-24-2024 Screening for malign ant neoplasm of breast Mammogram [facility] Start: 10-30-2024 End: 10-30-2024 Patient encounter procedure 10/30/2024 4:30 PM EST Office Visit [facility] [address] [place] [phone] Natalie Medrano, COLLATOR OPERATOR [address] [place] [phone] [facility] Start: 10-30-2024 End: 10-30-2025 25-hydroxyvitamin D3 [Mass/volume] in Serum or Plasma Vitamin D 25 hydroxy Lab Routine Vitamin D deficiency Expected: 10/30/2024 (Approximate), Expires: 10/30/[address] [facility] Comment on above: Expected: 10/30/2024 (Approximate), Expires: 10/30/2025 Start: 10-30-2024 End: 10-30-2025 CBC W Auto Differential panel - Blood CBC and differential Lab Routine Chronic obstructive pulmonary disease, unspecified (CMS/HCC) Tobacco user Expected: 10/30/2024 (Approximate), Expires: 10/30/[address] [facility] Comment on above: Expected: 10/30/2024 (Approximate), Expires: 10/30/2025 Start: 10-30-2024 End: 10-30-2025 Comprehensive metabolic 2000 panel - Serum or Plasma Comprehensive metabolic panel Lab Routine Primary hypertension (CMS/HCC) Osteoporosis, unspecified osteoporosis type, unspecified pathological fracture presence (CMS/HCC) Type 2 diabetes mellitus without complication, without long-term current use of insulin (CMS/HCC) Vitamin D deficiency Mixed hyperlipidemia (CMS/HCC) Expected: 10/30/2024 (Approximate), Expires: 10/30/[address] [facility] Comment on above: Expected: 10/30/2024 (Approximate), Expires: 10/30/2025 Start: 10-30-2024 End: 10-30-2025 CT Chest for screening WO contrast CT lung screening low dose Imaging Routine Encounter for screening for lung cancer Cigarette nicotine dependence without complication Expected: 10/30/2024 (Approximate), Expires: 10/30/[address] [facility] Comment on above: Expected: 10/30/2024 (Approximate), Expires: 10/30/2025 Start: 10-30-2024 End: 10-30-2025 Lipid 1996 panel - Serum or Plasma Lipid panel Lab Routine Mixed hyperlipidemia (CMS/HCC) Expected: 10/30/2024 (Approximate), Expires: 10/30/[address] [facility] Comment on above: Expected: 10/30/2024 (Approximate), Expires: 10/30/2025 Start: 10-30-2024 End: 10-30-2025 Microalbumin/Creatinine panel in random Urine Microalbumin / creatinine, urine ratio Lab Routine Primary hypertension ([facility]) Type 2 diabetes mellitus without complication, without long-term current use of insulin (CMS/HCC) Expected: 10/30/2024 (Approximate), Expires: 10/30/[address] [facility] Comment on above: Expected: 10/30/2024 (Approximate), Expires: 10/30/2025 Start: 10-30-2024 End: 10-30-2025 Urinalysis complete panel - Urine Urinalysis with reflex microscopic (clean catch) Lab Routine Primary hypertension (CMS/HCC) Type 2 diabetes mellitus without complication, without long-term current use of insulin ([facility]) Tobacco user Expected: 10/30/2024 (Approximate), Expires: 10/30/[address] [facility] Comment on above: Expected: 10/30/2024 (Approximate), Expires: 10/30/2025 Start: 10-26-2024 Medicare Annual Wellness (AWV) Medicare Annual Wellness (AWV) [facility] Start: 10-06-2024 Urine screening for protein Diabetes: Urine Protein Screening [facility] Start: 05-12-2024 Influenza vaccination Influenza Vacc ine (#1) [facility] Start: 04-25-2024 End: 04-25-2024 Patient encounter procedure 04/25/2024 1:20 PM EDT Office Visit [facility] [address] [place] [phone] Natalie Medrano, NURIA [address] [place] [phone] [facility] Start: 04-11-2024 Pneumococcal Vaccine : 65+ Years (3 of 3 - PPSV23 or PCV20) Pneumococcal Vaccine: 65+ Years (3 of 3 - PPSV23 or PCV20) [facility] Comment on above: Postponed from 06/22 (Other Patient Reasons) Start: 01-05-2024 Hemoglobin A1c measurement Diabetes: Hemoglobin A1C [facility] Start: 12-25-2023 End: 12-24-2024 MG Breast - bilateral Screening Bilateral screening mammogram Imaging Routine Screening mammogram for breast cancer Expected: 12/25/2023 (Approximate), Expires: 12/24/[address] [facility] Work Phone: Comment on above: Expected: 12/25/2023 (Approximate), Expires: 12/24/2024 Start: 12-24-2023 Screening for malign ant neoplasm of breast Mammogram [facility] Start: 10-26-2023 End: 10-26-2023 Patient encounter procedure 10/26/2023 5:30 PM EST Office Visit [facility] [address] [place] [address] Natalie Medrano, NURIA [address] [place] [phone] Screening mammogram for breast cancer (Primary Dx) [facility] Comment on above: Screening mammogram for breast cancer (Primary Dx) Start: 10-26-2023 End: 10-26-2024 DXA Skeletal system Views for bone density DEXA bone density Imaging Routine Osteoporosis, unspecified osteoporosis type, unspecified pathological fracture presence (CMS/HCC) Expected: 10/26/2023, Expires: 10/26/[address] [facility] Comment on above: Expected: 10/26/2023 , Expires: 10/26/2024 Start: 06-22-2021 Pneumococcal Vaccine : 65+ Years (3 of 3 - PPSV23 or PCV20) Pneumococcal Vaccine: 65+ Years (3 of 3 - PPSV23 or PCV20) [facility] Start: 05-12-2021 Influenza vaccination INFLUENZA (Sea son Ended) [facility] Start: 2017 ADVANCE DIRECTIVE DISCUSSION ADVANCE DIRECTIVE DISCUSSION [facility] Start: 2017 BONE DENSITY BONE DENSITY [facility] Start: 2017 PNEUMOVAX AGE 65 AND OVER WITH 5YR LOOKBACK (#1) PNEUMOVAX AGE 65 AND OVER WITH 5YR LOOKBACK (#1) [facility] Start: 2002 Screening for malign ant neoplasm of colon [facility] Start: 2002 SHINGRIX VACCINE (1 of 2) SHINGRIX VACCINE (1 of 2) [facility] Start: 1997 DIABETES SCREEN DIABETES SCREEN [facility] Start: 1997 LIPID SCREEN LIPID SCREEN [facility] Start: 1992 Mammography MAMMOGRAM [facility] Start: 1971 Urine microalbumin profile DTAP,TDAP,TD (1 - Tdap) [facility] Start: 1970 HEPATITIS C SCREENING HEPATITIS C SC REENING [facility] Start: 1964 Adult depression screening assessment DEPRESSION SCREENING [facility] Start: 1962 Glaucoma screening Diabetes: R etinopathy Screening [facility] Start: 1952 Medicare Annual Wellness (AWV) Medicare Annual Wellness (AWV) [facility] Noninvasive colorect al cancer DNA and occult blood screening [Presence] in Stool Cologuard colon cancer screening Lab Routine Colon cancer screening Ordered: 10/26/[address] [facility] Comment on above: Ordered: 10/26/2023 Immunizations Immunization Date Immunization Notes Care Provider Sameer ronquillo 07-06-2023 Influenza, High-dose Seasonal, Quadrivalent, Preservative Free Natalie Aicdellaholz COLLATOR OPERATOR Work Phone: [facility] 07-06-2023 influenza virus vacc ine, unspecified formulation Natalie Aichholz COLLATOR OPERATOR Work Phone: [facility] 06-01-2022 Influenza, High-dose Seasonal, Quadrivalent, Preservative Free Natalie Aichholz COLLATOR OPERATOR Work Phone: [facility] 07-29-2021 Seasonal, quadrivale nt, recombinant, injectable influenza vaccine, preservative free Natalie Aichholz COLLATOR OPERATOR Work Phone: [facility] 06-06-2020 influenza, high dose seasonal, preservative-free Natalie Aichholz COLLATOR OPERATOR Work Phone: [facility] 06-05-2020 influenza, seasonal, injectable Natalie Aichholz COLLATOR OPERATOR Work Phone: [facility] 05-18-2019 influenza, high dose seasonal, preservative-free Natalie Aichholz COLLATOR OPERATOR Work Phone: [facility] 05-18-2019 pneumococcal conjuga te vaccine, 13 valent Natalie Aichholz COLLATOR OPERATOR Work Phone: [facility] 06-12-2018 influenza, high dose seasonal, preservative-free Natalie Aichholz COLLATOR OPERATOR Work Phone: [facility] 07-06-2017 influenza, high dose seasonal, preservative-free Natalie Aichholz COLLATOR OPERATOR Work Phone: [facility] 06-28-2017 influenza, injectabl e, quadrivalent, preservative free Natalie Aichholz COLLATOR OPERATOR Work Phone: [facility] 06-22-2016 pneumococcal polysaccharide vaccine, 23 valent Natalie Aichholz COLLATOR OPERATOR Work Phone: [facility] 06-22-2016 zoster vaccine, live Natalie chholz COLLATOR OPERATOR Work Phone: [facility] 06-17-2015 influenza, seasonal, injectable, preservative free Natalie Aichholz COLLATOR OPERATOR Work Phone: [facility] 04-07-2014 pneumococcal polysaccharide vaccine, 23 valent Natalie Aichholz COLLATOR OPERATOR Work Phone: [facility] 01-28-2014 zoster vaccine, live Natalie chholz COLLATOR OPERATOR Work Phone: [facility] 07-24-2013 influenza, seasonal, injectable Natalie Aichholz COLLATOR OPERATOR Work Phone: [facility] Payers Date Payer Category Payer Private Health Insurance [facility] [id number] 2022 Unknown [facility] [id number] 2022-Present [id number] [facility] [place] [address] [id number] 2017 Medicare [id number] 2015 Unknown [employer] [id number] 2015-Present PPO [id number] 1959 Medicare [id number] 1959 Unknown [id number] 1952 Unknown [id number] 1952 Unknown [id number] 1952 Unknown [id number] 1952 Unknown [id number] Social History Date Type Detail Facility Start: 07-31-2015 End: 10-26-2023 Tobacco smoking status NHIS Current every day smoker [facility] History of tobacco use Cigarette Smoker C [facility] Start: 07-31-2015 End: 10-26-2023 Cigarettes smoked current (pack per day) - Reported [facility] Start: 07-31-2015 End: 10-30-2024 Alcohol intake Current drinker of alcohol (finding) [facility] Start: 1950 Sex Assigned At Not on file C [facility] Start: 10-23-2023 End: 10-26-2023 Tobacco use panel [facility] Start: 10-23-2023 Alcohol Comment caffeine 2-3 c ups per day [facility] Start: 10-26-2023 Tobacco use and exposure Smoke less tobacco non-user [facility] Within the last year , have you been afraid of your partner or ex-partner? No [facility] Do you belong to any clubs or organizations such as baptist groups, [employer], [employer] or athletic groups, or school groups? Yes [...] of the risks of continued smoking: stroke, OK, all forms of cancer, lung disease, and [...] being taken. She does not see a volleyball coach.Eye exam is current. Hypertension This is a [...] ear 10/26/2023 COPD (chronic obstructive pulmonary disease) ([facility]) 10/26/2023 ETD (Eustachian tube dysfunction), bilateral 10/26/2023 GERD (gastroesophageal reflux disease) 10/26/2023 Heart problem 10/26/2023 Hyperlipidemia ([facility]) 10/26/2023 Hypertension ([facility]) 10/26/2023 Lumbar back pain with radiculopathy affecting left lower extremity 10/26/2023 Mixed conductive and sensorineural hearing loss of both ears 10/26/2023 Osteoporosis ([facility]) 10/26/2023 Tobacco user 10/26/2023 Type 2 diabetes mellitus ([facility]) 10/26/2023 Vitamin D deficiency [...] Urinalysis with reflex microscopic (clean catch) Osteoporosis ([facility]) Calcium and Vit D Order DEXA Relevant Medications alendronate (Fosamax) 35 MG tablet Other Relevant Orders DEXA bone density Comprehensive metabolic panel Vitamin D deficiency Takes supplement Check labs yearly and prn Relevant Orders Comprehensive metabolic panel Vitamin D 25 hydroxy Type 2 diabetes mellitus ([facility]) Check blood sugars daily, notify [...] Urinalysis with reflex microscopic (clean catch) Hyperlipidemia ([facility]) On statin therapy Check labs yearly and [...] of the risks of continued smoking: stroke, OK, all forms of cancer, lung disease, and [...] of the risks of continued smoking: stroke, OK, all forms of cancer, lung disease, and [...] density in December 2024-I will fax to [facility] documented in this encounter [facility] History [...] being taken. She does not see a volleyball coach.Eye exam is current. Hypertension This is a [...] ear 10/26/2023 COPD (chronic obstructive pulmonary disease) ([facility]) 10/26/2023 ETD (Eustachian tube dysfunction), bilateral 10/26/2023 GERD (gastroesophageal reflux disease) 10/26/2023 Heart problem 10/26/2023 Hyperlipidemia ([facility]) 10/26/2023 Hypertension ([facility]) 10/26/2023 Lumbar back pain with radiculopathy affecting left lower extremity 10/26/2023 Mixed conductive and sensorineural hearing loss of both ears 10/26/2023 Osteoporosis ([facility]) 10/26/2023 Tobacco user 10/26/2023 Type 2 diabetes mellitus ([facility]) 10/26/2023 Vitamin D deficiency 10/26/2023 [...] This Visit COPD (chronic obstructive pulmonary disease) ([facility]) No changes in meds Hypertension ([facility]) At goal GERD (gastroesophageal reflux disease) stable Osteoporosis ([facility]) Relevant Orders DEXA bone density Vitamin D deficiency Reviewed labs Type 2 diabetes mellitus ([facility]) Check blood sugars daily, notify [...] colon cancer screening documented in this encounter [facility] Note 11-22-2016 Telephone Encounter - [...] patient below. Jennifer Zavala Her mom's cell# [phone] Could you call her and coordinate a time for us to see her in the next 1-3 weeks? Electronically signed by Sole [facility] at 11/22/2016 12:31 PM EDTdocumented in this encounter [facility] Evaluation note Note Date & Type [...] fracture presence (CMS/HCC) documented in this encounter [facility] Evaluation note Note Date & [...] pathological fracture (CMS/HCC) documented in this encounter [facility] Evaluation note Note Date & Type Note Facility Evaluation note Diagnosis Hyperlipidemia, unspecified (CMS/HCC) Essential (primary) hypertension (CMS/HCC) Unspecified essential hypertension documented in this encounter [facility] Evaluation note Note Date & Type Note Facility Evaluation note Diagnosis Type 2 diabetes mellitus without complications (CMS/HCC) documented in this encounter [facility] Evaluation note Note Date & [...] complication, without long-term current use of insulin ([facility]) Colon cancer screening Special screening for malignant neoplasms, colon Osteoporosis, unspecified osteoporosis type, unspecified pathological fracture presence ([facility]) Primary hypertension ([facility])- Primary Unspecified essential hypertension Type 2 diabetes mellitus without complication, without long-term current use of insulin ([facility]) Tobacco user Tobacco use disorder Chronic SI joint pain Disorders of sacrum Encounter for screening for lung cancer- Primary Chronic obstructive pulmonary disease, unspecified ([facility]) Primary hypertension ([facility]) Unspecified essential hypertension Osteoporosis, unspecified osteoporosis type, unspecified pathological fracture presence ([facility]) Type 2 diabetes mellitus without complication, without long-term current use of insulin ([facility]) Vitamin D deficiency Mixed hyperlipidemia ([facility]) Mixed hyperlipidemia Screening mammogram for breast cancer Tobacco user Tobacco use disorder Age-related osteoporosis without current pathological fracture ([facility]) Essential (primary) hypertension ([facility]) Unspecified essential hypertension Type 2 diabetes mellitus without complications ([facility]) Hyperlipidemia, unspecified ([facility]) Encounter for subsequent annual wellness visit (AWV) [...] or prosecute any alcohol or drug abuse patient.[facility] Reason for Visit (unrecogniz ed section and content) Reason Onset Date Comments Future Appointment 11/22/2016 Reason Comments Med Refill INFORMATION SOURCE (unrecogn ized section and content) DATE CREATED AUTHOR 12/29/2022 [facility] DATE CREATED AUTHOR AUTHOR'S KAROL ATVENKATESH 11/01/2024 [facility] Care Teams (unrecognized sec tion and content) Storage Receipt Poster Relationship Specialty Start Date End Date Daniel Lutz MD [address] [place] [phone] PCP - General Family Medicine 10/23/23 Natalie Medrano NP [address] [place] [phone] Nurse Practitioner Family Medicine 07/12/23 Storage Receipt Poster Relationship Specialty Start Date End Date Daniel Lutz MD [address] [place] [phone] PCP - General Family Medicine 10/23/23 Natalie Medrano NP [address] [place] [phone] Nurse Practitioner Family Medicine 07/12/23 Storage Receipt Poster Relationship Specialty Start Date End Date Daniel Lutz MD [address] [place] [phone] PCP - General Family Medicine 10/23/23 Natalie Medrano NP [address] [place] [phone] Nurse Practitioner Family Medicine 07/12/23 Storage Receipt Poster Relationship Specialty Start Date End Date Daniel Lutz MD [address] [place] [phone] PCP - General Family Medicine 10/23/23 Natalie Medrano NP [address] [place] [phone] Nurse Practitioner Family Medicine 07/12/23 Storage Receipt Poster Relationship Specialty Start Date End Date Daniel Lutz MD [address] [place] [phone] PCP - General Family Medicine 10/23/23 Natalie Medrano NP [address] [place] [phone] Nurse Practitioner Family Medicine 07/12/23 Storage Receipt Poster Relationship Specialty Start Date End Date Daniel Lutz MD [address] [place] [phone] PCP - General Family Medicine 10/23/23 Natalie Medrano NP [address] [place] [phone] Nurse Practitioner Family Medicine 07/12/23 Storage Receipt Poster Relationship Specialty Start Date End Date Daniel Lutz MD [address] [place] [phone] PCP - General Family Medicine 10/23/23 Natalie Medrano NP [address] [place] [phone] Nurse Practitioner Family Medicine 07/12/23 FOR RECORDS [...] BE BASED ON THE PRIMARY CLINICAL RECORDS. [facility] provides no warranty or guarantee of the accuracy or completeness of information in this document.
== END 2024-12-25 13:22 | disposition home or self-care (01) ==
LOC: MAMMO 13:22
PROVIDERS: PCP Nurse Practitioner; Visit Provider Nurse Practitioner
DX: Z12.31 Encounter for screening mammogram for malignant neoplasm of breast (principal); Z12.2 Encounter for screening for malignant neoplasm of respiratory organs; F17.210 Nicotine dependence, cigarettes, uncomplicated; Z85.43 Personal history of malignant neoplasm of ovary; Z80.1 Family history of malignant neoplasm of trachea, bronchus and lung; M81.0 Age-related osteoporosis without current pathological fracture
CPT/HCPCS: 71271; 77063; 77067; 77080

== ENCOUNTER 2025-09-02 12:54 | Outpatient (OUT) | payer MEDICARE, OTHER, SELFPAY ==
--- OUTSIDE RECORDS SUMMARY | 2025-09-02 12:58 | XMS_ITS | Clinical Summary ---
Author Organization [facility] Address [address] [place] [id number] Care Team Providers Care Pattern Layout Worker Name Role Phone Pedro Perez Primary Care Provider [phone] Allergies Active AllergyReactionsCriticalityNoted KmcnNtfxowoyDkhnspVgojzzi86/20/2015 Medications MedicationSigDispense QuantityRefillsLast FilledStart DateEnd DateStatus alendronate (FOSAMAX) 35 mg tablet Take 35 mg by mouth once each week.Active aspirin, enteric coated (ASPIRIN, ENTERIC COATED) 81 mg EC tablet Take 81 mg by mouth once daily.Active multivitamin tablet Take 1 tablet by mouth once daily.Active gemfibrozil (LOPID) 600 mg tablet Take 600 mg by mouth once daily.Active lisinopril (ZESTRIL, PRINIVIL) 10 mg tablet Take 10 mg by mouth once daily.Active loratadine (CLARITIN) 10 mg tablet Take 10 mg by mouth once daily.Active metFORMIN (GLUCOPHAGE) 500 mg tablet Take 500 mg by mouth once daily.Active omeprazole (PRILOSEC) 20 mg capsule Take 20 mg by mouth once daily.Active simvastatin (ZOCOR) 20 mg tablet Take 20 mg by mouth daily at bedtime.Active Ascorbic Acid chew Take 500 mg by mouth once daily.Active cholecalciferol (VITAMIN D3) 1,000 unit tab Take 6,000 Units by mouth once daily.Active glipiZIDE (GLUCOTROL) 10 mg tablet Take 10 mg by mouth twice daily before meals.Active diltiazem (CARDIZEM) 30 mg tablet Take 30 mg by mouth three times daily.Active Social History Tobacco UseTypesPacks/DayYears UsedDateSmoking Tobacco: Every DayCigarettes0.540 Alcohol UseStandard Drinks/WeekCommentsYes6 (1 standard drink = 0.6 oz pure alcohol)CommentsNoSex and Gender InformationValueDate RecordedSex Assigned at BirthNot on fileLegal TgdXvwyqd46/19/2015 3:46 PM EDTGender Identity Not on fileSexual OrientationNot on file Plan of Treatment Health MaintenanceDue DateLast DoneCommentsAnxiety Rjhtipitw93/27/1970Depression Mxhauqywg42/27/1970Hepatitis C Rcqvhqumq35/27/1970DTaP,Tdap,Td Vaccine (1 - Tdap)1971Mammogram Femujrhcm30/27/1992CT Jjhsluyuikax77/27/1997Cologuard (FIT-DNA)04/06/19978107Xlyjlfeurbf53/27/1997Colorectal Cancer Xxyouwxpc30/27/1997 Diabetes Gugofvzil82/27/1997Fecal Occult Blood1997Lipid Screening 04/06/19978824Hmziyxhwmnylm83/27/1997Pneumococcal Vaccine: 50+ (1 of 1 - PCV) 2002Shingrix Vaccine (1 of 2)2002Bone Density Ajsyioyrq66/27/2017 Advance Directive Ojrcmannlt49/01/2025ovid-19 Vaccine (1 - 2024- season) 2025Influenza Vaccine (#1)2025RSV Vaccine (1 - 1-dose 75+ series) 2027 Care Teams Team MemberRelationshipSpecialtyStart DateEnd Date Pedro Perez [address] [place] [address] [id number] PCP - GeneralFamily Zcxfxsbx05/19/15
--- OUTSIDE RECORDS SUMMARY | 2025-09-02 12:58 | XMS_ITS | Clinical Summary ---
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 Name Role Phone Mitchell Natalie QUIÑONES Unavailable [phone] Daniel Lutz MD Primary Care Provider [phone] Allergies Active AllergyReactionsCriticalityNoted DateCommentsNiacinItching,Unknown 07/31/2015 Medications MedicationSigDispense QuantityRefillsLast FilledStart DateEnd DateStatus [place]-3 Fatty Acids (Fish Oil) 1000 MG capsule delayed-release Take 1,000 mg by mouth in the morning and 1,000 mg before bedtime.Active Loratadine 10 MG capsule Take 10 mg by mouth 1 (one) time each dayActive aspirin 81 MG EC tablet Take 81 mg by mouth in the morning.Active Multiple Vitamins-Minerals (CENTRUM SILVER PO) Take by mouthActive Vitamin E (E-400-Clear) 268 MG (400 UNIT) capsule Take 400 Units by mouth in the morning.Active cholecalciferol 50 MCG (2000 UT) tablet Take 2,000 Units by mouth in the morning.Active timolol (Timoptic) 0.25 % ophthalmic solution instill 1 DROP IN BOTH EYES IN THE BAIAHTS81/14/2024Active dorzolamide-timolol (Cosopt) 2-0.5 % ophthalmic solution instill 1 DROP IN BOTH EYES TWICE DAILY5Active alendronate (Fosamax) 35 MG tablet Indications:Age-related osteoporosis without current pathological fractureTake 1 tablet (35 mg) by mouth every 7 (seven) days Take in the morning with a full glass of water,on an empty stomach, and do not take anything else by mouth or lie down for the next 30 min. 12 tablet 5Active dilTIAZem (Cardizem) 30 MG immediate release tablet Indications:Essential (primary) hypertensionTake 1 tablet (30 mg) by mouth every 8 (eight) hours 270 tablet 5Active isosorbide mononitrate ER (Imdur) 30 MG 24 hr tablet Indications:Essential (primary) hypertensionTake 1 tablet (30 mg) by mouth Daily 90 tablet 5Active lisinopril 20 MG tablet Indications:Essential (primary) hypertensionTake 1 tablet (20 mg) by mouth Daily 90 tablet 5Active metFORMIN (Glucophage) 500 MG tablet Indications:Type 2 diabetes mellitus without complications (HCC)Take 1 tablet (500 mg) by mouth in the morning. Take with meals. 90 tablet 5Active rosuvastatin (Crestor) 20 MG tablet Indications:Hyperlipidemia, unspecifiedTake 1 tablet (20 mg) by mouth at bedtime 90 tablet 5Active Active Problems ProblemNoted DateDiagnosed DateAcute cough10/30/2024Encounter for screening for lung amcgrp8110/30/2024 Assessment & Plan (10/30/2024 5:48 PM EST): Patient meets requirements for low dose CT [...] counseled on the importance of smoking cessation. Chronic SI joint pain04/25/2024 Assessment & Plan (04/25/2024 1:43 PM EDT): Offered xray and pain mgmt She will hold right now and monitor Will contact office if worsens Chronic obstructive pulmonary disease, sheuzvaufys13/15/2024 Assessment & Plan (04/29/2025 7:09 AM EDT): Current meds: none Assessment & Plan (10/30/2024 7:16 AM EST): Current meds: none Assessment & Plan (10/26/2023 6:02 PM EST): No changes in meds Bfhdcxaeuqcr53/15/2024 Assessment & Plan (04/29/2025 7:09 AM EDT): Please check blood pressure daily and record DASH diet Limit caffeine Take medication as directed Contact office if chest pain, pressure, dizziness, shortness of breath, swelling legs Recommend slow position changes Current meds: cardizem, imdur, lisinopril, Assessment & Plan (10/30/2024 7:17 AM EST): Please check blood pressure daily and record DASH diet Limit caffeine Take medication as directed Contact office if chest pain, pressure, dizziness, shortness of breath, swelling legs Recommend slow position changes Current meds: cardizem, imdur, lisinopril, Assessment & Plan (04/25/2024 1:41 PM EDT): Stable No med changes Assessment & Plan (10/26/2023 6:02 PM EST): At goal Heart fbxtoqg5410/26/2023GERD (gastroesophageal reflux disease)10/26/2023 Assessment & Plan (04/29/2025 7:09 AM EDT): Recommendations: freq small meals, nothing to eat or drink at least 2 hours prior to bed, limit caffeine, alcohol, as well as spicy foods Meds to limit or avoid if possible: NSAIDS Elevate HOB if possible Assessment & Plan (10/26/2023 6:02 PM EST): stable Lrllvfxkvlbr02/15/2024 Overview (04/29/2025): DEXA: 12/25/2024 -1.1 osteopenia femur Assessment & Plan (04/29/2025 5:02 PM EDT): Calcium and Vit D fosamax Assessment & Plan (10/30/2024 7:18 AM EST): Calcium and Vit D Order DEXA Vitamin /15/2024Vitamin D xtvywxryfv17/15/2024 Assessment & Plan (10/30/2024 7:19 AM EST): Takes supplement Check labs yearly and prn Assessment & Plan (10/26/2023 6:03 PM EST): Reviewed labs Type 2 diabetes zauhvneh14/15/2024 Assessment & Plan (04/29/2025 5:03 PM EDT): Check blood sugars daily, notify if <70 or >200. Take medications (pills or insulin) as directed. Monitor for s/s of hypoglycemia (sweaty, dizziness, nausea, vomiting, or shakiness). Watch for increase in thirst, urination, or appetite. Inspect feet frequently monitoring for open wounds , andalso recommend yearly eye exam. Pt should attempt to remain as physically active as chronic conditions allow, as well as trying to follow a diet low in carbohydrates, and simple sugars. Current meds: asa, xuan, metformin, statin A1c 6.6% 04/29/25, 6% on 10/25/24 Assessment & Plan (10/30/2024 5:31 PM EST): Check blood sugars daily, notify if <70 or >200. Take medications (pills or insulin) as directed. Monitor for s/s of hypoglycemia (sweaty, dizziness, nausea, vomiting, or shakiness). Watch for increase in thirst, urination, or appetite. Inspect feet frequently monitoring for open wounds , andalso recommend yearly eye exam. Pt should attempt to remain as physically active as chronic conditions allow, as well as trying to follow a diet low in carbohydrates, and simple sugars. Current meds: asa, xuan, metformin, statin A1c 6% on 10/25/24 Assessment & Plan (04/25/2024 1:41 PM EDT): Stop glipizide Cont metfromin Check A1c test Assessment & Plan (10/26/2023 6:03 PM EST): Check blood sugars daily, notify if <70 or >200. Take medications (pills or insulin) as directed. Monitor for s/s of hypoglycemia (sweaty, dizziness, nausea, vomiting, or shakiness). Watch for increase in thirst, urination, or appetite. Inspect feet frequently monitoring for open wounds , andalso recommend yearly eye exam. Pt should attempt to remain as physically active as chronic conditions allow, as well as trying to follow a diet low in carbohydrates, and simple sugars. Chronic myringitis of right ear10/26/2023Mixed conductive and sensorineural hearing loss of both ears10/26/2023Lumbar back pain with radiculopathy affecting left lower ownrnkcnm37/15/6467Cbjqjuswjlquys70/15/2024 Assessment & Plan (10/30/2024 7:21 AM EST): On statin therapy Check labs yearly and prn dose changes ETD (Eustachian tube dysfunction), tzabnidzn21/15/2024Screening mammogram for breast wwwefj7010/26/2023Encounter for subsequent annual wellness visit (AWV) in Medicare sasahgx2710/26/2023 Assessment & Plan (10/30/2024 5:31 PM EST): Reviewed Ht/Wt/BMI Recommend eye exam yearly Recommend dental exams twice a year Exercises is recommended most days of the week (appropriate as chronic conditions allow) Follow up yearly and prn Assessment & Plan (10/26/2023 6:22 PM EST): Reviewed Ht/Wt/BMI Recommend eye exam yearly Recommend dental exams twice a year Balance work/leisure activities Exercises is recommended most days of the week (appropriate as chronic conditions allow) Follow up yearly and prn Colon cancer urnhbapqs96/15/2024igarette nicotine dependence without iznaghvruemr93/15/2024 Overview (12/25/2024): Low Dose CT 12/25/24: no nodules Assessment & Plan (04/29/2025 7:12 AM EDT): The patient has been advised of the risks of continued smoking: stroke, PA, all forms of cancer, lung disease, and . Options for quitting smoking include: cold turkey, hypnosis, acupuncture, nicotine replacement meds(gum, lozenges, and patches), Buproprion, and Varenicline. At this time pt is encouraged to evaluate their goals for wanting to quit smoking, and reach out toprovider when ready to start this process Assessment & Plan (10/30/2024 5:49 PM EST): >>ASSESSMENT AND PLAN FOR TOBACCO USER WRITTEN ON 10/30/2024 5:46 PM BY NATALIE MEDRANO NP The patient has been advised of the risks of continued smoking: stroke, PA, all forms of cancer, lung disease, and . Options for quitting smoking include: cold turkey, hypnosis, acupuncture, nicotine replacement meds(gum, lozenges, and patches), Buproprion, and Varenicline. Patient [...] of smoking cessation. Agrees to CT scan Resolved Problems ProblemNoted DateDiagnosed DateResolved DateAcute non-recurrent maxillary igwqxdmrt13ilateral otitis media with stgwadps94/15/2024 10/30/2024 Immunizations ImmunizationAdministration DatesNext DueInfluenza, High Dose Seasonal, Preservative Free06/06/2020,05/18/2019,06/12/2018,07/06/2017Influenza, High-dose Seasonal, Quadrivalent, Preservative Free07/06/2023,06/01/2022Influenza, injectable, quadrivalent, preservative free06/28/2017Influenza, recombinant, quadrivalent, injectable, preservative free07/29/2021Influenza, seasonal, rayekobhwf75/25/2020,07/24/2013Influenza, seasonal, injectable, preservative free06/17/2015Pneumococcal Conjugate PCV 13005/18/2019Pneumococcal Polysaccharide MAHJ0998,04/07/2014Zoster, live06/22/2016,01/28/2014 Family History Medical HistoryRelationNameCommentsDiabetesBrotherHeart diseaseBrotherfire Maternal GrandfatherHeart diseaseMaternal GrandmotherCrohn's diseaseMotherHeart diseaseMotherhigh triglyceridesMotherCancerPaternal GrandfatherDiabetesPaternal GrandmotherRelationNameStatusCommentsBrotherFatherAliveMaternal Grandfather (Age 86)Maternal GrandmotherDeceased (Age 86)MotherDeceasedPaternal GrandfatherDeceased (Age 42)Paternal GrandmotherDeceased Social History Tobacco UseTypesPacks/DayYears UsedDateSmoking Tobacco: Every DayCigarettes Smokeless Tobacco: Never Tobacco Cessation:Ready to Q uit: No; Counseling Given: Yes Alcohol UseStandard Drinks/WeekCommentsYes1 (1 standard drink = 0.6 oz pure alcohol)caffeine 2-3 cups per dayHumiliation, Afraid, Rape, and Kick questionnaireAnswerDate RecordedWithin the last year, have you been afraid of your partner or ex-partner?No10/26/2023Within the last year, have you been humiliated or emotionally abused in other ways by your partner or ex-partner?No 10/26/2023Within the last year, have you been kicked, hit, slapped, or otherwise physically hurt by your partner or ex-partner?No10/26/2023Within the last year, have you been raped or forced to have any kind of sexual activity by your part ner or ex-partner?No10/26/2023Social Connection and Isolation PanelAnswerDate RecordedIn a typical week, how many times do you talk on the phone with family, friends, or neighbors?More than three times a week10/26/2023How often do you get together with friends or relatives?More than three times a week10/26/2023How often do you attend buddhism or pentecostalism services?1 to 4 times per year10/26/2023 Do you belong to any clubs or organizations such as buddhism groups, unions, fraternal or athletic groups, or school groups?Yes10/26/2023How often do you attend meetings of the clubs or organizations you belong to?More than 4 times per year10/26/2023re you , , , , never , or living with a partner?Ndgpyav5610/26/2023UDIT-CAnswerDate RecordedQ1: How often do you have a drink containing alcohol?Monthly or less10/26/2023Q2: How many drinks containing alcohol do you have on a typical day when you are drinking?Patient does not drink10/26/2023Q3: How often do you have six or more drinks on one occasion?Never10/26/2023Overall Financial Resource Strain (CARDIA) AnswerDate RecordedHow hard is it for you to pay for the very basics like food, housing, medical care, and heating?Not hard at all10/26/2023HQ-2AnswerDate RecordedPatient Health Questionnaire-2 Zygwf606Finmountain west medical center [place] [facility] - Occupational Stress QuestionnaireAnswerDate RecordedDo you feel stress - tense, restless, nervous, or anxious, or unable to sleep at night because yourmind is troubled all the time - these days?Not at all10/26/2023 Exercise Vital SignAnswerDate RecordedOn average, how many days per week do you engage in moderate to strenuous exercise (like a brisk walk)?2 days10/26/2023On average, how many minutes do you engage in exercise at this level?50 min 10/26/2023Hunger Vital SignAnswerDate RecordedWithin the past 12 months, you worried that your food would run out before you got the money to buymore.Never true10/26/2023Within the past 12 months, the food you bought just didn't last and you didn't have money to get more.Never true10/26/2023RAPARE - TransportationAnswerDate RecordedIn the past 12 months, has lack of transportation kept you from medical appointments or from getting medications?No 10/26/2023In the past 12 months, has lack of transportation kept you from meetings, work, or from getting things needed for daily living?No10/26/2023 Housing Stability Vital SignAnswerDate RecordedIn the last 12 months, was there a time when you were not able to pay the mortgage or rent on time?No10/26/2023In the last 12 months, how many places have you lived?In the last 12 months, was there a time when you did not have a steady place to sleep or slept in ashelter (including now)?No10/26/2023CommentsUnknownSex and Gender InformationValueDate RecordedSex Assigned at BirthNot on fileLegal SexFemale 11/23/2022 6:47 PM EDTGender IdentityNot on fileSexual OrientationNot on file Last Filed Vital Signs Vital SignReadingTime TakenCommentsBlood Hdywkriy900/7608 3:45 PM EDT Hvpih573404/29/2025 3:45 PM LBVPiqfstwgozc22.3 ??C (97.3 ??F)04/29/2025 3:45 PM EDTRespiratory Arcd266104/29/2025 3:45 PM EDTOxygen Oerltndufk89%04/29/2025 3:45 PM EDTInhaled Oxygen Concentration--Cfonbz74.4 kg (124 lb 6.4 oz)04/29/2025 3:45 PM OWTZjxngo008.1 cm (5' 5 )04/25/2024 1:46 PM EDTBody Mass Index20.7004/25/2024 1:46 PM EDT Plan of Treatment Health MaintenanceDue DateLast DoneCommentsCT Kjyzrxngylvo1952Colonoscopy 1950FIT1950FOBT1950 8487Bmhpixjilzyww1952Pneumococcal Vaccine: 65+ Years (3 of 3 - PCV20 or PCV21)409/03/2019, 06/22/2016, 04/07/2014Influenza Vaccine (#1)51, 06/01/2022, 07/29/2021, Additional history lvcnvoSudknqxwf01, 12/25/2023, 12/23/2022 Colorectal Cancer Lfrpzlhex96/12/2027FIT-DNA, 08/31/2020, 07/12/2020Diabetes: Hemoglobin E8CAewxxfqezifa93/19/2025, 10/25/2024, 10/06/2023 Procedures Procedure NamePriorityDate/TimeAssociated DiagnosisCommentsPOCT GLYCOSYLATED HEMOGLOBIN (HGB A1C)Uodzwrk6504/29/2025 4:08 PM EDT Type 2 diabetes mellitus without complication, without long-term current use of insulin (HCC) MM TOMOSYNTHESIS SCREENING BI12/26/2024 12:01 PM EDT LAB COLOGUARD?? COLON CANCER DIEFZFZfgxejk17/12/2024 11:45 PM EDT Colon cancer screening from Last 3 Months or Most Recently Relevant to Health Maintenance Results * (ABNORMAL) POCT glycosylated hemoglobin (Hb A1C) docked device (04/29/2025 4:08 PM EDT)ComponentValueRef RangeTest MethodAnalysis TimePerformed At Pathologist SignatureHemoglobin A1C6.6Specimen (Source)Anatomical Location / LateralityCollection Method / VolumeCollection TimeReceived TimeBloodVenous blood specimen / Atehzjk0304/29/2025 4:08 PM EDT Narrative Authorizing ProviderResult TypeResult StatusLisa Vipinjose elias NPPOINT OF CARE TEST ENTER/EDIT ORDERABLESFinal Result * MM TOMOSYNTHESIS SCREENING BI (12/26/2024 12:01 PM EDT)Anatomical Region LateralityModalityOtherSpecimen (Source)Anatomical Location / Laterality Collection Method / VolumeCollection TimeReceived Time12/26/2024 12:01 PM EDT Narrative 12/26/2024 12:02 PM EDT [facility] ?[address] ? [place] [address] ? Mammography Report ? Signed ? Patient: SUSAN,PHOEBE D ?MR#: [id number] ?? : 1950 ?Acct:[id number] ?? Age/Sex: 74 / F ?ADM Date: 04/16/25 ?? Loc: MAMMO ? Attending Dr: Natalie Medrano RAIL CAR UNLOADER ? Ordering Physician: Natalie Medrano NP ?Results: ? Date of Service: 12/25/24 ?Follow Up: ? Procedure(s): MM tomosynthesis screening BI ?? Accession Number(s): [id number] ? cc: Natalie Medrano RAIL CAR UNLOADER ? Patient Name: ? PHOEBE SUSAN ? MR#: [id number] ? : 1950 ? Exam Date: 12/25/2024 ?? Ordering Doctor: PHILIP Medrano CNP ? RADIOLOGY REPORT ? PROCEDURE: ? MM TOMOSYNTHESIS SCREENING BI ? COMPARISON: ? MM TOMOSYNTHESIS SCREENING BI, 12/25/2023. ??MG MAMM SCREEN 3D ?? ARIAN CAD, 12/23/2022. ??MG MAMM SCREEN 3D ARIAN CAD, 01/13/2021. ??MG MAMM ARIAN SCRN W ?? CAD DIG, 01/07/2016. ? INDICATIONS: ? Screening ? Calculator Name ? NCI Breast Cancer Risk Assessment Tool ?? 5 Year Breast Cancer Risk ? 1.50% ?? Lifetime Breast Cancer Risk ? 3.90% ?? Personal Breast Cancer ?No ?? Personal Ovarian Cancer ? Yes, age 42 ?? Treatments ? None ?? Family Cancers ? Father with lung cancer at age 78. ? LOCATION: ? [facility] ? BREAST COMPOSITION: ? The breasts are heterogeneously dense,which may ?? obscure small masses. ? FINDINGS: ? RIGHT BREAST: ??No significant suspicious finding. ? LEFT BREAST: ??No significant suspicious finding. ? DIAGNOSTIC CATEGORY 1--NEGATIVE. ? RECOMMENDATIONS: ? ROUTINE MAMMOGRAM AND CLINICAL EVALUATION IN 12 MONTHS. ? PLEASE NOTE: ??A NORMAL MAMMOGRAM DOES NOT EXCLUDE THE POSSIBILITY OF BREAST ?? CANCER. ??A CLINICALLY SUSPICIOUS PALPABLE LUMP SHOULD BE BIOPSIED. ? Dictated by: Aleksandr Rawls DO on 12/26/2024 at 11:53 ? Approved by: Aleksandr Rawls DO on 12/26/2024 at 12:01 ? Dictated By: ?Aleksandr Rawls D.O. ? Signed By: ?12/26/24 1202 ? DD/ 1201 ? TD/TT: ? Buffet Attendant: Procedure Note Radiology, Radiologist, MD - 12/26/2024 [place] [address] Mammography Report Signed Patient: MARITZA DAVIS DMR#: [id number] : 1950cct:[id number] Age/Sex: 74 / FADM Date: 12/25/24 Loc: MAMMO Attending Dr: Natalie Medrano NP Ordering Physician: Natalie Medranoults: Date of Service: 12/25/24Follow Up: Procedure(s): MM tomosynthesis screening BI Accession Number(s): [id number] cc: Natalie Medrano NP Patient Name: MARITZA DAVIS MR#: [id number] : 1950 Exam Date: 12/25/2024 Ordering Doctor: PHILIP Medrano CNP RADIOLOGY REPORT PROCEDURE: MM TOMOSYNTHESIS SCREENING BI COMPARISON: MM TOMOSYNTHESIS SCREENING BI, 12/25/2023. MG MAMM UFWMEI7J ARIAN CAD, 12/23/2022. MG MAMM SCREEN 3D ARIAN CAD, 01/13/2021. MG MAMM BILSCRN W CAD DIG, 01/07/2016. INDICATIONS: Screening Calculator Name NCI Breast Cancer Risk Assessment Tool 5 Year Breast Cancer Risk 1.50% Lifetime Breast Cancer Risk 3.90% Personal Breast Cancer No Personal Ovarian Cancer Yes, age 42 Treatments None Family Cancers Father with lung cancer at age 78. LOCATION: [facility] BREAST COMPOSITION: The breasts are heterogeneously dense,which may obscure small masses. FINDINGS: RIGHT BREAST: No significant suspicious finding. LEFT BREAST: No significant suspicious finding. DIAGNOSTIC CATEGORY 1--NEGATIVE. RECOMMENDATIONS: ROUTINE MAMMOGRAM AND CLINICAL EVALUATION IN 12 MONTHS. PLEASE NOTE: A NORMAL MAMMOGRAM DOES NOT EXCLUDE THE POSSIBILITY OFBREAST CANCER. A CLINICALLY SUSPICIOUS PALPABLE LUMP SHOULD BE BIOPSIED. Dictated by: Aleksandr Rawls DO on 12/26/2024 at 11:53 Approved by: Aleksandr Rawls DO on 12/26/2024 at 12:01 Dictated By: Aleksandr Rawls D.O. Signed By:12/26/24 1202 DD/ 1201 TD/TT: Buffet Attendant: Authorizing ProviderResult TypeResult StatusLisa Medrano NPCLINISYNC IMAGING Final Result * Cologuard?? colon cancer screening (11/21/2023 11:45 PM EDT)ComponentValueRef RangeTest MethodAnalysis TimePerformed AtPathologist SignatureNONINV COLON CA DNA+OCC BLD SCRN STL-WLITwydoqniWpbkaupx48/20/2024 9:33 AM EDTEXSUPR (CLIA #:[id number])Comment: NEGATIVE TEST RESULT. A negative Cologuard result indicates a low likelihood that a colorectal cancer (CRC) or advanced adenoma (adenomatous polyps with more advanced pre-malignant features) ??is present. The chance that a person with a negative Cologuard test has a colorectal cancer is less than 1in 1500 (negative predictive value >99.9%) or has an advanced adenoma is less than 5.3% (negative predictive value 94.7%). These data are based on a prospective cross-sectional study of 10,000individuals at average risk for colorectal cancer who were screened with both Cologuard and colonoscopy. (Marbin Vargas al, N Engl J Med 2014;370(14):4533-9548) The normal value (reference range) for this assay is negative. COLOGUARD RE-SCREENING RECOMMENDATION: Periodic colorectal cancer screening is an important part ofpreventive healthcare for asymptomatic individuals at average risk for colorectal cancer. ??Following a negative Cologuard result, the [place] [employer] and U.S. Multi-Society Task Force screening guidelines recommend a Cologuard re-screening interval of 3 years. References: [place] [employer] Guideline for Colorectal Cancer Screening: https://www.cancer.or g/cancer/doxwo-nqsfdf-kijitp/npqhdolty-veatpnbxd-okvugsb/acs-recommendations.htm marvin; Kevon BACK, Jomar KNOX, Carolina MicheleK, Colorectal Cancer Screening: Recommendations for Physicians and Patients from the U.S. Multi-Society Task Force on Colorectal Cancer Screening , Am J Gastroenterology 2017; 112:5958-7429. TEST DESCRIPTION: Composite algorithmic analysis of stool DNA-biomarkers with hemoglobin immunoassay. ?? Quantitative values of individual biomarkers are not reportable and are not associated with individual biomarker result reference ranges. Cologuard is intended for colorectal cancer screening ofadults of either sex, 45 years or older, who are at average-risk for colorectal cancer (CRC). Cologuard has been approved for use by the U.S. FDA. The performance of Cologuard was established in a cross sectional study of average-risk adults aged 50-84. Cologuard performance in patients ages 45 to 49 years was estimated by sub-group analysis of near-age groups. Colonoscopies performed for a positive result may find as the most clinically significant lesion: colorectal cancer [4.0%], advanced adenoma (including sessile serrated polyps greater than or equal to 1cm diameter) [20%] or non- advanced adenoma [31%]; or no colorectal neoplasia [45%]. These estimates are derived from a prospective cross-sectional screening study of 10,000 individuals at average risk for colorectal cancer who were screened with both Cologuard and colonoscopy. (Marbin Vargas al, N Engl J Med 2014;370(14):9870-1278.) Cologuard may produce a false negative or false positive result (no colorectal cancer or precancerous polyp present at colonoscopy follow up). A negative Cologuard test result does not guarantee the absence of CRC or advanced adenoma (pre-cancer). The current Cologuard screening interval is every 3 years. ([place] [employer] and U.S. Multi-Society Task Force). Cologuard performance data in a 10,000 patient pivotal study using colonoscopy as the reference method can be accessed at the following location: www.[employer].com/results. Additional description of the Cologuard test process, warnings and precautions can be found at www.cologuard.com. Specimen (Source)Anatomical Location / LateralityCollection Method / Volume Collection TimeReceived TimeStool specimen (specimen)11/21/2023 11:45 PM EDT 11/24/2023 10:02 AM EDT Narrative Authorizing ProviderResult TypeResult StatusLisa Vipinupmc [facility]'s hospital of [facility]burghn[facility] NPLAB MOLECULAR DIAGNOSTICS ORDERABLESFinal ResultPerforming OrganizationAddressCity/State/ZIP CodePhone Number .XAOdeo (CLIA #:[id number]) [address] [place] [address], [place] [phone] [employer] (CLIA #:[id number]) [address] [place] [phone] from Last 3 Months or Most Recently Relevant to Health Maintenance Insurance Care Teams Team MemberRelationshipSpecialtyStart DateEnd Date Daniel Lutz MD PCP - GeneralFamily Medicine10/23/23 Natalie Medrano NP Nurse PractitionerFamily Wevccgzu87/1/23
--- NOTE | 2025-09-02 13:02 | XR_ITS ---
[place] [address] Patient Name: SHAHRAM DAVIS MRN: [id number] date: 1950 Sex: F Assigned Patient Location: [facility] Current Patient Location: [facility] Accession/Order Number: [id number] Exam Date: 09/02/2025 13:10 Report Date: 09/02/2025 23:32 At the request of: GUY ROWELL NP Procedure: XR lumbar spine 2-3V 3 views lumbar spine HISTORY: Left lower back pain with relation on the left leg Mild scoliosis. Adequate lumbar lordosis. No fracture. 6 mm L4-5 anterolisthesis. Moderate L4-5 and L5-S1 spondylosis. Extensive lower lumbar facet degeneration. Extensive L1-L2 spondylosis. Diffuse osteopenia XR/XR lumbar spine 2-3V IMPRESSION: Extensive multilevel degeneration greatest in the lower lumbar facets. Mild scoliosis. Impression dictated by: Aleksandr Rawls M.D. 09/02/2025 11:32 PM Dictation Location: [place] [address] Electronically authenticated by: [id number] Y Date: 09/02/2025 23:32
== END 2025-09-02 12:55 | disposition home or self-care (01) ==
LOC: RAD 12:55
PROVIDERS: PCP Nurse Practitioner; Visit Provider Nurse Practitioner
DX: M54.16 Radiculopathy, lumbar region (principal); M51.369 Other intervertebral disc degeneration, lumbar region without mention of lumbar back pain or lower extremity pain
CPT/HCPCS: 72100